=== PATIENT | male | born 1960 | race Caucasian/White ===

== ENCOUNTER 2021-07-14 10:33 | Observation (INO) | payer BC ==
[2021-07-14] MEDS ORDERED: SODIUM CHLORIDE 0.9% 1,000 ML IV STA (11:20)
--- NOTE | 2021-07-14 11:25 | ED ---
General Adult HPI - General Chief complaint: GI Bleed Stated complaint: abd pain Time Seen by Provider: 07/14/21 11:03 Source: patient, RN notes reviewed Mode of arrival: ambulatory Limitations: no limitations - History of Present Illness Initial comments: 60-year-old male presents to the emergency department for evaluation of dark stool. Patient states he has had 3 episodes of stool that is coffee-ground in appearance since yesterday evening. States he is currently on Cipro and Flagyl due to right upper quadrant abdominal pain that is suspected to be cholecystitis. Patient has not had any diagnostic studies, however he is scheduled for an ultrasound on the . States his right upper quadrant pain has mostly resolved, however became concerned about the dark stools so called his PCP who recommended he come to the ER. Patient reports intermittent nausea, though no vomiting. Describes the stools as loose, but not diarrhea. States he has seen a small amount of bright red bleeding on tissue after wiping. Patient reports a low-grade temperature over the past 2 weeks which he has been treating with Tylenol and Motrin. Patient denies sick exposures, headache, dizziness, chest pain, shortness of breath, difficulty breathing, hematuria, or dysuria. No recent travel or dietary changes. - Related Data Home Medications Medication Instructions Recorded Confirmed Ciprofloxacin HCl [Cipro] 500 mg PO Q12H 07/14/21 07/14/21 Desvenlafaxine Succinate [Pristiq 50 mg PO DAILY 07/14/21 07/14/21 ER] lisinopriL 10 mg PO DAILY 07/14/21 07/14/21 metroNIDAZOLE [Flagyl] 500 mg PO Q8H 07/14/21 07/14/21 Allergies Allergy/AdvReac Type Severity Reaction Status Date / Time Penicillins Allergy Rash/Hives Verified 07/14/21 14:54 Review of Systems ROS Statement: Those systems with pertinent positive or pertinent negative responses have been documented in the HPI. ROS Other: All systems not noted in ROS Statement are negative. Past Medical History Additional Past Medical History / Comment(s): Diverticululitis History of Any Multi-Drug Resistant Organisms: None Reported Past Surgical History: Tonsillectomy Past Psychological History: No Psychological Hx Reported Smoking Status: Never smoker Past Alcohol Use History: Rare Past Drug Use History: None Reported General Exam Limitations: no limitations (Well-developed, well-nourished male in no acute distress. Initial temperature 99.7, pulse 122, respirations 20, blood pressure 137/92, pulse ox 96% on room air.) General appearance: alert, in no apparent distress ENT exam: Present: normal exam, normal oropharynx, mucous membranes moist Respiratory exam: Present: normal lung sounds bilaterally. Absent: respiratory distress, wheezes, rales, rhonchi, stridor Cardiovascular Exam: Present: normal rhythm, tachycardia, normal heart sounds GI/Abdominal exam: Present: soft, normal bowel sounds, other (Abdomen is protuberant, but soft and nontender.). Absent: distended, tenderness, guarding, rebound, rigid Rectal exam: Present: normal rectal tone, hemorrhoids (external hemorrhoids present; no bleeding nor edematous) Back exam: Absent: CVA tenderness (R), CVA tenderness (L) Neurological exam: Present: alert, oriented X3, CN II-XII intact Psychiatric exam: Present: normal affect, anxious Skin exam: Present: warm, dry, intact, normal color. Absent: rash Course Vital Signs 07/14/21 07/14/21 07/14/21 10:39 12:10 15:03 Temperature 99.7 F H 99.6 F Pulse Rate 122 H 102 H 110 H Respiratory 20 18 18 Rate Blood Pressure 137/92 133/83 139/90 O2 Sat by Pulse 96 98 95 Oximetry 07/14/21 19:24 Temperature Pulse Rate 116 H Respiratory 18 Rate Blood Pressure 139/97 O2 Sat by Pulse 98 Oximetry - Reevaluation(s) Reevaluation #1: 07/14/21 16:[address] Wells regarding CT findings who recommends bringing this patient into the hospital to expedite process of evaluation. Medical Decision Making - Medical Decision Making 60-year-old male with past medical history of diverticulitis and depression presents to the emergency department for evaluation of dark stools that are coffee-ground in appearance. Had one episode last night and two additional today. Patient is currently taking oral antibiotics, Cipro and Flagyl, as prescribed by his PCP. Also scheduled for an ultrasound of the right upper quadrant later this week to rule out cholecystitis. Upon exam, patient is well-appearing and in no acute distress. He does appear anxious and has a slightly elevated temperature and mild tachycardia. Patient's abdomen is protuberant but soft, eliciting no pain upon palpation. Laboratory studies were obtained and reviewed. Patient does have mild leukocytosis. Hemoglobin stable. FOBT negative. Patient is not taking any iron supplementation in which to attribute dark stool. CT of the abdomen and pelvis was obtained showing a concerning retroperitoneal mass. Findings were discussed with Dr. Wells who recommends hospitalization to expedite evaluation. Spoke with Oma Quezada NP who is agreeable to accept this admission on behalf of [facility]. This patient's care was supervised by my attending, Dr. Burger. - Lab Data Result diagrams: 07/14/21 12:14 07/14/21 12:14 Lab Results 07/14/21 07/14/21 07/14/21 Range/Units 12:05 12:10 12:10 WBC (3.8-10.6) k/uL RBC (4.30-5.90) m/uL Hgb (13.0-17.5) gm/dL Hct (39.0-53.0) % MCV (80.0-100.0) fL MCH (25.0-35.0) pg MCHC (31.0-37.0) g/dL RDW (11.5-15.5) % Plt Count (150-450) k/uL MPV Neutrophils % (Manual) % Lymphocytes % (Manual) % Monocytes % (Manual) % Eosinophils % (Manual) % Basophils % (Manual) % Metamyelocytes % % Neutrophils # (Manual) (1.3-7.7) k/uL Lymphocytes # (Manual) (1.0-4.8) k/uL Monocytes # (Manual) (0-1.0) k/uL Eosinophils # (Manual) (0-0.7) k/uL Basophils # (Manual) (0-0.2) k/uL Metamyelocytes # (Man) (0) k/uL Nucleated RBCs (0-0) /100 WBC Manual Slide Review RBC Morphology PT (9.0-12.0) sec INR (<1.2) APTT (22.0-30.0) sec Sodium (137-145) mmol/L Potassium (3.5-5.1) mmol/L Chloride (98-107) mmol/L Carbon Dioxide (22-30) mmol/L Anion Gap mmol/L BUN (9-20) mg/dL Creatinine (0.66-1.25) mg/dL Est GFR (CKD-EPI)AfAm (>60 ml/min/1.73 sqM) Est GFR (CKD-EPI)NonAf (>60 ml/min/1.73 sqM) Glucose (74-99) mg/dL Plasma Lactic Acid Cheng (0.7-2.0) mmol/L Calcium (8.4-10.2) mg/dL Total Bilirubin (0.2-1.3) mg/dL AST (17-59) U/L ALT (4-49) U/L Alkaline Phosphatase (38-126) U/L Troponin I (0.000-0.034) ng/mL Total Protein (6.3-8.2) g/dL Albumin (3.5-5.0) g/dL Lipase (23-300) U/L Stool Occult Blood Negative (Negative) Blood Type A Positive Blood Type Confirm A Positive Blood Type Recheck No Previous Record Bld Type Recheck Status CABO Indicated Antibody Screen NEGATIVE Spec Expiration Date 07/17/2021 - 231307/14/21 07/14/21 07/14/21 Range/Units 12:14 12:14 12:14 WBC 12.6 H (3.8-10.6) k/uL RBC 4.55 (4.30-5.90) m/uL Hgb 13.2 (13.0-17.5) gm/dL Hct 38.6 L (39.0-53.0) % MCV 85.0 (80.0-100.0) fL MCH 29.1 (25.0-35.0) pg MCHC 34.3 (31.0-37.0) g/dL RDW 13.1 (11.5-15.5) % Plt Count 504 H (150-450) k/uL MPV 7.1 Neutrophils % (Manual) 72 % Lymphocytes % (Manual) 6 % Monocytes % (Manual) 21 % Eosinophils % (Manual) 1 % Basophils % (Manual) 1 % Metamyelocytes % 1 % Neutrophils # (Manual) 9.07 H (1.3-7.7) k/uL Lymphocytes # (Manual) 0.76 L (1.0-4.8) k/uL Monocytes # (Manual) 2.65 H (0-1.0) k/uL Eosinophils # (Manual) 0.13 (0-0.7) k/uL Basophils # (Manual) 0.13 (0-0.2) k/uL Metamyelocytes # (Man) 0.13 H (0) k/uL Nucleated RBCs 0 (0-0) /100 WBC Manual Slide Review Performed RBC Morphology Normal PT 12.2 H (9.0-12.0) sec INR 1.1 (<1.2) APTT 23.7 (22.0-30.0) sec Sodium 132 L (137-145) mmol/L Potassium 4.1 (3.5-5.1) mmol/L Chloride 102 (98-107) mmol/L Carbon Dioxide 27 (22-30) mmol/L Anion Gap 3 mmol/L BUN 14 (9-20) mg/dL Creatinine 0.86 (0.66-1.25) mg/dL Est GFR (CKD-EPI)AfAm >90 (>60 ml/min/1.73 sqM) Est GFR (CKD-EPI)NonAf >90 (>60 ml/min/1.73 sqM) Glucose 105 H (74-99) mg/dL Plasma Lactic Acid Cheng (0.7-2.0) mmol/L Calcium 9.1 (8.4-10.2) mg/dL Total Bilirubin 0.5 (0.2-1.3) mg/dL AST 27 (17-59) U/L ALT 22 (4-49) U/L Alkaline Phosphatase 78 (38-126) U/L Troponin I (0.000-0.034) ng/mL Total Protein 5.8 L (6.3-8.2) g/dL Albumin 3.1 L (3.5-5.0) g/dL Lipase 167 (23-300) U/L Stool Occult Blood (Negative) Blood Type Blood Type Confirm Blood Type Recheck Bld Type Recheck Status Antibody Screen Spec Expiration Date 07/14/21 07/14/21 Range/Units 12:14 12:14 WBC (3.8-10.6) k/uL RBC (4.30-5.90) m/uL Hgb (13.0-17.5) gm/dL Hct (39.0-53.0) % MCV (80.0-100.0) fL MCH (25.0-35.0) pg MCHC (31.0-37.0) g/dL RDW (11.5-15.5) % Plt Count (150-450) k/uL MPV Neutrophils % (Manual) % Lymphocytes % (Manual) % Monocytes % (Manual) % Eosinophils % (Manual) % Basophils % (Manual) % Metamyelocytes % % Neutrophils # (Manual) (1.3-7.7) k/uL Lymphocytes # (Manual) (1.0-4.8) k/uL Monocytes # (Manual) (0-1.0) k/uL Eosinophils # (Manual) (0-0.7) k/uL Basophils # (Manual) (0-0.2) k/uL Metamyelocytes # (Man) (0) k/uL Nucleated RBCs (0-0) /100 WBC Manual Slide Review RBC Morphology PT (9.0-12.0) sec INR (<1.2) APTT (22.0-30.0) sec Sodium (137-145) mmol/L Potassium (3.5-5.1) mmol/L Chloride (98-107) mmol/L Carbon Dioxide (22-30) mmol/L Anion Gap mmol/L BUN (9-20) mg/dL Creatinine (0.66-1.25) mg/dL Est GFR (CKD-EPI)AfAm (>60 ml/min/1.73 sqM) Est GFR (CKD-EPI)NonAf (>60 ml/min/1.73 sqM) Glucose (74-99) mg/dL Plasma Lactic Acid Cheng 1.1 (0.7-2.0) mmol/L Calcium (8.4-10.2) mg/dL Total Bilirubin (0.2-1.3) mg/dL AST (17-59) U/L ALT (4-49) U/L Alkaline Phosphatase (38-126) U/L Troponin I <0.012 (0.000-0.034) ng/mL Total Protein (6.3-8.2) g/dL Albumin (3.5-5.0) g/dL Lipase (23-300) U/L Stool Occult Blood (Negative) Blood Type Blood Type Confirm Blood Type Recheck Bld Type Recheck Status Antibody Screen Spec Expiration Date - Radiology Data Radiology results: report reviewed, image reviewed Disposition Clinical Impression: Retroperitoneal mass, Dark stools Disposition: ADMITTED IP TO THIS [facility] Condition: Serious Decision Date: 07/14/21 Decision Time: 16:47
[2021-07-14 12:39] LABS: ALT 22 U/L (4-49); AST 27 U/L (17-59); African American GFR (CKD) >90 (>60 ml/min/1.73 sqM); Albumin 3.1 g/dL (3.5-5.0); Alkaline Phosphatase 78 U/L (38-126); Anion Gap 3 mmol/L; Blood Urea Nitrogen 14 mg/dL (9-20); Calcium 9.1 mg/dL (8.4-10.2); Carbon Dioxide 27 mmol/L (22-30); Chloride 102 mmol/L (98-107); Glucose 105 mg/dL (74-99); Lipase 167 U/L (23-300); Non-African American GFR(CKD) >90 (>60 ml/min/1.73 sqM); Potassium 4.1 mmol/L (3.5-5.1); Sodium 132 mmol/L (137-145); Total Bilirubin 0.5 mg/dL (0.2-1.3); Total Protein 5.8 g/dL (6.3-8.2)
[2021-07-14 12:42] LABS: HCT 38.6 % (39.0-53.0); HGB 13.2 gm/dL (13.0-17.5); INR 1.1 (<1.2); MCH 29.1 pg (25.0-35.0); MCHC 34.3 g/dL (31.0-37.0); Mean Platelet Volume 7.1; Partial Thromboplastin Time 23.7 sec (22.0-30.0); Platelet Count 504 k/uL (150-450); Prothrombin Time 12.2 sec (9.0-12.0); RBC 4.55 m/uL (4.30-5.90); RDW 13.1 % (11.5-15.5); WBC 12.6 k/uL (3.8-10.6)
--- NOTE | 2021-07-14 13:28 | CT ---
EXAMINATION TYPE: CT abdomen pelvis w con DATE OF EXAM: 07/14/2021 COMPARISON: CT 08/13/2012 HISTORY: Hx Diverticulitis, abd pain CT DLP: 1304.1 mGycm Automated exposure control for dose reduction was used. TECHNIQUE: Helical acquisition of images from the lung bases through the pelvis have been completed. CONTRAST: Performed without Oral Contrast and with IV Contrast, patient injected with 100 ml mL of Isovue 300. FINDINGS: LUNG BASES: No significant abnormality is appreciated. AORTA: No significant abnormality is appreciated. LIVER/GB: No significant abnormality is appreciated. PANCREAS: No significant abnormality is seen. SPLEEN: No significant abnormality is seen. ADRENALS: No significant abnormality is seen. KIDNEYS: There is been interval development of a large soft tissue mass associated with the lower kalyn e of the right kidney measuring approximately 9.8 cm in cephalad to caudal dimension by 10 cm in AP d imension by 9.3 cm in transverse dimension. There is some thickening of the fascia anterior to the ri ght kidney, multiple enlarged nodes are present at this level. REPRODUCTIVE ORGANS: Prostate is enlarged line there is prominence of the seminal vesicles as on prio r exam BOWEL: Some diverticular changes associated with the colon. Mass at the lower pole of the right kidn ey and midpole extends and shows contact with the right colon, cecum region FREE AIR: No Free Air visible. ASCITES: None visible. PELVIC ADENOPATHY: Some mild inflammatory changes are present along the iliac vasculature on the rig ht, findings are indeterminate. RETROPERITONEAL ADENOPATHY: Large retroperitoneal mass is present anterior to the aorta measuring ap proximately 9.3 cm in transverse dimension by 7 cm in AP dimension by 8 cm in cephalad to caudal dime nsion and is likely adherent to the anterior aspect of the aorta, partially encasing the inferior mes enteric artery, there are additional enlarged retroperitoneal nodes at the level of the aorta and inf erior vena cava URINARY BLADDER: No significant abnormality is seen. OSSEOUS STRUCTURES: No significant abnormality is seen. IMPRESSION: CORRELATE FOR POSSIBLE LYMPHOMA with involvement of the kidney and possibly cecum as described
[2021-07-14 13:37] LABS: Basophils # (M) 0.13 k/uL (0-0.2); Eosinophils # (M) 0.13 k/uL (0-0.7); Lymphocytes # (M) 0.76 k/uL (1.0-4.8); Metamyelocytes # (M) 0.13 k/uL (0); Metamyelocytes % 1 %; Monocytes # (M) 2.65 k/uL (0-1.0); Neutrophils # (M) 9.07 k/uL (1.3-7.7); Neutrophils % (M) 72 %; Nucleated Red Blood Cells 0 /100 WBC (0-0); Total Cells Counted 200
[2021-07-14] MEDS ORDERED: ALPRAZolam 0.25 MG TAB PO PRN (16:43)
[2021-07-14] MEDS ORDERED: HYDROmorphone 0.5 MG/0.5 ML SYRINGE IVP PRN (16:43)
[2021-07-14] MEDS ORDERED: ONDANSETRON 4 MG/2 ML VIAL IVP PRN (16:43)
[2021-07-14] MEDS ORDERED: NALOXONE 0.4 MG/ML 1 ML VIAL IV PRN (16:43)
[2021-07-14] MEDS: FAMOTIDINE 20 MG TAB PO SCH (21:59)
[2021-07-15] MEDS: lisinopriL 10 MG TAB PO SCH (09:46)
[2021-07-15] MEDS: FAMOTIDINE 20 MG TAB PO SCH (09:46)
[2021-07-15] MEDS: DESVENLAFAXINE SUCCINATE 50 MG TAB.ER.24H PO SCH (09:46)
[2021-07-15] MEDS ORDERED: RX INFO: IV CONTRAST WAS GIVEN 1 EACH MISC MISCELLANE PRN (10:47)
[2021-07-15 10:50] LABS: HCT 37.3 % (39.6-50.0); HGB 12.1 g/dL (13.0-17.0); MCH 27.6 pg (27.0-32.0); MCHC 32.4 g/dL (32.0-37.0); MCV 85.2 fL (80.0-97.0); Platelet Count 470 X 10*3/uL (140-440); RBC 4.38 X 10*6/uL (4.40-5.60); RDW 12.7 % (11.5-14.5); WBC 12.64 X 10*3/uL (4.50-10.00)
[2021-07-15 11:17] LABS: Anion Gap 11.1 mmol/L (10.00-18.00); BUN/Creat Ratio 15.89 Ratio (12.00-20.00); Blood Urea Nitrogen 14.3 mg/dL (9.0-27.0); Calcium 8.7 mg/dL (8.7-10.3); Carbon Dioxide 22.9 mmol/L (20.0-27.5); Non-African American GFR(CKD) 93.2 (60.0-200.0); Potassium 4.9 mmol/L (3.5-5.5)
--- NOTE | 2021-07-15 12:09 | P.CONS ---
History of Present Illness - Reason for Consult Consult date: 07/15/21 Retroperitoneeal Mass Requesting physician: Janee Rnagel - Chief Complaint Abdominal Pain - History of Present Illness Mr. Santana is a pleasant male who presented with Right Upper quadrant abdominal pain. CT scan in emergency department was performed and revealed conc erning findings that are possibly consistent with malignancy. CT Abdomen and Pelvis revealed Large Retroperitoneal mass present anterior to the aorta, approximately 9.3cm in transverse dimension by 7cm AP, by 8cm in cephalad to caudal dimension and is likely adherent to the anterior aspect of the aorta. Radiologist also notes partial encasement of the inferior mesenteric artery. Additional enlarged lymph nodes at the level of the aorta and inferior to the vena cava. Right kidney was also mentioned as a lower pole mass and midpole mass extends and contacts with the right colon and cecum. Enlarged prostate noted. Because of these finding the emergency department team contacted Dr. Wells and have asked us to further evaluate. Patient seen and examined this morning. There was no palpable adenopathy on exam. Review of Systems All systems: negative Constitutional: Reports as per HPI Past Medical History Past Medical History: Hyperlipidemia, Hypertension, Pneumonia Additional Past Medical History / Comment(s): Diverticululitis History of Any Multi-Drug Resistant Organisms: None Reported Past Surgical History: Tonsillectomy Additional Past Surgical History / Comment(s): mumps, colonoscopy 2016 Past Anesthesia/Blood Transfusion Reactions: No Reported Reaction Past Psychological History: No Psychological Hx Reported Smoking Status: Never smoker Past Alcohol Use History: Rare Past Drug Use History: None Reported - Past Family History Mother Family Medical History: Cancer Additional Family Medical History / Comment(s): at age 45 of breast cancer Father Family Medical History: AFIB, Myocardial Infarction ([place]) Additional Family Medical History / Comment(s): cabbag. Sister(s) Family Medical History: Cancer Additional Family Medical History / Comment(s): breast cancer Medications and Allergies Home Medications Medication Instructions Recorded Confirmed Type Ciprofloxacin HCl [Cipro] 500 mg PO Q12H 07/14/21 07/14/21 History Desvenlafaxine Succinate [Pristiq 50 mg PO DAILY 07/14/21 07/14/21 History ER] lisinopriL 10 mg PO DAILY 07/14/21 07/14/21 History metroNIDAZOLE [Flagyl] 500 mg PO Q8H 07/14/21 07/14/21 History Allergies Allergy/AdvReac Type Severity Reaction Status Date / Time Penicillins Allergy Rash/Hives Verified 07/14/21 14:54 Physical Exam Vitals: Vital Signs Temp Pulse Pulse Resp BP BP Pulse Ox 07/15/21 08:00 99.3 F 117 H 16 135/84 94 L 07/15/21 02:44 99.2 F 112 H 18 124/82 94 L 07/14/21 21:25 98.2 F 128 H 20 151/82 94 L 07/14/21 19:24 116 H 18 139/97 98 07/14/21 15:03 99.6 F 110 H 18 139/90 95 07/14/21 12:10 102 H 18 133/83 98 Intake and Output 07/14/21 07/15/21 07/15/21 22:59 06:59 14:59 Other: # Voids 1 Weight 81.647 kg - Constitutional General appearance: cooperative, no acute distress - EENT Eyes: EOMI, PERRLA ENT: NA/AT, normal oropharynx - Neck Neck: normal ROM - Respiratory Respiratory: bilateral: CTA - Cardiovascular Rhythm: regular - Gastrointestinal General gastrointestinal: normal bowel sounds, tenderness - Integumentary Integumentary: pale - Neurologic Neurologic: CNII-XII intact - Musculoskeletal Musculoskeletal: generalized weakness, strength equal bilaterally - Psychiatric Psychiatric: A&O x's 3, appropriate affect, intact judgment & insight Results CBC & Chem 7: 07/15/21 07:57 07/15/21 07:57 Labs: Abnormal Lab Results - Last 24 Hours (Table) 07/14/21 07/14/21 07/14/21 Range/Units 12:14 12:14 12:14 WBC 12.6 H (3.8-10.6) k/uL RBC (4.40-5.60) X 10*6/uL Hgb (13.0-17.0) g/dL Hct 38.6 L (39.0-53.0) % Plt Count 504 H (150-450) k/uL MPV (9.5-12.2) fL Neutrophils # (Manual) 9.07 H (1.3-7.7) k/uL Lymphocytes # (Manual) 0.76 L (1.0-4.8) k/uL Monocytes # (Manual) 2.65 H (0-1.0) k/uL Metamyelocytes # (Man) 0.13 H (0) k/uL PT 12.2 H (9.0-12.0) sec Sodium 132 L (137-145) mmol/L Glucose 105 H (74-99) mg/dL Total Protein 5.8 L (6.3-8.2) g/dL Albumin 3.1 L (3.5-5.0) g/dL 07/15/21 Range/Units 07:57 WBC 12.64 H (3.8-10.6) k/uL RBC 4.38 L (4.40-5.60) X 10*6/uL Hgb 12.1 L (13.0-17.0) g/dL Hct 37.3 L (39.0-53.0) % Plt Count 470 H (150-450) k/uL MPV 9.0 L (9.5-12.2) fL Neutrophils # (Manual) (1.3-7.7) k/uL Lymphocytes # (Manual) (1.0-4.8) k/uL Monocytes # (Manual) (0-1.0) k/uL Metamyelocytes # (Man) (0) k/uL PT (9.0-12.0) sec Sodium (137-145) mmol/L Glucose (74-99) mg/dL Total Protein (6.3-8.2) g/dL Albumin (3.5-5.0) g/dL CT scan - abdomen: report reviewed CT scan - pelvis: report reviewed Assessment and Plan (1) Renal mass, right Narrative/Plan: - We have asked Interventional radiology to assess for possible tissue biopsy of of this abnoormality. Will wait their evaluation and decision. Current Visit: Yes Status: Acute Code(s): N28.89 - OTHER SPECIFIED DISORDERS OF KIDNEY AND URETER SNOMED Code(s): 982047268 (2) Retroperitoneal mass Current Visit: Yes Status: Acute Code(s): R19.00 - INTRA-ABD AND PELVIC SWELLING, MASS AND LUMP, UNSP SITE SNOMED Code(s): 25247552 Plan: Will move forward with full staging order for CT chest with contrast placed Will discuss further with IR for possible access point and tissue biopsy for definitive diagnosis Will await pathology to result and further plan of action can then be determined Dr. Wells has discussed the to date findings with patient and answered all of his questions at this point, he is agreeable to further diagnostic approach and plan. Physician Attest: I have completed the full history and physical and agree with above dictation, dictated as a ascribe.
[2021-07-15 12:19] LABS: Basophils # (A) 0.06 X 10*3/uL (0.00-0.10); Basophils % (A) 0.5 %; Eosinophils # (A) 0.05 X 10*3/uL (0.04-0.35); Eosinophils % (A) 0.4 %; Lymphocytes # (A) 0.73 X 10*3/uL (0.90-5.00); Lymphocytes % (A) 5.8 %; Monocytes # (A) 1.84 X 10*3/uL (0.20-1.00); Monocytes % (A) 14.6 %; Neutrophils # (A) 9.91 X 10*3/uL (1.80-7.70); Neutrophils % (A) 78.3 %
[2021-07-15 12:20] LABS: Microcytosis (M) 2+
[2021-07-15 12:35] LABS: ALT 22 U/L (4-49); AST 31 U/L (17-59); African American GFR (CKD) >90 (>60 ml/min/1.73 sqM); Albumin 3.3 g/dL (3.5-5.0); Albumin/Globulin Ratio 1.3; Alkaline Phosphatase 73 U/L (38-126); Anion Gap 10 mmol/L; Blood Urea Nitrogen 16 mg/dL (9-20); Calcium 9.1 mg/dL (8.4-10.2); Carbon Dioxide 20 mmol/L (22-30); Chloride 101 mmol/L (98-107); Globulin 2.6 g/dL; Glucose 112 mg/dL (74-99); Non-African American GFR(CKD) >90 (>60 ml/min/1.73 sqM); Potassium 4.7 mmol/L (3.5-5.1); Sodium 131 mmol/L (137-145); Total Bilirubin 0.5 mg/dL (0.2-1.3); Total Protein 5.9 g/dL (6.3-8.2)
--- NOTE | 2021-07-15 12:37 | P.HPIM ---
History of Present Illness Patient is pleasant 60-year-old male came in with complaints of dark stool about 3 episodes yesterday and some coffee-ground emesis patient was also having right upper quadrant abdominal pain this abdominal pain is associated with food. Patient had an abdominal CT which showed her to be terminal lymphadenopathy consistent with lymphoma because of which oncology was consulted and patient was admitted patient hemoglobin yesterday was around 13 and came down to 12 patient is bit hyponatremic does have leukocytosis which probably 60 secondary to lymphoma. Patient denied any fever chills patient doesn't have any evidence of sepsis at this time. Patient had a fecal occult blood testing which was negative. Patient was also having nausea with the abdominal pain which is predominantly in the right upper quadrant sharp in nature nonradiating. Whenever he has this pain is moderate in severity. REVIEW OF SYSTEMS: CONSTITUTIONAL: No fever, no malaise, no fatigue. HEENT: No recent visual problems or hearing problems. Denied any sore throat. CARDIOVASCULAR: No chest pain, orthopnea, PND, no palpitations, no syncope. PULMONARY: No shortness of breath, no cough, no hemoptysis. GASTROINTESTINAL: No diarrhea. NEUROLOGICAL: No headaches, no weakness, no numbness. HEMATOLOGICAL: Denies any bleeding or petechiae. GENITOURINARY: Denies any burning micturition, frequency, or urgency. MUSCULOSKELETAL/RHEUMATOLOGICAL: Denies any joint pain, swelling, or any muscle pain. ENDOCRINE: Denies any polyuria or polydipsia. The rest of the 14-point review of systems is negative. PHYSICAL EXAMINATION: GENERAL: The patient is alert and oriented x3, not in any acute distress. Well developed, well nourished. HEENT: Pupils are round and equally reacting to light. EOMI. No scleral icterus. No conjunctival pallor. Normocephalic, atraumatic. No pharyngeal erythema. No thyromegaly. CARDIOVASCULAR: S1 and S2 present. No murmurs, rubs, or gallops. PULMONARY: Chest is clear to auscultation, no wheezing or crackles. ABDOMEN: Soft, nontender, nondistended, normoactive bowel sounds. No palpable organomegaly. MUSCULOSKELETAL: No joint swelling or deformity. EXTREMITIES: No cyanosis, clubbing, or pedal edema. NEUROLOGICAL: Gross neurological examination did not reveal any focal deficits. SKIN: No rashes. Assessment and plan -Dark stools which resolved at this time I cannot rule out the upper GI bleed consisting his symptoms of hematemesis again although patient's symptoms resolved at this time we'll consult general surgery for possible upper GI endoscopy -Possibility of acute blood loss anemia from possible upper GI bleed -Right upper quadrant abdominal pain Will rule out cholelithiasis/clinically doesn't appear to have any cholecystitis will obtain ultrasound of the abdomen. Most probably has peptic ulcer disease patient will be started on Protonix Pepcid will be discontinued -Leukocytosis secondary to lymphoma -Incidental finding of a troponin lymphadenopathy biopsy was ordered for this lymphadenopathy -Tachycardia: We will obtain EKG and a TSH can be hypovolemia patient was started on IV fluids and-possible hypovolemic hyponatremia will be started on IV fluids at 100 mL per hour -Hyperlipidemia -Hypertension DVT prophylaxis: SCDs for now. Past Medical History Past Medical History: Hyperlipidemia, Hypertension, Pneumonia Additional Past Medical History / Comment(s): Diverticululitis History of Any Multi-Drug Resistant Organisms: None Reported Past Surgical History: Tonsillectomy Additional Past Surgical History / Comment(s): mumps, colonoscopy 2016 Past Anesthesia/Blood Transfusion Reactions: No Reported Reaction Past Psychological History: No Psychological Hx Reported Smoking Status: Never smoker Past Alcohol Use History: Rare Past Drug Use History: None Reported - Past Family History Mother Family Medical History: Cancer Additional Family Medical History / Comment(s): at age 45 of breast cancer Father Family Medical History: AFIB, Myocardial Infarction ([place]) Additional Family Medical History / Comment(s): cabbag. Sister(s) Family Medical History: Cancer Additional Family Medical History / Comment(s): breast cancer Medications and Allergies Home Medications Medication Instructions Recorded Confirmed Type Ciprofloxacin HCl [Cipro] 500 mg PO Q12H 07/14/21 07/14/21 History Desvenlafaxine Succinate [Pristiq 50 mg PO DAILY 07/14/21 07/14/21 History ER] lisinopriL 10 mg PO DAILY 07/14/21 07/14/21 History metroNIDAZOLE [Flagyl] 500 mg PO Q8H 07/14/21 07/14/21 History Allergies Allergy/AdvReac Type Severity Reaction Status Date / Time Penicillins Allergy Rash/Hives Verified 07/14/21 14:54 Physical Exam Vitals: Vital Signs Temp Pulse Pulse Resp BP BP Pulse Ox 07/15/21 08:00 99.3 F 117 H 16 135/84 94 L 07/15/21 02:44 99.2 F 112 H 18 124/82 94 L 07/14/21 21:25 98.2 F 128 H 20 151/82 94 L 07/14/21 19:24 116 H 18 139/97 98 07/14/21 15:03 99.6 F 110 H 18 139/90 95 Intake and Output 07/14/21 07/15/21 07/15/21 22:59 06:59 14:59 Other: # Voids 1 Weight 81.647 kg Results CBC & Chem 7: 07/15/21 07:57 07/15/21 11:56 Labs: Abnormal Lab Results - Last 24 Hours (Table) 07/14/21 07/14/21 07/14/21 Range/Units 12:14 12:14 12:14 WBC 12.6 H (3.8-10.6) k/uL RBC (4.40-5.60) X 10*6/uL Hgb (13.0-17.0) g/dL Hct 38.6 L (39.0-53.0) % Plt Count 504 H (150-450) k/uL MPV (9.5-12.2) fL Immature Gran # (0.00-0.04) X 10*3/uL Neutrophils # (1.80-7.70) X 10*3/uL Neutrophils # (Manual) 9.07 H (1.3-7.7) k/uL Lymphocytes # (0.90-5.00) X 10*3/uL Lymphocytes # (Manual) 0.76 L (1.0-4.8) k/uL Monocytes # (0.20-1.00) X 10*3/uL Monocytes # (Manual) 2.65 H (0-1.0) k/uL Metamyelocytes # (Man) 0.13 H (0) k/uL PT 12.2 H (9.0-12.0) sec Sodium 132 L (137-145) mmol/L Carbon Dioxide (22-30) mmol/L Glucose 105 H (74-99) mg/dL Total Protein 5.8 L (6.3-8.2) g/dL Albumin 3.1 L (3.5-5.0) g/dL 07/15/21 07/15/21 07/15/21 Range/Units 07:57 07:57 11:56 WBC 12.64 H (3.8-10.6) k/uL RBC 4.38 L (4.40-5.60) X 10*6/uL Hgb 12.1 L (13.0-17.0) g/dL Hct 37.3 L (39.0-53.0) % Plt Count 470 H (150-450) k/uL MPV 9.0 L (9.5-12.2) fL Immature Gran # 0.05 H (0.00-0.04) X 10*3/uL Neutrophils # 9.91 H (1.80-7.70) X 10*3/uL Neutrophils # (Manual) (1.3-7.7) k/uL Lymphocytes # 0.73 L (0.90-5.00) X 10*3/uL Lymphocytes # (Manual) (1.0-4.8) k/uL Monocytes # 1.84 H (0.20-1.00) X 10*3/uL Monocytes # (Manual) (0-1.0) k/uL Metamyelocytes # (Man) (0) k/uL PT (9.0-12.0) sec Sodium 134 L 131 L (137-145) mmol/L Carbon Dioxide 20 L (22-30) mmol/L Glucose 112 H (74-99) mg/dL Total Protein 5.9 L (6.3-8.2) g/dL Albumin 3.3 L (3.5-5.0) g/dL Thrombosis Risk Factor Assmnt - Choose All That Apply Any of the Below Risk Factors Present?: Yes Each Factor Represents 1 point: Age 41-60 years, Obesity (BMI >25) Other Risk Factors: Yes Each Risk Factor Represents 2 Points: Malignancy Other congenital or acquired thrombophilia - If yes, enter type in comment: No Thrombosis Risk Factor Assessment Total Risk Factor Score: 4 Thrombosis Risk Factor Assessment Level: Moderate Risk
--- NOTE | 2021-07-15 14:05 | CT ---
EXAMINATION TYPE: CT chest w con DATE OF EXAM: 07/15/2021 COMPARISON: CT abdomen and pelvis 07/14/2021 HISTORY: 60-year-old male enlarged lymph nodes, staging exam TECHNIQUE: Contiguous axial scanning of the chest after the administration of 100 mL of Isovue 300. Coronal/sagittal reconstructions performed. CT DLP: 744mGycm. Automatic exposure control utilized for a dose reduction. FINDINGS: Heart normal size with trace anterior pericardial fluid. Aorta normal caliber with conventional arch vessel branching anatomy. No axillary, internal mammary chain, mediastinal, retrocrural, or hilar lymphadenopathy by CT size cr iteria. Strandy areas of atelectasis or scarring in the lower lungs. No consolidation or pleural effusion oth erwise seen. No suspicious pulmonary nodule or mass. Visualized upper abdomen shows no retroperitoneal lymphadenopathy and partially visualized mass invol ving the lateral aspect of the right kidney. Bones: No osseous destructive process. IMPRESSION: 1. No thoracic lymphadenopathy by CT size criteria. No suspicious pulmonary nodules. 2. Strandy areas of atelectasis or scarring in the lower lungs. 3. Known retroperitoneal lymphadenopathy in the upper abdomen and partially visualized right renal ma ss.
--- NOTE | 2021-07-15 14:26 | CT ---
EXAMINATION TYPE: CT biopsy renal RT DATE OF EXAM: 07/15/2021 COMPARISON: NONE HISTORY: Right renal mass CT DLP: 1304.1 mGycm The procedure was explained to the patient. The risks, complications, benefits, and alternatives wer e discussed and any questions were answered. Informed consent was obtained. Patient was placed pron e on the CT table and prepped and draped in the usual sterile fashion. Utilizing CT guidance, an 18 gauge core biopsy needle access into the r x-rays x-rays right renal mas s was achieved and two 18 gauge core samples were obtained. The patient was stable throughout the pr ocedure and remained stable upon discharge. IMPRESSION: Successful core biopsy of the right renal mass under CT guidance.
[2021-07-15] MEDS: SODIUM CHLORIDE 0.9% 1,000 ML IV SCH ×2 (14:33→20:35)
[2021-07-15 15:00] VITALS: BMI 30.9
--- NOTE | 2021-07-15 16:09 | US ---
EXAMINATION TYPE: US gallbladder DATE OF EXAM: 07/15/2021 COMPARISON: CT 07/14/2021 CLINICAL HISTORY: r/o gallstones . Kidney mass, Gallbladder scan post CT scan EXAM MEASUREMENTS: Liver Length: 17.5 cm Gallbladder Wall: 0.2 cm CBD: 0.5 cm Right Kidney: 14.1 x7.9 x 9.4 cm Pancreas: Tail obscured by overlying bowel gas Liver: Obscured by overlying bowel gas Gallbladder: No stones seen Evidence for sonographic Leblanc's sign: No CBD: wnl Right Kidney: Prominent renal pelvis , large Hypoechoic mass with internal vascularity measuring 7.7 x 6.7 x 8.6cm Large Kidney mass seen with internal vascularity, limited exam due to patient body habitus and bowel gas. IMPRESSION: 1. Large right renal mass measuring 8.6 cm. 2. No diagnostic evidence of gallstones.
--- NOTE | 2021-07-15 16:34 | P.GSCN ---
History of Present Illness Consult date: 07/15/21 History of present illness: CHIEF COMPLAINT: GI bleed HISTORY OF PRESENT ILLNESS: This is a 60-year-old male who presented to the emergency room with dark stools. He reports that he was having black stools that started yesterday evening. He is currently been on antibiotics for right upper quadrant abdominal pain with suspected cholecystitis. He is scheduled for an ultrasound on July 17. His rapid quadrant abdominal pain has resolved. He denies any nausea or vomiting. Hemoglobin 13.2 on admission down to 12.1. Patient had a computed tomography scan of the abdomen that reported to correlate for possible lymphoma and concerns of a large retroperitoneal mass. He is scheduled for biopsy by interventional radiology. And oncology is following. Surgical service has been consult for EGD for further evaluation of his stools. Fecal occult blood was negative. PAST MEDICAL HISTORY: Diverticulitis PAST SURGICAL HISTORY: See list. MEDICATIONS: See list. ALLERGIES: See list. SOCIAL HISTORY: No illicit drug use. REVIEW OF SYSTEMS: CONSTITUTIONAL: Denies fever or chills. HEENT: Denies blurred vision, vision changes, or eye pain. Denies hemoptysis CARDIOVASCULAR: Denies chest pain or pressure. RESPIRATORY: No shortness of breath. GASTROINTESTINAL: See HPI for pertinent findings HEMATOLOGIC: Denies bleeding disorders. GENITOURINARY: Denies any blood in urine or increased urinary frequency. SKIN: Denies pruitis. Denies rash. PHYSICAL EXAM: VITAL SIGNS: Reviewed GENERAL: Well-developed in no acute distress. HEENT: No sclera icterus. Extraocular movements grossly intact. Moist buccal mucosa. Head is atraumatic, normocephalic. No nasal drainage. ABDOMEN: Soft. Nondistended. Nontender NEUROLOGIC: Alert and oriented. Cranial nerves II through XII grossly intact. LABORATORY DATA: WBC is 12.64 hemoglobin 12.1 platelets 470 Sodium 131 potassium 4.7 creatinine 0.74 TSH is 0.722 Stool for occult blood negative C. diff negative COVID-19 not detected IMAGING: Computed tomography scan of pelvis correlate for possible lymphoma with involvement of the kidney and possible cecum as described. There is a large retroperitoneal mass measuring 9.3 cm. Large soft tissue mass associated with the lower pole of the kidney Chest CT no suspicious pulmonary nodules no thoracic lymphadenopathy. Known retroperitoneal lymphadenopathy in the upper abdomen and partially visualized right renal mass Gallbladder ultrasound shows large right renal mass measuring 8.6 cm. No diagnostic evidence of gallstones. Leblanc sign negative CBD within normal limits. ASSESSMENT: 1. Black stools and concerns of GI bleed 2. Large right renal mass status post core biopsy 3. Retroperitoneal mass PLAN: -Patient scheduled for EGD with Dr. ferrera tomorrow 07/16/2021 -Keep patient nothing by mouth after midnight -Continue PPI -Continue monitor for any signs or symptoms of bleeding -Continue to monitor hemoglobin -Continue oncology workup -Continue supportive care Thank you for this consultation Physician Cafe Operator note has been reviewed by physician. Signing provider agrees with the documented findings, assessment, and plan of care. Past Medical History Past Medical History: Hyperlipidemia, Hypertension, Pneumonia Additional Past Medical History / Comment(s): Diverticululitis History of Any Multi-Drug Resistant Organisms: None Reported Past Surgical History: Tonsillectomy Additional Past Surgical History / Comment(s): mumps, colonoscopy 2016 Past Anesthesia/Blood Transfusion Reactions: No Reported Reaction Past Psychological History: No Psychological Hx Reported Smoking Status: Never smoker Past Alcohol Use History: Rare Past Drug Use History: None Reported - Past Family History Mother Family Medical History: Cancer Additional Family Medical History / Comment(s): at age 45 of breast cancer Father Family Medical History: AFIB, Myocardial Infarction ([place]) Additional Family Medical History / Comment(s): cabbag. Sister(s) Family Medical History: Cancer Additional Family Medical History / Comment(s): breast cancer Medications and Allergies Home Medications Medication Instructions Recorded Confirmed Type Ciprofloxacin HCl [Cipro] 500 mg PO Q12H 07/14/21 07/14/21 History Desvenlafaxine Succinate [Pristiq 50 mg PO DAILY 07/14/21 07/14/21 History ER] lisinopriL 10 mg PO DAILY 07/14/21 07/14/21 History metroNIDAZOLE [Flagyl] 500 mg PO Q8H 07/14/21 07/14/21 History Allergies Allergy/AdvReac Type Severity Reaction Status Date / Time Penicillins Allergy Rash/Hives Verified 07/14/21 14:54 Surgical - Exam Vital Signs Temp Pulse Resp BP Pulse Ox 99.7 F H 122 H 20 137/92 96 07/14/21 10:39 07/14/21 10:39 07/14/21 10:39 07/14/21 10:39 07/14/21 10:39 Results - Labs 07/15/21 07:57 07/15/21 11:56 Abnormal Lab Results - Last 24 Hours (Table) 07/15/21 07/15/21 07/15/21 Range/Units 07:57 07:57 11:56 WBC 12.64 H (4.50-10.00) X 10*3/uL RBC 4.38 L (4.40-5.60) X 10*6/uL Hgb 12.1 L (13.0-17.0) g/dL Hct 37.3 L (39.6-50.0) % Plt Count 470 H (140-440) X 10*3/uL MPV 9.0 L (9.5-12.2) fL Immature Gran # 0.05 H (0.00-0.04) X 10*3/uL Neutrophils # 9.91 H (1.80-7.70) X 10*3/uL Lymphocytes # 0.73 L (0.90-5.00) X 10*3/uL Monocytes # 1.84 H (0.20-1.00) X 10*3/uL Sodium 134 L 131 L (135-145) mmol/L Carbon Dioxide 20 L (22-30) mmol/L Glucose 112 H (74-99) mg/dL Total Protein 5.9 L (6.3-8.2) g/dL Albumin 3.3 L (3.5-5.0) g/dL Diabetes panel 07/15/21 07/15/21 Range/Units 07:57 11:56 Sodium 134 L 131 L (135-145) mmol/L Potassium 4.9 4.7 (3.5-5.5) mmol/L Chloride 100 101 (96-109) mmol/L Carbon Dioxide 22.9 20 L (20.0-27.5) mmol/L BUN 14.3 16 (9.0-27.0) mg/dL Creatinine 0.9 0.74 (0.6-1.5) mg/dL Glucose 101 112 H (70-110) mg/dL Calcium 8.7 9.1 (8.7-10.3) mg/dL AST 31 (17-59) U/L ALT 22 (4-49) U/L Alkaline Phosphatase 73 (38-126) U/L Total Protein 5.9 L (6.3-8.2) g/dL Albumin 3.3 L (3.5-5.0) g/dL Thyroid panel 07/15/21 Range/Units 11:56 TSH 0.722 (0.465-4.680) mIU/L Calcium panel 07/15/21 07/15/21 Range/Units 07:57 11:56 Calcium 8.7 9.1 (8.7-10.3) mg/dL Albumin 3.3 L (3.5-5.0) g/dL Pituitary panel 07/15/21 07/15/21 07/15/21 Range/Units 07:57 11:56 11:56 Sodium 134 L 131 L (135-145) mmol/L Potassium 4.9 4.7 (3.5-5.5) mmol/L Chloride 100 101 (96-109) mmol/L Carbon Dioxide 22.9 20 L (20.0-27.5) mmol/L BUN 14.3 16 (9.0-27.0) mg/dL Creatinine 0.9 0.74 (0.6-1.5) mg/dL Glucose 101 112 H (70-110) mg/dL Calcium 8.7 9.1 (8.7-10.3) mg/dL TSH 0.722 (0.465-4.680) mIU/L Adrenal panel 07/15/21 07/15/21 Range/Units 07:57 11:56 Sodium 134 L 131 L (135-145) mmol/L Potassium 4.9 4.7 (3.5-5.5) mmol/L Chloride 100 101 (96-109) mmol/L Carbon Dioxide 22.9 20 L (20.0-27.5) mmol/L BUN 14.3 16 (9.0-27.0) mg/dL Creatinine 0.9 0.74 (0.6-1.5) mg/dL Glucose 101 112 H (70-110) mg/dL Calcium 8.7 9.1 (8.7-10.3) mg/dL Total Bilirubin 0.5 (0.2-1.3) mg/dL AST 31 (17-59) U/L ALT 22 (4-49) U/L Alkaline Phosphatase 73 (38-126) U/L Total Protein 5.9 L (6.3-8.2) g/dL Albumin 3.3 L (3.5-5.0) g/dL
[2021-07-15] MEDS: ACETAMINOPHEN TAB 325 MG TAB PO PRN (20:34)
[2021-07-15] MEDS: PANTOPRAZOLE 40 MG/10 ML VIAL IVP SCH (20:34)
[2021-07-16] MEDS: ACETAMINOPHEN TAB 325 MG TAB PO PRN (02:49)
[2021-07-16] MEDS ORDERED: METOPROLOL TARTRATE 25 MG TAB PO STA (03:30)
[2021-07-16 08:06] LABS: HCT 39.5 % (39.0-53.0); HGB 12.9 gm/dL (13.0-17.5); MCH 28.4 pg (25.0-35.0); MCHC 32.5 g/dL (31.0-37.0); MCV 87.4 fL (80.0-100.0); Mean Platelet Volume 6.4; Platelet Count 493 k/uL (150-450); RBC 4.52 m/uL (4.30-5.90); RDW 13.2 % (11.5-15.5); WBC 12.6 k/uL (3.8-10.6)
[2021-07-16 08:16] LABS: African American GFR (CKD) >90 (>60 ml/min/1.73 sqM); Anion Gap 5 mmol/L; Blood Urea Nitrogen 12 mg/dL (9-20); Calcium 8.5 mg/dL (8.4-10.2); Carbon Dioxide 24 mmol/L (22-30); Chloride 102 mmol/L (98-107); Glucose 94 mg/dL (74-99); Non-African American GFR(CKD) >90 (>60 ml/min/1.73 sqM); Potassium 4.5 mmol/L (3.5-5.1); Sodium 131 mmol/L (137-145)
[2021-07-16] MEDS: lisinopriL 10 MG TAB PO SCH (08:41)
[2021-07-16] MEDS: PANTOPRAZOLE 40 MG/10 ML VIAL IVP SCH (08:41)
[2021-07-16] MEDS: DESVENLAFAXINE SUCCINATE 50 MG TAB.ER.24H PO SCH (08:41)
[2021-07-16 08:49] VITALS: RESP 16; TEMP 98.8
--- NOTE | 2021-07-16 11:17 | P.DS ---
Providers Date of admission: 07/14/21 16:54 Attending physician: Brit Monroe Consults: 07/14/21 16:44 Consult Physician Routine Consulting Provider: Woodrow Wells Consult Reason/Comments: retroperitoneal mass Do you want consulting provider notified?: Yes, Notify in am 07/15/21 10:49 Consult Physician Routine Consulting Provider: Clifford Jo Consult Reason/Comments: upper Gi scope Do you want consulting provider notified?: Yes Primary care physician: Fe Aguirre [facility] [place] Course: Patient is pleasant 60-year-old male came in with complaints of dark stool about 3 episodes yesterday and some coffee-ground emesis patient was also having right upper quadrant abdominal pain this abdominal pain is associated with food. Patient had an abdominal CT which showed her to be terminal lymphadenopathy consistent with lymphoma because of which oncology was consulted and patient was admitted patient hemoglobin yesterday was around 13 and came down to 12 patient is bit hyponatremic does have leukocytosis which probably 60 secondary to lymphoma. Patient denied any fever chills patient doesn't have any evidence of sepsis at this time. Patient had a fecal occult blood testing which was negative. Patient was also having nausea with the abdominal pain which is predominantly in the right upper quadrant sharp in nature nonradiating. Whenever he has this pain is moderate in severity. 07/16/2021 Patient will undergo upper GI endoscopy today patient's immobility remains stable on admission was 13.2 and presently 12.9. Because of dark stools and concerns of GI bleed patient is undergoing upper GI endoscopy today. Patient had a biopsy of renal mass and retroperitoneal mass possibility of lymphoma patient's serum sodium remains low at 131. PHYSICAL EXAMINATION: GENERAL: The patient is alert and oriented x3, not in any acute distress. Well developed, well nourished. HEENT: Pupils are round and equally reacting to light. EOMI. No scleral icterus. No conjunctival pallor. Normocephalic, atraumatic. No pharyngeal erythema. No thyromegaly. CARDIOVASCULAR: S1 and S2 present. No murmurs, rubs, or gallops. PULMONARY: Chest is clear to auscultation, no wheezing or crackles. ABDOMEN: Soft, nontender, nondistended, normoactive bowel sounds. No palpable organomegaly. MUSCULOSKELETAL: No joint swelling or deformity. EXTREMITIES: No cyanosis, clubbing, or pedal edema. NEUROLOGICAL: Gross neurological examination did not reveal any focal deficits. SKIN: No rashes. Assessment and plan -Dark stools which resolved at this time I cannot rule out the upper GI bleed will undergo upper GI endoscopy if no significant abnormality patient will be discharged today -Possibility of acute blood loss anemia from possible upper GI bleed -Right upper quadrant abdominal pain rule out cholelithiasis ABDOMEN WAS NEGATIVE -Leukocytosis secondary to lymphoma -Incidental finding of a properitoneal lymphadenopathy biopsy was done and patient will follow-up with oncology as an outpatient -Tachycardia: TSH within normal limits, patient will be discharged on low-dose of metoprolol -Hyperlipidemia -Hypertension Patient Condition at Discharge: Serious Plan - Discharge Summary New Discharge Prescriptions: New Metoprolol Succinate [[place] Sprinkle] 25 mg PO DAILY #30 cap Pantoprazole Sodium [Protonix] 40 mg PO DAILY #15 tab Continue Desvenlafaxine Succinate [Pristiq ER] 50 mg PO DAILY lisinopriL 10 mg PO DAILY Discontinued metroNIDAZOLE [Flagyl] 500 mg PO Q8H Ciprofloxacin HCl [Cipro] 500 mg PO Q12H Discharge Medication List Desvenlafaxine Succinate [Pristiq ER] 50 mg PO DAILY 07/14/21 [History] lisinopriL 10 mg PO DAILY 07/14/21 [History] Metoprolol Succinate [[place] Sprinkle] 25 mg PO DAILY #30 cap 07/16/21 [Rx] Pantoprazole Sodium [Protonix] 40 mg PO DAILY #15 tab 07/16/21 [Rx] Follow up Appointment(s)/Referral(s): Woodrow Wells MD [STAFF PHYSICIAN] - 2 Weeks Fe Concepcion III, MD [Primary Care Provider] - 3 Days
[2021-07-16] MEDS ORDERED: PROPOFOL 10 MG/ML 20 ML VIAL IV ONE (12:12)
[2021-07-16] MEDS ORDERED: IV FLUID CONTINUATION 1,000 ML IV ONE (12:13)
--- NOTE | 2021-07-16 12:34 | P.OP ---
Date of Procedure: 07/16/21 Preoperative Diagnosis: Gastritis Postoperative Diagnosis: Antral gastritis Esophagitis Procedure(s) Performed: EGD Anesthesia: MAC Surgeon: Clifford Jo Pathology: other (, antrum, esophagus) Condition: stable Disposition: PACU Description of Procedure: The patient's placed on the endoscopy table in the lateral position. He received IV sedation. The gastroscope placed oropharynx passed in the esophagus into the stomach. Scope was then placed through the pylorus. The first and second portion of the duodenum appeared normal. Scope was then brought back the antrum was mildly inflamed. Biopsies performed. Scope was then retroflexed and the remainder of the stomach appeared normal. The GE junction was at 38 cm. The distal esophagus appeared inflamed and a biopsies performed. Proximal esophagus. Normal. Scope withdrawn for patient.
--- NOTE | 2021-07-16 13:06 | P.PN ---
Subjective Progress Note Date: 07/16/21 Principal diagnosis: Renal mass Dr. kelly saw pt, no acute c/o, he is having EGD today, pt is s/p renal biopsy with no c/o. Objective - Vital Signs Vital signs: Vital Signs Temp 98.8 F 07/16/21 08:00 Pulse 106 H 07/16/21 08:00 Resp 16 07/16/21 08:00 BP 145/85 07/16/21 08:00 Pulse Ox 96 07/16/21 08:00 Intake & Output 07/15/21 07/16/21 07/16/21 18:59 06:59 18:59 Weight 81.647 kg Other: # Voids 2 - Constitutional General appearance: Present: average body habitus, cooperative, no acute distress - EENT Eyes: Present: anicteric sclerae, EOMI ENT: Present: hearing grossly normal - Respiratory Respiratory: bilateral: CTA - Cardiovascular Heart sounds: normal: S1, S2 - Gastrointestinal General gastrointestinal: Present: normal bowel sounds, soft - Neurologic Neurologic: Present: CNII-XII intact - Musculoskeletal Musculoskeletal: Present: strength equal bilaterally - Psychiatric Psychiatric: Present: A&O x's 3, appropriate affect, intact judgment & insight - Labs CBC & Chem 7: 07/16/21 07:40 07/16/21 07:40 Labs: Abnormal Lab Results - Last 24 Hours (Table) 07/15/21 07/15/21 07/15/21 Range/Units 07:57 07:57 11:56 WBC 12.64 H (4.50-10.00) X 10*3/uL RBC 4.38 L (4.40-5.60) X 10*6/uL Hgb 12.1 L (13.0-17.0) g/dL Hct 37.3 L (39.6-50.0) % Plt Count 470 H (140-440) X 10*3/uL MPV 9.0 L (9.5-12.2) fL Immature Gran # 0.05 H (0.00-0.04) X 10*3/uL Neutrophils # 9.91 H (1.80-7.70) X 10*3/uL Lymphocytes # 0.73 L (0.90-5.00) X 10*3/uL Monocytes # 1.84 H (0.20-1.00) X 10*3/uL Sodium 134 L 131 L (135-145) mmol/L Carbon Dioxide 20 L (22-30) mmol/L Glucose 112 H (74-99) mg/dL Total Protein 5.9 L (6.3-8.2) g/dL Albumin 3.3 L (3.5-5.0) g/dL 07/16/21 07/16/21 Range/Units 07:40 07:40 WBC 12.6 H (4.50-10.00) X 10*3/uL RBC (4.40-5.60) X 10*6/uL Hgb 12.9 L (13.0-17.0) g/dL Hct (39.6-50.0) % Plt Count 493 H (140-440) X 10*3/uL MPV (9.5-12.2) fL Immature Gran # (0.00-0.04) X 10*3/uL Neutrophils # (1.80-7.70) X 10*3/uL Lymphocytes # (0.90-5.00) X 10*3/uL Monocytes # (0.20-1.00) X 10*3/uL Sodium 131 L (135-145) mmol/L Carbon Dioxide (22-30) mmol/L Glucose (74-99) mg/dL Total Protein (6.3-8.2) g/dL Albumin (3.5-5.0) g/dL Microbiology - Last 24 Hours (Table) 07/15/21 12:20 Stool Culture - Preliminary Stool - Imaging and Cardiology CT scan - chest: report reviewed Assessment and Plan (1) Renal mass, right Narrative/Plan: S/P biopsy, path pending CT chest neg for mets F/U Dr. Priscilla chase for results and plan Current Visit: Yes Status: Acute Priority: High Code(s): N28.89 - OTHER SPECIFIED DISORDERS OF KIDNEY AND URETER SNOMED Code(s): 954727393 Plan: Doctor attests: I performed a history and physical examination of this patient, developed impression and plan of care, discussed with dictator. I agree with dictators note, documented as a scribe.
[2021-07-16 14:42] VITALS: BP 124/78; PULSE 109
== END 2021-07-16 15:10 | disposition home or self-care (01) ==
LOC: EC 10:33 → 5NMEDONC 16:54 → 6NMEDSUR 19:59
PROVIDERS: ADMIT Hospitalist; ATTEND Hospitalist
DX: K29.50 Unspecified chronic gastritis without bleeding (principal); C85.99 Non-Hodgkin lymphoma, unspecified, extranodal and solid organ sites; K20.90 Esophagitis, unspecified without bleeding; R19.5 Other fecal abnormalities; R00.0 Tachycardia, unspecified; R50.9 Fever, unspecified; D72.829 Elevated white blood cell count, unspecified; N28.89 Other specified disorders of kidney and ureter; N40.0 Benign prostatic hyperplasia without lower urinary tract symptoms; E87.1 Hypo-osmolality and hyponatremia; E78.5 Hyperlipidemia, unspecified; I10 Essential (primary) hypertension; K57.92 Diverticulitis of intestine, part unspecified, without perforation or abscess without bleeding; F32.A Depression, unspecified; E66.9 Obesity, unspecified; Z68.30 Body mass index [BMI] 30.0-30.9, adult; Z20.822 Contact with and (suspected) exposure to COVID-19; Z87.01 Personal history of pneumonia (recurrent); Z79.899 Other long term (current) drug therapy; Z88.0 Allergy status to penicillin; Z71.9 Counseling, unspecified; Z80.3 Family history of malignant neoplasm of breast; Z82.49 Family history of ischemic heart disease and other diseases of the circulatory system
CPT/HCPCS: 96361 ×3; 96360; 99285; 36415; 86900; 86901; 87338; 88305 ×2; 80053 ×2; 80048 ×2; 84443; 83605; 83690; 84484; 85025 ×2; 85027; 85610; 85730; 86850; 82272; 88342; 87324; 88341; 87045; 87046; 87635; 76705; 50200; 77012; 71260; 74177; 43239; G0378 ×4; J2704; C9113 ×2; J1170; Q9967 ×2

== ENCOUNTER 2021-07-30 08:23 | Day surgery (SDC) | payer BC ==
[2021-07-25 17:03] VITALS: BMI 30.9
[~2021-07-30 08:23] MED LIST: ACETAMINOPHEN TAB 500 MG TAB PO PRN; HEPARIN SODIUM,PORCINE/PF 5,000 UNIT/0.5 ML SYRINGE SQ PRN; LACTATED RINGERS 1,000 ML IV SCH; LIDOCAINE 1% (10MG/ML) FOR IV START INTRADERMA PRN; ONDANSETRON 4 MG/2 ML VIAL IVP PRN; Pre Op ABX Message 1 EACH MISC MISCELLANE ONE; fentaNYL (PF) 50 MCG/ML 2 ML AMP IV PRN
[2021-07-30] MEDS ORDERED: MIDAZOLAM 2 MG/2 ML VIAL IVP ONE (09:05)
[2021-07-30] MEDS ORDERED: DEXAMETHASONE SOD PHOSPHATE 4 MG/ML 1 ML VIAL IVP ONE (09:10)
[2021-07-30] MEDS ORDERED: METOPROLOL TARTRATE 5 MG/5 ML VIAL IVP ONE (09:25)
[2021-07-30 09:29] VITALS: RESP 16
--- NOTE | 2021-07-30 10:08 | P.GSHP ---
History of Present Illness H&P Date: 07/30/21 Chief Complaint: Lymphoma This is a 60-year-old male who recently diagnosed lymphoma. Patient presents today for Port-A-Cath placement Past Medical History Past Medical History: Cancer, Hyperlipidemia, Hypertension, Pneumonia Additional Past Medical History / Comment(s): Diverticululitis, recent admit to [facility] for tachycardia and blood in stool, recent mass x [address] kidney and abdominal aorta-dx non hodgkins lymphoma 06/2021), recent gastritis, History of Any Multi-Drug Resistant Organisms: None Reported Past Surgical History: Tonsillectomy Additional Past Surgical History / Comment(s): EGD, colonoscopy x 3, Past Anesthesia/Blood Transfusion Reactions: No Reported Reaction Smoking Status: Never smoker - Past Family History Mother Family Medical History: Cancer Additional Family Medical History / Comment(s): breast cancer Father Family Medical History: AFIB, Myocardial Infarction ([place]) Additional Family Medical History / Comment(s): CABG Sister(s) Family Medical History: Cancer Additional Family Medical History / Comment(s): breast cancer Medications and Allergies Home Medications Medication Instructions Recorded Confirmed Type Desvenlafaxine Succinate [Pristiq 50 mg PO DAILY 07/14/21 07/30/21 History ER] lisinopriL 10 mg PO DAILY 07/14/21 07/30/21 History Pantoprazole Sodium [Protonix] 40 mg PO DAILY #15 tab 07/16/21 07/30/21 Rx Acetaminophen [Tylenol Extra 500 mg PO DIRECTED PRN 07/25/21 07/30/21 History Strength] Cholecalciferol [Vitamin D3 (25 50 mcg PO DAILY 07/25/21 07/30/21 History Mcg = 1000 Iu)] Metoprolol Succinate [Toprol XL] 25 mg PO W/SUPPER 07/25/21 07/30/21 History Allergies Allergy/AdvReac Type Severity Reaction Status Date / Time Penicillins Allergy Rash/Hives Verified 07/30/21 08:38 Surgical - Exam Vital Signs Temp Pulse Resp BP Pulse Ox 98.2 F 135 H 18 137/82 94 L 07/30/21 08:42 07/30/21 08:42 07/30/21 08:42 07/30/21 08:42 07/30/21 08:42 - General well developed, well nourished, no distress - Eyes PERRL - ENT normal pinna - Neck no masses - Respiratory normal expansion - Cardiovascular Rhythm: regular - Abdomen Abdomen: soft, non tender Hernia: incisional Assessment and Plan Assessment: Recent diagnosis of lymphoma. We'll perform Port-A-Cath placement
[2021-07-30] MEDS ORDERED: PROPOFOL 10 MG/ML 20 ML VIAL IV ONE (10:29)
[2021-07-30] MEDS ORDERED: ESMOLOL 100 MG/10 ML VIAL ONE (10:29)
[2021-07-30] MEDS ORDERED: PHENYLEPHRINE-0.9% NACL SYG 1,000 MCG/10 ML SYRINGE ONE (10:29)
[2021-07-30] MEDS ORDERED: LIDOCAINE 1% INJ 10MG/ML (20 ML MDV) ONE (10:29)
[2021-07-30] MEDS ORDERED: fentaNYL (PF) 50 MCG/ML 2 ML AMP ONE (10:29)
[2021-07-30] MEDS ORDERED: HEPARIN SODIUM,PORCINE 100 UNIT/ML 5 ML VIAL IV ONE (10:42)
[2021-07-30] MEDS ORDERED: IOPAMIDOL-370 50ML BTL MISCELLANE ONE (10:42)
[2021-07-30] MEDS ORDERED: LIDOCAINE 1% INJ 10MG/ML (20 ML MDV) SQ ONE (10:50)
[2021-07-30] MEDS ORDERED: SODIUM CHLORIDE 0.9% 50 ML with ceFAZolin 2,000 MG IV ONE ×2 (10:54)
--- NOTE | 2021-07-30 11:27 | P.OP ---
Date of Procedure: 07/30/21 Preoperative Diagnosis: Lymphoma Postoperative Diagnosis: Lymphoma Procedure(s) Performed: Insertion of right subclavian Port-A-Cath Anesthesia: MAGDA Surgeon: Clifford Jo Estimated Blood Loss (ml): 5 Pathology: none sent Condition: stable Disposition: PACU Description of Procedure: MPROCEDURE: The patient was placed on the operating table in the supine position. She received MAC anesthetic. The [right] chest was prepped and draped in the usual sterile fashion. The skin underneath the right clavicle was anesthetized with 1% Xylocaine and using Seldinger technique, the right subclavian vein was cannulized. The wire was placed through the needle and positioned under fluoroscopy. Next, the needle was removed and the port site was anesthetized with 1% Xylocaine. Skin was incised with #15 blade and port pocket was made using blunt and sharp dissection. Following this the catheter was attached to the sport and the port was flushed. The port was positioned into the pocket site and was secured with 3-0 Vicryl suture. The catheter was then brought out through the wire site and then the dilator sheath was placed over the wire and the dilator and the wire were removed. The catheter was placed through the sheath and the sheath was removed. The port was flushed with hep-lock solution. Skin was closed with interrupted 3-0 Vicryl sutures. Steri-Strips were applied. The patient tolerated the procedure well. The patient was sent to recovery room for chest x-ray after the procedure.
[2021-07-30 11:44] VITALS: TEMP 97.7
--- NOTE | 2021-07-30 11:59 | XR ---
EXAMINATION TYPE: XR chest 1V DATE OF EXAM: 07/30/2021 COMPARISON: NONE HISTORY: Mediport placement TECHNIQUE: Single frontal view of the chest is obtained. FINDINGS: Right-sided Mediport seen with the tip overlying the SVC and no sizable pneumothorax. Hear t size normal. There is right perihilar, right upper lobe, left upper lobe, left lower lobe areas of subsegmental consolidation. Limited inspiration. No overt failure or pneumothorax. No sizable pleural effusion. IMPRESSION: 1. Mediport appears in good position with no evidence of pneumothorax. 2. Bilateral areas of subsegmental atelectasis or early infiltrate.
--- NOTE | 2021-07-30 12:03 | FL ---
EXAMINATION TYPE: FL guided central line placemt HISTORY: Fluoroscopy time Impression: 1. Fluoroscopy support provided to the referring physician.
[2021-07-30 12:44] VITALS: BP 110/76; PULSE 115
== END 2021-07-30 12:51 | disposition home or self-care (01) ==
LOC: OR 08:23
PROVIDERS: ATTEND Surgery
DX: C85.90 Non-Hodgkin lymphoma, unspecified, unspecified site (principal); I10 Essential (primary) hypertension; E78.5 Hyperlipidemia, unspecified; Z82.49 Family history of ischemic heart disease and other diseases of the circulatory system
CPT/HCPCS: 36556; 77001; 71045; C1788; J2250; J1642; J1100; J2405; J0690; J2001; J3010; J2370; J2704; J1644

== ENCOUNTER → 2021-08-01 | Outpatient (CLI) | payer BC ==
--- NOTE | 2021-08-02 11:01 | ECHOF ---
Referral Reason:Z01.818 MEASUREMENTS -------- HEIGHT: 162.6 cm WEIGHT: 81.6 kg BP: RVIDd: 2.7 cm (< 3.3) IVSd: 1.0 cm (0.6 - 1.1) LVIDd: 4.2 cm (3.9 - 5.3) LVPWd: 1.1 cm (0.6 - 1.1) IVSs: 1.5 cm LVIDs: 3.2 cm LVPWs: 1.1 cm Ao Diam: 3.0 cm (2.0 - 3.7) AV Cusp: 2.3 cm (1.5 - 2.6) RAP: 5.00 mmHg RVSP: 17.13 mmHg FINDINGS -------- Resting tachycardia (HR>100bpm). This was a technically good study. LV size, wall thickness and systolic function are normal, with an EF greater than 55%. The left darin tricular size is normal. The right ventricle is normal in size. The left atrial size is normal. The right atrial size is normal. The aortic valve is trileaflet, and appears structurally normal. No aortic stenosis or regurgitation. Mild mitral regurgitation is present. Mild tricuspid regurgitation present. Right ventricular systolic pressure is normal at < 35 mmHg. The pulmonic valve was not well visualized. Echo free space indicative of a pericardial fat pad. CONCLUSIONS -------- 1. LV size, wall thickness and systolic function are normal, with an EF greater than 55%. 2. The left ventricular size is normal. 3. The right ventricle is normal in size. 4. The left atrial size is normal. 5. The right atrial size is normal. 6. The aortic valve is trileaflet, and appears structurally normal. No aortic stenosis or regurgitati on. 7. Mild mitral regurgitation is present. 8. Mild tricuspid regurgitation present. 9. The pulmonic valve was not well visualized. 10. Echo free space indicative of a pericardial fat pad. PROGRAMMABLE LOGIC CONTROLLER ASSEMBLER: Tyra Lopez RDCS
== END | disposition home or self-care (01) ==
LOC: RADECHMAIN 13:36
PROVIDERS: ATTEND Internal Medicine Hematology & Oncology
DX: Z01.818 Encounter for other preprocedural examination (principal); I08.1 Rheumatic disorders of both mitral and tricuspid valves
CPT/HCPCS: 93306

== ENCOUNTER 2021-08-02 09:42 | Inpatient (IN) | payer BC ==
[2021-08-02] MEDS ORDERED: ACETAMINOPHEN TAB 325 MG TAB PO STA (11:15)
--- NOTE | 2021-08-02 11:51 | ED ---
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 Wells due to tachycardia and fever. Patient reports he is feeling well other than mild fatigue and chills yesterday, as well as some shortness of breath at his oncologist which has since resolved. He denies chest pain, palpitations, abdominal pain, urinary symptoms, and bilateral leg pain. Patient is covid-19 vaccinated and boosted. No known covid exposure or sick contacts. Patient has not started therapy for lymphoma yet but visited his oncologist today to learn about various chemotherapy treatment. - Related Data Home Medications Medication Instructions Recorded Confirmed Desvenlafaxine Succinate [Pristiq 50 mg PO DAILY 07/14/21 08/02/21 ER] lisinopriL 10 mg PO DAILY 07/14/21 08/02/21 Acetaminophen [Tylenol Extra 500 mg PO Q6H PRN 07/25/21 08/02/21 Strength] Cholecalciferol [Vitamin D3 (25 50 mcg PO DAILY 07/25/21 08/02/21 Mcg = 1000 Iu)] Metoprolol Succinate [Toprol XL] 25 mg PO PC-SUPPER 07/25/21 08/02/21 Previous Rx's Medication Instructions Recorded Pantoprazole Sodium [Protonix] 40 mg PO DAILY #15 tab 07/16/21 Allergies Allergy/AdvReac Type Severity Reaction Status Date / Time Penicillins Allergy Rash/Hives Verified 08/02/21 12:38 Review of Systems ROS Statement: Those systems with pertinent positive or pertinent negative responses have been documented in the HPI. ROS Other: All systems not noted in ROS Statement are negative. Past Medical History Past Medical History: Cancer, Hyperlipidemia, Hypertension, Pneumonia Additional Past Medical History / Comment(s): Diverticululitis, recent admit to [facility] for tachycardia and blood in stool, recent mass x [address] rt kidney and abdominal aorta-dx non hodgkins lymphoma 06/2021), recent gastritis, History of Any Multi-Drug Resistant Organisms: None Reported Past Surgical History: Tonsillectomy Additional Past Surgical History / Comment(s): EGD, colonoscopy x 3, Past Anesthesia/Blood Transfusion Reactions: No Reported Reaction Past Psychological History: Anxiety, Depression Smoking Status: Never smoker Past Alcohol Use History: Occasional Past Drug Use History: None Reported - Past Family History Mother Family Medical History: Cancer Additional Family Medical History / Comment(s): breast cancer Father Family Medical History: AFIB, Myocardial Infarction ([place]) Additional Family Medical History / Comment(s): CABG Sister(s) Family Medical History: Cancer Additional Family Medical History / Comment(s): breast cancer General Exam Limitations: no limitations General appearance: alert, in no apparent distress Head exam: Present: atraumatic, normocephalic, normal inspection Eye exam: Present: normal appearance Neck exam: Present: normal inspection Respiratory exam: Present: normal lung sounds bilaterally. Absent: respiratory distress, wheezes, rales, rhonchi, stridor Cardiovascular Exam: Present: normal rhythm, tachycardia, normal heart sounds. Absent: regular rate GI/Abdominal exam: Present: soft. Absent: distended, tenderness, guarding, rebound, rigid Extremities exam: Absent: pedal edema, calf tenderness Neurological exam: Present: alert, oriented X3, CN II-XII intact Psychiatric exam: Present: normal affect, normal mood Skin exam: Present: warm, dry, intact, normal color. Absent: rash Course Vital Signs 08/02/21 08/02/21 09:49 12:11 Temperature 100.3 F H 99.2 F Pulse Rate 138 H 95 Respiratory 24 16 Rate Blood Pressure 139/78 140/91 O2 Sat by Pulse 95 Oximetry EKG Findings - EKG Comments: EKG Findings:: EKG taken at 9:56. Sinus tachycardia, indeterminate axis. Ventricular rate 131. CA interval 135. QRS duration 77. QT/QTC 283/360 Medical Decision Making - Medical Decision Making This is a 60-year-old male sent in by oncologist Dr. Wells for tachycardia and fever. Thorough history and physical exam is performed. EKG reveals sinus tachycardia. CBC is unremarkable with no leukocytosis. Sodium is low at 130. Urinalysis is clear. Chest x-ray reveals left basilar infiltrate or atelectasis, similar to prior scan. Patient is covid-19 negative. Upon reevaluation patient is resting comfortably in bed. Patient given saline bolus for low sodium. D-dimer is borderline at 0.60. On reevaluation, patient looks well with no SOB. Pulse is 96, sPO2 is 95% RA, and patient is afebrile. D-dimer likely borderline due to age and lymphoma. Case discussed with physician assistant infant toddler teacher Adrianna Flood oncology office. PE is unlikely from a clinical standpoint. She did recommend admission for fever monitoring. Discussed case with Dr. Monroe. Patient will be admitted for further observation, evaluation, and treatment. I did prescribe Levofloxacin for pote ntial pneumonia coverage. Blood culture and urine culture are pending. Patient agreeable to admission. - Lab Data Result diagrams: 08/02/21 11:54 08/02/21 11:54 Lab Results 08/02/21 08/02/21 08/02/21 Range/Units 11:54 11:54 11:54 WBC 9.3 (3.8-10.6) k/uL RBC 4.33 (4.30-5.90) m/uL Hgb 12.3 L (13.0-17.5) gm/dL Hct 36.0 L (39.0-53.0) % MCV 83.2 (80.0-100.0) fL MCH 28.3 (25.0-35.0) pg MCHC 34.1 (31.0-37.0) g/dL RDW 13.0 (11.5-15.5) % Plt Count 480 H (150-450) k/uL MPV 6.8 Neutrophils % 75 % Lymphocytes % 8 % Monocytes % 12 % Eosinophils % 0 % Basophils % 1 % Neutrophils # 7.0 (1.3-7.7) k/uL Lymphocytes # 0.8 L (1.0-4.8) k/uL Monocytes # 1.1 H (0-1.0) k/uL Eosinophils # 0.0 (0-0.7) k/uL Basophils # 0.1 (0-0.2) k/uL PT 11.1 (9.0-12.0) sec INR 1.0 (<1.2) APTT 22.8 (22.0-30.0) sec D-Dimer 0.60 H (<0.60) mg/L FEU Sodium 130 L (137-145) mmol/L Potassium 4.4 (3.5-5.1) mmol/L Chloride 99 (98-107) mmol/L Carbon Dioxide 24 (22-30) mmol/L Anion Gap 7 mmol/L BUN 21 H (9-20) mg/dL Creatinine 0.85 (0.66-1.25) mg/dL Est GFR (CKD-EPI)AfAm >90 (>60 ml/min/1.73 sqM) Est GFR (CKD-EPI)NonAf >90 (>60 ml/min/1.73 sqM) Glucose 93 (74-99) mg/dL Plasma Lactic Acid Cheng (0.7-2.0) mmol/L Calcium 9.0 (8.4-10.2) mg/dL Magnesium 1.8 (1.6-2.3) mg/dL Total Bilirubin 0.8 (0.2-1.3) mg/dL AST 45 (17-59) U/L ALT 52 H (4-49) U/L Alkaline Phosphatase 191 H (38-126) U/L Total Protein 6.2 L (6.3-8.2) g/dL Albumin 3.2 L (3.5-5.0) g/dL Urine Color Urine Appearance (Clear) Urine pH (5.0-8.0) Ur Specific [place] (1.001-1.035) Urine Protein (Negative) Urine Glucose (UA) (Negative) Urine Ketones (Negative) Urine Blood (Negative) Urine Nitrite (Negative) Urine Bilirubin (Negative) Urine Urobilinogen (<2.0) mg/dL Ur Leukocyte Esterase (Negative) Coronavirus (PCR) (Not Detectd) 08/02/21 08/02/21 08/02/21 Range/Units 11:54 11:54 12:25 WBC (3.8-10.6) k/uL RBC (4.30-5.90) m/uL Hgb (13.0-17.5) gm/dL Hct (39.0-53.0) % MCV (80.0-100.0) fL MCH (25.0-35.0) pg MCHC (31.0-37.0) g/dL RDW (11.5-15.5) % Plt Count (150-450) k/uL MPV Neutrophils % % Lymphocytes % % Monocytes % % Eosinophils % % Basophils % % Neutrophils # (1.3-7.7) k/uL Lymphocytes # (1.0-4.8) k/uL Monocytes # (0-1.0) k/uL Eosinophils # (0-0.7) k/uL Basophils # (0-0.2) k/uL PT (9.0-12.0) sec INR (<1.2) APTT (22.0-30.0) sec D-Dimer (<0.60) mg/L FEU Sodium (137-145) mmol/L Potassium (3.5-5.1) mmol/L Chloride (98-107) mmol/L Carbon Dioxide (22-30) mmol/L Anion Gap mmol/L BUN (9-20) mg/dL Creatinine (0.66-1.25) mg/dL Est GFR (CKD-EPI)AfAm (>60 ml/min/1.73 sqM) Est GFR (CKD-EPI)NonAf (>60 ml/min/1.73 sqM) Glucose (74-99) mg/dL Plasma Lactic Acid Cheng 1.1 (0.7-2.0) mmol/L Calcium (8.4-10.2) mg/dL Magnesium (1.6-2.3) mg/dL Total Bilirubin (0.2-1.3) mg/dL AST (17-59) U/L ALT (4-49) U/L Alkaline Phosphatase (38-126) U/L Total Protein (6.3-8.2) g/dL Albumin (3.5-5.0) g/dL Urine Color Yellow Urine Appearance Clear (Clear) Urine pH 6.5 (5.0-8.0) Ur Specific [place] 1.019 (1.001-1.035) Urine Protein Trace H (Negative) Urine Glucose (UA) Negative (Negative) Urine Ketones 2+ H (Negative) Urine Blood Negative (Negative) Urine Nitrite Negative (Negative) Urine Bilirubin Negative (Negative) Urine Urobilinogen <2.0 (<2.0) mg/dL Ur Leukocyte Esterase Negative (Negative) Coronavirus (PCR) Not Detected (Not Detectd) Disposition Clinical Impression: Fever, Tachycardia Disposition: ADMITTED IP TO THIS [facility] Condition: Good Referrals: Fe Concepcion III, MD [Primary Care Provider] - 1-2 days Time of Disposition: 14:18
[2021-08-02 12:22] LABS: ALT 52 U/L (4-49); AST 45 U/L (17-59); African American GFR (CKD) >90 (>60 ml/min/1.73 sqM); Albumin 3.2 g/dL (3.5-5.0); Alkaline Phosphatase 191 U/L (38-126); Anion Gap 7 mmol/L; Blood Urea Nitrogen 21 mg/dL (9-20); Carbon Dioxide 24 mmol/L (22-30); Chloride 99 mmol/L (98-107); Glucose 93 mg/dL (74-99); Magnesium 1.8 mg/dL (1.6-2.3); Non-African American GFR(CKD) >90 (>60 ml/min/1.73 sqM); Potassium 4.4 mmol/L (3.5-5.1); Sodium 130 mmol/L (137-145); Total Bilirubin 0.8 mg/dL (0.2-1.3); Total Protein 6.2 g/dL (6.3-8.2)
[2021-08-02 12:27] LABS: Basophils # (A) 0.1 k/uL (0-0.2); Basophils % (A) 1 %; Eosinophils % (A) 0 %; HGB 12.3 gm/dL (13.0-17.5); Lymphocytes # (A) 0.8 k/uL (1.0-4.8); Lymphocytes % (A) 8 %; MCH 28.3 pg (25.0-35.0); MCHC 34.1 g/dL (31.0-37.0); MCV 83.2 fL (80.0-100.0); Mean Platelet Volume 6.8; Monocytes # (A) 1.1 k/uL (0-1.0); Monocytes % (A) 12 %; Neutrophils % (A) 75 %; Platelet Count 480 k/uL (150-450); RBC 4.33 m/uL (4.30-5.90); WBC 9.3 k/uL (3.8-10.6)
--- NOTE | 2021-08-02 12:32 | XR ---
EXAMINATION TYPE: XR chest 2V DATE OF EXAM: 08/02/2021 COMPARISON: 07/30/2021 TECHNIQUE: PA and lateral views submitted. HISTORY: Dysrhythmia FINDINGS: Limited inspiration. Heart size normal. Subsegmental changes left lower lobe. No overt failure pneumo thorax. Mediport catheter seen. IMPRESSION: 1. Left basilar infiltrate or atelectasis. Findings similar prior exam.
[2021-08-02] MEDS ORDERED: SODIUM CHLORIDE 0.9% 1,000 ML IV STA (12:33)
[2021-08-02 12:39] LABS: Partial Thromboplastin Time 22.8 sec (22.0-30.0); Prothrombin Time 11.1 sec (9.0-12.0)
[2021-08-02 12:41] LABS: Appearance,Urine Clear (Clear); Bilirubin,Urine Negative (Negative); Blood,Urine Negative (Negative); Color,Urine Yellow; Glucose,Urine (UA) Negative (Negative); Ketones,Urine 2+ (Negative); Leukocyte Esterase,Urine Negative (Negative); Nitrite,Urine Negative (Negative); PH, Urine 6.5 (5.0-8.0); Protein,Urine Trace (Negative); Specific Gravity,Urine 1.019 (1.001-1.035); Urobilinogen,Urine <2.0 mg/dL (<2.0)
[2021-08-02] MEDS ORDERED: LEVOFLOXACIN 750MG-D5W PMX 750 MG in DEXTROSE/WATER 1 150ML.BAG IVPB STA (14:10)
[2021-08-02] MEDS ORDERED: PNEUMONIA PROTOCOL UTILIZED 1 EACH MISC PO PRN (14:10)
[2021-08-02 16:36] LABS: Uric Acid 4.8 mg/dL (3.5-8.5)
--- NOTE | 2021-08-02 17:25 | HP ---
HISTORY AND PHYSICAL CHIEF COMPLAINTS: Fever and tachycardia. HISTORY OF PRESENT ILLNESS: This 60-year-old gentleman with a past medical history of hypertension, hyperlipidemia, history of pneumonia, history of diverticulitis, being followed by Dr. Concepcion in the outpatient setting, is also being evaluated for non-Hodgkin's lymphoma abdominal mass and renal masses. Today the patient had a fever up to 101 degrees and tachycardia with a heart rate of 130. Patient was sent to [facility] and is being monitored closely at this time. There is no history of headache, loss of consciousness. No chest pain, palpitations at this time. PAST MEDICAL HISTORY: History of recently diagnosed lymphoma, hypertension, hyperlipidemia, history of pneumonia, history of diverticulitis. HOME MEDICATIONS: Home medications include Tylenol, lisinopril, Protonix, Toprol-XL, Pristiq and vitamin D3. ALLERGIES: PENICILLIN. FAMILY HISTORY: History of breast cancer in the family. SOCIAL HISTORY: No history of smoking. No history of alcohol. REVIEW OF SYSTEMS: ENT: No diminished hearing. No diminished vision. Otherwise, the 14-point review of systems is negative except as mentioned above. PHYSICAL EXAM: Alert, oriented x3. The pulse is 138, blood pressure 139/70, respiration 24, temperature 100.3, pulse ox 98% on room air. HEENT: Conjunctivae normal. NECK: No jugular venous distention. CARDIOVASCULAR: S1, S2 muffled. RESPIRATION: Breath sounds diminished at the bases. ABDOMEN: Soft, nontender. No mass palpable. LEGS: No edema. No swelling. NERVOUS SYSTEM: Higher functions as mentioned earlier. Moves all 4 limbs. No focal motor or sensory deficit. LYMPHATICS: No lymph node palpable in neck, axillae or groin. SKIN: No ulcer, rash, bleeding. JOINTS: No active deforming arthropathy. LABS: WBC 9.2, hemoglobin 12.3 and monocytes 1.1, D-dimer 0.6 and sodium is 130. ASSESSMENT: 1. Fever, tachycardia for evaluation. Rule out viral illness. 2. Non-Hodgkin's lymphoma. 3. Hyponatremia. 4. Hypertension. 5. Hyperlipidemia. 6. History of pneumonia. 7. Anxiety, depression. RECOMMENDATIONS AND DISCUSSION: In this 60-year-old gentleman who presented with multiple medical issues, at this time we will recommend to continue the current medications, continue symptomatic treatment. Otherwise, I would recommend obtaining cultures. COVID test is negative. Recommend flu testing, RSV as well as cultures. Prognosis guarded. Further recommendations to follow. Repeat labs will be ordered. A copy of this dictation is being forwarded to Dr. Concepcion, who is the primary physician, as well as Dr. Wells, who is following the patient in the outpatient setting. NOY / SINDYN: [id number] / MTDD
--- NOTE | 2021-08-02 17:37 | CT ---
EXAMINATION TYPE: CT angio chest CT DLP: 383.8 mGycm, Automated exposure control for dose reduction was used. DATE OF EXAM: 08/02/2021 5:10 PM COMPARISON: Chest radiograph from same day. Multiple CTs of the chest with most recent on 06/25/2021. CLINICAL INDICATION:Male, 60 years old with history of pe/pneumonia; Fever. History of nonhogkins lym phoma. TECHNIQUE/CONTRAST: CTA scan of the thorax is performed with IV Contrast, patient injected with 100ml mL of Isovue 370, p ulmonary embolism protocol. MIP images are created and reviewed. FINDINGS: Pulmonary Artery: There is no evidence for a filling defect within the pulmonary vasculature to sugge st acute pulmonary embolism. The pulmonary artery is of normal size. Lungs/Pleura: No evidence of focal consolidation, pleural effusion or pneumothorax. Atelectasis looney es are seen within the left lung base. Airway: Large airways are patent. Heart: Within normal limits for size. Vasculature: No evidence of aortic aneurysm. Mediastinum: No gross evidence of adenopathy. Musculoskeletal: No acute osseous abnormalities Soft Tissues: Right chest Ubmalb-b-Fior with distal tip projecting within the superior vena cava and near the confluence with the left brachiocephalic vein. Lower neck: No significant findings. Upper Abdomen: Upper abdomen lymph nodes measuring up to 10 mm in the gastrohepatic region and retrop eritoneal lymph node measuring up to 15 mm in short axis. Difficult to fully evaluate and compare to prior CT chest [id number] IMPRESSION: 1. No evidence of pulmonary embolism. No evidence for acute infectious process to explain the patient 's symptomology. 2. Right chest [id number] with distal tip in appropriate position within the superior vena cava. 3. Abdominal partially evaluated/visualized enlarged lymph nodes consistent with provided history.
[2021-08-02] MEDS ORDERED: METOPROLOL SUCCINATE (ER) 25 MG TAB.ER.24H PO SCH (18:30)
[2021-08-02] MEDS ORDERED: DILTIAZEM DRIP BOLUS FROM BAG 1 MG SOLN IV ONE (19:16)
[2021-08-02] MEDS: DILTIAZEM 125 MG in SODIUM CHLORIDE 0.9% 100 ML IV SCH (19:47)
--- NOTE | 2021-08-02 20:46 | P.CONS ---
History of Present Illness - Reason for Consult Consult date: 08/02/21 Lymphoma Requesting physician: Lsia Escobar - Chief Complaint Fever - History of Present Illness Mr Santana is a pleasant white male, initially seen in consult at [facility] on 07/15/21. The patient had developed pain in the right upper abdomen that had started a few days prior to admission. He had sought attention with his PCP, and was started on antibiotic for possible cholecystitis. He actually had improvement in the right upper quadrant symptoms but then developed black stools. He therefore came into the emergency room. He had a CT of the abdomen and pelvis that revealed a large retroperitoneal mass anterior to the aorta about 9.3 x 7 x 8 cm which appeared to be adherent to the anterior aorta. This was also encasing the origin of the inferior mesenteric artery. Additional enlarged lymph nodes were noted at the level of the aorta and inferior to the vena cava. There was also a large mass that seemed to be arising from the lower pole of the right kidney and extending inferiorly to the cecum. On examination the patient had no palpable adenopathy. He had a CT of the chest on that was negative. He had an EGD, that showed no significant findings other than mild antral inflammation and mild chronic gastritis and chronic eso phagitis on pathology. He also had biopsy of the right pararenal mass with IR. The patient was subsequently discharged. Preliminary pathology on the pararenal mass was diffuse large B-cell lymphoma. He presented to the office today for a chemotherapy teach and plan for lymphoma however he had 101.9 fever on arrival. Therefore he was sent to emergency for further work-up. I spoke to ER Lisa LEON who has drawn Blood cultures (another order placed in hopes to draw from port too since freshly placed) Chest xray negative, and Urinalysis. They have started levaquin. With high fever likely not secondary to lymphoma, (low grade maybe) however patient will need full roland cultures and await 24 hours afebrile of untreated prior to discharge. I have placed additional work-up for Influenza and RSV and Blood culture POrt. Review of Systems All systems: negative Constitutional: Reports as per HPI Past Medical History Past Medical History: Cancer, Hyperlipidemia, Hypertension, Pneumonia Additional Past Medical History / Comment(s): Diverticululitis, recent admit to [facility] for tachycardia and blood in stool, recent mass x [address] kidney and abdominal aorta-dx non hodgkins lymphoma 06/2021), recent gastritis, History of Any Multi-Drug Resistant Organisms: None Reported Past Surgical History: Tonsillectomy Additional Past Surgical History / Comment(s): EGD, colonoscopy x 3, Past Anesthesia/Blood Transfusion Reactions: No Reported Reaction Past Psychological History: Anxiety, Depression Smoking Status: Never smoker Past Alcohol Use History: Occasional Past Drug Use History: None Reported - Past Family History Mother Family Medical History: Cancer Additional Family Medical History / Comment(s): breast cancer Father Family Medical History: AFIB, Myocardial Infarction ([place]) Additional Family Medical History / Comment(s): CABG Sister(s) Family Medical History: Cancer Additional Family Medical History / Comment(s): breast cancer Medications and Allergies Home Medications Medication Instructions Recorded Confirmed Type Desvenlafaxine Succinate [Pristiq 50 mg PO DAILY 07/14/21 08/02/21 History ER] lisinopriL 10 mg PO DAILY 07/14/21 08/02/21 History Pantoprazole Sodium [Protonix] 40 mg PO DAILY #15 tab 07/16/21 08/02/21 Rx Acetaminophen [Tylenol Extra 500 mg PO Q6H PRN 07/25/21 08/02/21 History Strength] Cholecalciferol [Vitamin D3 (25 50 mcg PO DAILY 07/25/21 08/02/21 History Mcg = 1000 Iu)] Metoprolol Succinate [Toprol XL] 25 mg PO PC-SUPPER 07/25/21 08/02/21 History Allergies Allergy/AdvReac Type Severity Reaction Status Date / Time Penicillins Allergy Rash/Hives Verified 08/02/21 12:38 Physical Exam Vitals: Vital Signs Temp Pulse Resp BP Pulse Ox 08/02/21 12:11 99.2 F 95 16 140/91 95 08/02/21 09:49 100.3 F H 138 H 24 139/78 Intake and Output 08/01/21 08/02/21 08/02/21 22:59 06:59 14:59 Other: Weight 79.379 kg - Constitutional General appearance: cooperative, no acute distress - EENT Eyes: EOMI ENT: NA/AT - Neck Neck: normal ROM - Respiratory Respiratory: bilateral: CTA - Cardiovascular Rhythm: regularly irregular - Gastrointestinal General gastrointestinal: soft - Integumentary Integumentary: pale - Neurologic Neurologic: CNII-XII intact - Musculoskeletal Musculoskeletal: generalized weakness, strength equal bilaterally - Psychiatric Psychiatric: A&O x's 3, appropriate affect, intact judgment & insight Results CBC & Chem 7: 08/02/21 11:54 08/02/21 11:54 Labs: Abnormal Lab Results - Last 24 Hours (Table) 08/02/21 08/02/21 08/02/21 Range/Units 11:54 11:54 11:54 Hgb 12.3 L (13.0-17.5) gm/dL Hct 36.0 L (39.0-53.0) % Plt Count 480 H (150-450) k/uL Lymphocytes # 0.8 L (1.0-4.8) k/uL Monocytes # 1.1 H (0-1.0) k/uL D-Dimer 0.60 H (<0.60) mg/L FEU Sodium 130 L (137-145) mmol/L BUN 21 H (9-20) mg/dL ALT 52 H (4-49) U/L Alkaline Phosphatase 191 H (38-126) U/L Total Protein 6.2 L (6.3-8.2) g/dL Albumin 3.2 L (3.5-5.0) g/dL Urine Protein (Negative) Urine Ketones (Negative) 08/02/21 Range/Units 12:25 Hgb (13.0-17.5) gm/dL Hct (39.0-53.0) % Plt Count (150-450) k/uL Lymphocytes # (1.0-4.8) k/uL Monocytes # (0-1.0) k/uL D-Dimer (<0.60) mg/L FEU Sodium (137-145) mmol/L BUN (9-20) mg/dL ALT (4-49) U/L Alkaline Phosphatase (38-126) U/L Total Protein (6.3-8.2) g/dL Albumin (3.5-5.0) g/dL Urine Protein Trace H (Negative) Urine Ketones 2+ H (Negative) Chest x-ray: report reviewed Assessment and Plan (1) Non-Hodgkin lymphoma Narrative/Plan: Plan to begin treatment with RCHOP next week baseline Uric acid, LDH, Phos, Mag Current Visit: Yes Status: Acute Code(s): C85.90 - NON-HODGKIN LYMPHOMA, UNSPECIFIED, UNSPECIFIED SITE SNOMED Code(s): 739556489 (2) Fever Narrative/Plan: Roland Cultures, from mediport as well as peripheral Influenza, Covid and viral panel to be drawn Full infectious work-up Check IgG level for opportunity of IVIG Current Visit: Yes Status: Acute Code(s): R50.9 - FEVER, UNSPECIFIED SNOMED Code(s): 607634443 (3) Tachycardia Current Visit: Yes Status: Acute Code(s): R00.0 - TACHYCARDIA, UNSPECIFIED SNOMED Code(s): 2016390 Plan: CTA negative for PE Await for cultures Discussed with primary team Physician Attest: I have completed the full history and physical and agree with above dictation, dictated as ascribe
--- NOTE | 2021-08-02 20:57 | P.EN ---
A- team: Indication: Afib with RVR Arrived on Scene to find: Patient tachycardic and somewhat anxious. Reviewed the chart and discussed the case with the RN. The patient was admitted for fever and tachycardia with a recent diagnosis of lymphoma. The patient was noted to have tachycardia on the monitor. He reported feeling fatigued but was otherwise denied any additional complaints. Denied chest pain, SOB, palpitations, nausea, vomiting. EKG revealed afib with RVR @ 189 bpm. The patient denied any prior history of Afib and denies being on anticoagulation. Vital signs reviewed: BP 112/58, P 189, SpO2 94% on RA Patient seen and examined at bedside. General: [non toxic], [no distress], [appears at stated age] Derm: [warm], [dry] Head: [atraumatic], [normocephalic], [symmetric] Eyes: [EOMI], [no lid lag], [anicteric sclera] Mouth: [no lip lesion], [mucus membranes moist] Cardiovascular: Irregularly irregular, [no murmur], [positive posterior tibial pulse bilateral], Lungs: [CTA bilateral], [no rhonchi, no rales] , [no accessory muscle use] Abdominal: [soft], [ nontender to palpation], [no guarding], [no appreciable organomegaly] Ext: [no gross muscle atrophy], [no edema], [no contractures] Neuro: [ CN II-XI grossly intact], [no focal neuro deficits] Psych: [Alert], [oriented], [appropriate affect] Assessment: Afib with RVR Plan: Cardizem 5 mg IVP with Cardizem infusion 5 mg/hr ordered C/w Cardiac monitoring Lovenox 80 mg SQ once ordered. Defer remaining anticoagulation to primary service Disposition: Transfer to Notified: Primary notified by RN A Total of 35 minutes of critical care time was spent on the complex care of this patient.
[2021-08-02] MEDS ORDERED: ENOXAPARIN 80 MG/0.8 ML SYRINGE SQ STA (21:29)
[2021-08-03] MEDS: DILTIAZEM 125 MG in SODIUM CHLORIDE 0.9% 100 ML IV SCH (03:48)
[2021-08-03] MEDS: PANTOPRAZOLE 40 MG TABLET PO SCH (06:46)
[2021-08-03] MEDS ORDERED: lisinopriL 10 MG TAB PO SCH (09:00)
[2021-08-03 09:12] LABS: Basophils # (A) 0.1 k/uL (0-0.2); Basophils % (A) 1 %; Eosinophils % (A) 0 %; HCT 36.3 % (39.0-53.0); Lymphocytes # (A) 1.1 k/uL (1.0-4.8); Lymphocytes % (A) 9 %; MCH 27.9 pg (25.0-35.0); MCV 84.8 fL (80.0-100.0); Mean Platelet Volume 6.9; Monocytes # (A) 1.3 k/uL (0-1.0); Monocytes % (A) 11 %; Neutrophils % (A) 75 %; Platelet Count 505 k/uL (150-450); RBC 4.29 m/uL (4.30-5.90); RDW 13.2 % (11.5-15.5)
[2021-08-03 09:16] LABS: ALT 35 U/L (4-49); AST 30 U/L (17-59); African American GFR (CKD) >90 (>60 ml/min/1.73 sqM); Albumin 2.9 g/dL (3.5-5.0); Alkaline Phosphatase 160 U/L (38-126); Anion Gap 7 mmol/L; Blood Urea Nitrogen 16 mg/dL (9-20); Calcium 8.8 mg/dL (8.4-10.2); Carbon Dioxide 21 mmol/L (22-30); Chloride 103 mmol/L (98-107); Glucose 97 mg/dL (74-99); Non-African American GFR(CKD) >90 (>60 ml/min/1.73 sqM); Potassium 4.2 mmol/L (3.5-5.1); Sodium 131 mmol/L (137-145); Total Bilirubin 0.6 mg/dL (0.2-1.3); Total Protein 5.8 g/dL (6.3-8.2)
[2021-08-03] MEDS: DESVENLAFAXINE SUCCINATE 50 MG TAB.ER.24H PO SCH (09:49)
[2021-08-03] MEDS: CHOLECALCIFEROL 25 MCG (1000 IU) TABLET PO SCH (09:49)
[2021-08-03] MEDS: ACETAMINOPHEN TAB 325 MG TAB PO PRN ×2 (10:18→21:13)
[2021-08-03] MEDS ORDERED: APIXABAN 5 MG TAB PO SCH (13:45)
--- NOTE | 2021-08-03 14:34 | PN ---
PROGRESS NOTE DATE OF SERVICE: 08/03/2021 CHIEF COMPLAINT: Fever. Leo is seen today in followup. He continues to have a low-grade fever. Also he developed tachycardia and he was found to have atrial fibrillation with rapid ventricular response. He denies any sore throat, cough, shortness of breath. No nausea or vomiting. No urinary symptoms and no diarrhea. CURRENT MEDICATIONS: Reviewed in his electronic medical record. PHYSICAL EXAMINATION: He is alert, oriented x3. He does not appear to be in acute distress. VITAL SIGNS: Temperature 100.0, pulse 112, blood pressure 120/70, respirations 16, pulse ox 99% on room air. HEENT: Normocephalic, atraumatic. No icterus. NECK: Supple. CHEST: Equal expansion bilaterally. Lungs are clear to auscultation. Heart is regular rate and rhythm. ABDOMEN: Soft. No tenderness. Extremities revealed no edema. LABORATORY DATA: WBC 12.0, hemoglobin 12.0, hematocrit is 36.3, platelets are 505. Sodium 131, potassium 4.2, chloride is 21. BUN is 16, creatinine 0.84. AST 30, ALT 35, alkaline phosphatase is 160. IMPRESSION: 1. Fever. There is no obvious clinical sign of infection. However, this could be related to recent diagnosis of diffuse large B-cell lymphoma; however, awaiting blood culture results. He recently had a port placement and the cultures were obtained from the port and from peripheral blood as well. Again it is very possible that his fever could be related to his underlying lymphoma. 2. 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 He has a large retroperitoneal mass and kidney involvement. 3. Atrial fibrillation with rapid ventricular response. RECOMMENDATIONS: 1. Continue current treatment for atrial fibrillation. Anticoagulation could be used with either DOAC, as appropriate. 2. Awaiting final blood culture results. 3. If cultures are negative and his atrial fibrillation is controlled, then treatment should be started as soon as possible; and given his renal involvement, consideration for HEAD OF HOUSEKEEPING prophylaxis with intrathecal methotrexate should be given. The above was discussed in detail with the patient. I have answered all of his questions. MMODL / IJN: [id number] /
--- NOTE | 2021-08-03 17:32 | P.CRDCN ---
History of Present Illness History of present illness: HISTORY OF PRESENTING ILLNESS This is a pleasant 60-year-old with past medical history significant for lymphoma, hypertension, GERD. Patient was diagnosed with lymphoma approximately one month ago and has been undergoing workup. He states he has been feeling not well for the last 2 months with decreased energy level and fatigue and eventually diagnosed with lymphoma under the care of Dr. Wells. He states he was going to a class on chemotherapy and then started feeling fatigued and feverish was found have a fever and therefore recommended to come to emergency department. Patient was found to be in A. fib with RVR and heart rates went up to 140-150s and therefore placed on Cardizem drip. He denied any chest pain or pressure or shortness breath. He converted to sinus rhythm earlier today and admits she has not really feel any different. He denies any chest pain or pressure. No shortness breath. CT PE protocol was performed which showed no PE. He denies any diabetes mellitus type 2, heart failure, TIA or stroke or vascular disease. He had a prior out patient echo which showed preserved EF without significant valvular disease. Since converted into sinus rhythm he has had sinus tachycardia at a heart rate of 110-120. REVIEW OF SYSTEMS At the time of my exam: CONSTITUTIONAL: +Fever, nochills. CARDIOVASCULAR: Denies chest pain, shortness of breath, orthopnea, PND or palpitations. RESPIRATORY: Denies cough. GASTROINTESTINAL: Denies abdominal pain, diarrhea, constipation, nausea or vomiting. MUSCULOSKELETAL: Denies myalgias. NEUROLOGIC: Denies numbness, tingling or weakness. ENDOCRINE: Denies fatigue, weight change, polydipsia or polyurina. GENITOURINARY: Denies burning, hematuria or urgency with micturation. HEMATOLOGIC: Denies history of anemia or bleeding. PHYSICAL EXAMINATION Vital signs reviewed. CONSTITUTIONAL: No apparent distress. HEENT: Head is normocephalic. Pupils are equal, round. Sclerae anicteric. Mucous membranes of the mouth are moist. No JVD. No carotid bruit. CHEST EXAMINATION: Lungs are clear to auscultation. No chest wall tenderness is noted on palpation or with deep breathing. HEART EXAMINATION: Regular rate and rhythm. S1, S2 heard. No murmurs, gallops or rub. ABDOMEN: Soft, nontender. Positive bowel sounds. EXTREMITIES: 2+ peripheral pulses, no lower extremity edema and no calf tenderness. NEUROLOGIC EXAMINATION: Patient is awake, alert and oriented x3. ASSESSMENT 1. Paroxysmal atrial fibrillation, currently sinus rhythm 2. Sinus tachycardia likely reactive 3. Lymphoma 4. Hypertension 5. Fever PLAN Patient is back in sinus rhythm and was predominantly asymptomatic from the A. fib with RVR. We will increase his Toprol from 25-50 mg however for better rate control if he does go back and do it and additionally stop his lisinopril for further rate control allowance. His CHADSVASC is only 1 for hypertension and therefore no anticoagulation especially given possible chemotherapy and bleeding risk, anemia. Prior echo reveals preserved EF and no significant heart failure symptoms. CT PE protocol showed no PE. Patient stable for discharge home from a cardiology standpoint. Please call with any questions. Past Medical History Past Medical History: Cancer, Hyperlipidemia, Hypertension, Pneumonia Additional Past Medical History / Comment(s): Diverticululitis, recent admit to [facility] for tachycardia and blood in stool, recent mass x [address] rt kidney and abdominal aorta-dx non hodgkins lymphoma 06/2021), recent gastritis, History of Any Multi-Drug Resistant Organisms: None Reported Past Surgical History: Tonsillectomy Additional Past Surgical History / Comment(s): EGD, colonoscopy x 3, finger reattatchment Past Anesthesia/Blood Transfusion Reactions: No Reported Reaction Past Psychological History: Anxiety, Depression Smoking Status: Never smoker Past Alcohol Use History: Occasional Past Drug Use History: None Reported - Past Family History Mother Family Medical History: Cancer Additional Family Medical History / Comment(s): breast cancer Father Family Medical History: AFIB, Myocardial Infarction ([place]) Additional Family Medical History / Comment(s): CABG Sister(s) Family Medical History: Cancer Additional Family Medical History / Comment(s): breast cancer Medications and Allergies Home Medications Medication Instructions Recorded Confirmed Type Desvenlafaxine Succinate [Pristiq 50 mg PO DAILY 07/14/21 08/02/21 History ER] lisinopriL 10 mg PO DAILY 07/14/21 08/02/21 History Pantoprazole Sodium [Protonix] 40 mg PO DAILY #15 tab 07/16/21 08/02/21 Rx Acetaminophen [Tylenol Extra 500 mg PO Q6H PRN 07/25/21 08/02/21 History Strength] Cholecalciferol [Vitamin D3 (25 50 mcg PO DAILY 07/25/21 08/02/21 History Mcg = 1000 Iu)] Metoprolol Succinate [Toprol XL] 25 mg PO PC-SUPPER 07/25/21 08/02/21 History Allergies Allergy/AdvReac Type Severity Reaction Status Date / Time Penicillins Allergy Rash/Hives Verified 08/02/21 12:38 Physical Exam Vitals: Vital Signs Temp Pulse Pulse Resp BP BP Pulse Ox 08/03/21 12:06 112 H 16 120/70 99 08/03/21 08:00 100.0 F H 112 H 16 129/73 94 L 08/03/21 02:00 120 H 16 116/66 95 08/02/21 21:00 98.8 F 131 H 16 112/62 93 L 08/02/21 20:00 143 H 115/63 08/02/21 19:47 163 H 92/62 08/02/21 19:05 98.9 F 189 H 20 112/58 94 L 08/02/21 18:51 91 Intake and Output 08/03/21 08/03/21 08/03/21 06:59 14:59 22:59 Intake Total 76 0 Output Total 900 Balance -824 0 Intake: Intake, IV Titration 76 Amount Diltiazem 125 mg In 76 Sodium Chloride 0.9% 100 ml @ 5 MG/HR 5 mls/hr IV .Q24H [facility] Rx#:[id number] Oral 0 Output: Urine 900 Other: # Voids 2 Weight 79.379 kg Results 08/03/21 08:37 08/03/21 08:37 Cardiac Enzymes 08/03/21 Range/Units 08:37 AST 30 (17-59) U/L CBC 08/03/21 Range/Units 08:37 WBC 12.0 H (3.8-10.6) k/uL RBC 4.29 L (4.30-5.90) m/uL Hgb 12.0 L (13.0-17.5) gm/dL Hct 36.3 L (39.0-53.0) % Plt Count 505 H (150-450) k/uL Comprehensive Metabolic Panel 08/03/21 Range/Units 08:37 Sodium 131 L (137-145) mmol/L Potassium 4.2 (3.5-5.1) mmol/L Chloride 103 (98-107) mmol/L Carbon Dioxide 21 L (22-30) mmol/L BUN 16 (9-20) mg/dL Creatinine 0.84 (0.66-1.25) mg/dL Glucose 97 (74-99) mg/dL Calcium 8.8 (8.4-10.2) mg/dL AST 30 (17-59) U/L ALT 35 (4-49) U/L Alkaline Phosphatase 160 H (38-126) U/L Total Protein 5.8 L (6.3-8.2) g/dL Albumin 2.9 L (3.5-5.0) g/dL Current Medications Generic Name Dose Route Start Last Admin Trade Name Freq PRN Reason Stop Dose Admin Acetaminophen 650 mg 08/02/21 14:03 08/03/21 10:18 Acetaminophen Tab 325 Mg Tab PO 650 mg Q6HR PRN Administration Mild Pain or Fever > 100.5 Allopurinol 300 mg 08/04/21 09:00 Allopurinol 300 Mg Tab PO DAILY BAILEY Aspirin 325 mg 08/04/21 09:00 Aspirin 325 Mg Tab PO DAILY BAILEY Cholecalciferol 50 mcg 08/03/21 09:00 08/03/21 09:49 Cholecalciferol 25 Mcg (1000 Iu) Tablet PO 50 mcg DAILY BAILEY Administration Desvenlafaxine Succinate 50 mg 08/03/21 09:00 08/03/21 09:49 Desvenlafaxine Succinate 50 Mg Tab.Er.24h PO 50 mg DAILY BAILEY Administration Diltiazem HCl 125 mg/ Sodium 125 mls @ 5 mls/hr 08/02/21 19:30 08/03/21 03:48 Chloride IV 10 mg/hr .Q24H BAILEY 10 mls/hr Administration 5 MG/HR Metoprolol Succinate 50 mg 08/03/21 18:30 Metoprolol Succinate (Er) 25 Mg Tab.Er.24h PO PC-SUPPER BAILEY Miscellaneous Information 1 each 08/02/21 14:10 Pneumonia Protocol Utilized 1 Each Misc PO ONCE PRN Per Protocol Pantoprazole Sodium 40 mg 08/03/21 07:30 08/03/21 06:46 Pantoprazole 40 Mg Tablet PO 40 mg DAILY@0730 BAILEY Administration Intake and Output 08/03/21 08/03/21 08/03/21 06:59 14:59 22:59 Intake Total 76 0 Output Total 900 Balance -824 0 Intake: Intake, IV Titration 76 Amount Diltiazem 125 mg In 76 Sodium Chloride 0.9% 100 ml @ 5 MG/HR 5 mls/hr IV .Q24H [facility] Rx#:[id number] Oral 0 Output: Urine 900 Other: # Voids 2 Weight 79.379 kg Patient Weight 08/04/21 06:59 Weight 79.379 kg 08/03/21 08:37 08/03/21 08:37
[2021-08-03] MEDS: METOPROLOL SUCCINATE (ER) 50 MG TAB.ER.24H PO SCH (18:16)
--- NOTE | 2021-08-03 18:19 | PN ---
PROGRESS NOTE DATE OF SERVICE: 08/03/2021 This 60-year-old gentleman admitted with tachycardia had developed atrial fibrillation with a fast ventricular rate. The patient is on Cardizem drip. No chest pain. Palpitations present. PHYSICAL EXAMINATION: Pulse is 112, irregular. Blood pressure 120/72, respirations 16, temperature 100 degrees, pulse ox 99% on 2 L. HEENT: Conjunctivae normal. CARDIOVASCULAR: S1, S2 irregular. RESPIRATION: Clear to auscultation. ABDOMEN: Soft, nontender. NERVOUS SYSTEM: No focal deficit. LABS: WBC 12, hemoglobin 12. Sodium 131. ASSESSMENT: 1. Fever, tachycardia; rule out sepsis or viral illness. 2. Atrial fibrillation with fast ventricular rate. 3. Non-Hodgkin lymphoma. RECOMMENDATIONS AND DISCUSSION: I recommend to continue current medications, continue with the monitoring, symptomatic treatment. Continue with Cardizem. Cultures. Infectious disease evaluation. Repeat labs. Further recommendations to follow. Prognosis guarded. MMODL / IJN: [id number] /
[2021-08-03 19:16] LABS: T4, Free (Free Thyroxine) 1.82 ng/dL (0.78-2.19)
[2021-08-04] MEDS: PANTOPRAZOLE 40 MG TABLET PO SCH (06:14)
[2021-08-04] MEDS: CHOLECALCIFEROL 25 MCG (1000 IU) TABLET PO SCH (08:19)
[2021-08-04] MEDS: ASPIRIN 325 MG TAB PO SCH (08:19)
[2021-08-04] MEDS: DESVENLAFAXINE SUCCINATE 50 MG TAB.ER.24H PO SCH (08:19)
[2021-08-04] MEDS: allopurinoL 300 MG TAB PO SCH (08:20)
[2021-08-04] MEDS: METOPROLOL SUCCINATE (ER) 50 MG TAB.ER.24H PO SCH (16:43)
--- NOTE | 2021-08-04 16:52 | PN ---
PROGRESS NOTE DATE OF SERVICE: 08/04/2021 CHIEF COMPLAINT: Tired. Leo is seen today in followup. He feels a little tired, but overall he feels well. He had a spike of fever last night, but today he has been afebrile. He denies any sore throat, cough, shortness of breath. No nausea or vomiting. No diarrhea. No burning sensation with urination. No melena, hematochezia, hematuria or hemoptysis. CURRENT MEDICATION: Reviewed in his electronic medical record. PHYSICAL EXAMINATION: He is alert and x oriented x3. He does not appear to be in distress. VITAL SIGNS: Temperature 98.2. He had a temperature max last night of 102.2. Pulse is 137, respiration 18, blood pressure 147/84, pulse ox 95 % on room air. HEENT: Normocephalic, atraumatic. No icterus. NECK: Supple. CHEST: Equal expansion bilaterally. Lungs are clear. Heart is tachycardic but regular. ABDOMEN: Soft. No tenderness. Extremities revealed no edema. SKIN: No significant bruises, ecchymosis or petechiae. LABORATORY DATA: WBC of 12.0, hemoglobin 12.0, hematocrit 36.3, platelets 505. Sodium 131, potassium 4.1, chloride 103. BUN is 16, creatinine 0.84. IMPRESSION: 1. Recent diagnosis of diffuse large B-cell lymphoma, activated type, but not double- hit. He has a very large retroperitoneal mass and kidney involvement. 2. Paroxysmal atrial fibrillation with rapid ventricular response. He is currently in sinus tachycardia. He was evaluated by sales agent protective service, who felt there is no need for anticoagulation. 3. Fever without any obvious clinical sign of infection, and his cultures have remained negative so far. This is very likely related to his underlying lymphoma. RECOMMENDATIONS: 1. Continue current medical care to control his heart rate. 2. The patient was started on allopurinol as a preventative for tumor lysis syndrome upon initiation of his treatment for diffuse large B-cell lymphoma. 3. Also, given his bulk of disease and renal involvement, SPECIAL EDUCATION CLASSROOM AIDE prophylaxis with intrathecal methotrexate should be considered. 4. If cultures remain negative, the treatment with R-CHOP will be initiated as soon as possible. The above was discussed with the patient, and I answered all of his questions to his satisfaction. MMODL / IJN: [id number] /
--- NOTE | 2021-08-04 17:43 | PN ---
PROGRESS NOTE DATE OF SERVICE: 08/04/2021 This 60-year-old gentleman with a recent medical history of non-Hodgkin lymphoma is admitted with a fever. The patient also had paroxysmal atrial fibrillation. No chest pain or palpitations noted. PHYSICAL EXAMINATION: Pulse 132, regular. Blood pressure 141/88, respiration 18, temperature 99 degrees. HEENT: Conjunctivae normal. CARDIOVASCULAR: S1, S2 irregular. RESPIRATION: Breath sounds diminished at the bases. A few scattered rhonchi. ABDOMEN: Soft, nontender. NERVOUS SYSTEM: No focal deficit. LABS: WBC 12, hemoglobin is 12. Cultures are negative so far. ASSESSMENT: 1. Atrial fibrillation with fast ventricular rate. 2. Non-Hodgkin's lymphoma. 3. Fever, tachycardia; rule out sepsis. RECOMMENDATIONS AND DISCUSSION: I recommend to continue current medications, continue with the monitoring, symptomatic treatment. Follow the cultures. Closely follow with Cardiology. Continue beta blockers. MMODL / IJN: [id number] /
[2021-08-04] MEDS ORDERED: METOPROLOL TARTRATE 50 MG TAB PO SCH ×2 (19:00)
[2021-08-05] MEDS: METOPROLOL TARTRATE 50 MG TAB PO SCH ×3 (00:35→14:31)
[2021-08-05 04:57] VITALS: RESP 18
[2021-08-05] MEDS: PANTOPRAZOLE 40 MG TABLET PO SCH (06:34)
[2021-08-05] MEDS: ASPIRIN 325 MG TAB PO SCH (07:55)
[2021-08-05] MEDS: allopurinoL 300 MG TAB PO SCH (07:55)
[2021-08-05] MEDS: CHOLECALCIFEROL 25 MCG (1000 IU) TABLET PO SCH (07:55)
[2021-08-05] MEDS: DESVENLAFAXINE SUCCINATE 50 MG TAB.ER.24H PO SCH (07:56)
[2021-08-05 11:02] VITALS: BP 127/81; PULSE 99; TEMP 98.4
--- NOTE | 2021-08-05 11:33 | P.PN ---
Subjective Progress Note Date: 08/05/21 Principal diagnosis: fever, DLBCL In f/u today pt has no c/o, denies palpitations, chest pain, SOB. He is anxious to go home Objective - Vital Signs Vital signs: Vital Signs Temp 98.4 F 08/05/21 11:01 Pulse 99 08/05/21 11:01 Resp 18 08/05/21 11:01 BP 127/81 08/05/21 11:01 Pulse Ox 96 08/05/21 11:01 Intake & Output 08/04/21 08/05/21 08/05/21 18:59 06:59 18:59 Intake Total 1336 480 240 Balance 1336 480 240 Intake: Oral 1336 480 240 Other: Voiding Method Urinal # Voids 2 3 - Constitutional General appearance: Present: average body habitus, cooperative - EENT Eyes: Present: anicteric sclerae, EOMI ENT: Present: hearing grossly normal - Respiratory Respiratory: bilateral: CTA - Cardiovascular Heart sounds: normal: S1, S2 - Peripheral edema leg Peripheral Edema: bilateral: None - Gastrointestinal General gastrointestinal: Present: normal bowel sounds, soft - Neurologic Neurologic: Present: CNII-XII intact - Musculoskeletal Musculoskeletal: Present: strength equal bilaterally - Psychiatric Psychiatric: Present: A&O x's 3, appropriate affect, intact judgment & insight - Labs CBC & Chem 7: 08/03/21 08:37 08/03/21 08:37 Labs: Microbiology - Last 24 Hours (Table) 08/02/21 16:00 Blood Culture - Preliminary Blood No Growth after 48 hours 08/02/21 11:54 Blood Culture - Preliminary Blood No Growth after 48 hours 08/02/21 11:50 Blood Culture - Preliminary Blood No Growth after 48 hours - Imaging and Cardiology CT scan - chest: report reviewed Assessment and Plan (1) Fever Narrative/Plan: Pancultures negative. Suspect r/t lymphoma. Recommendation is to start treatment soon. Current Visit: Yes Status: Acute Priority: High Code(s): R50.9 - FEVER, UNSPECIFIED SNOMED Code(s): 136443730 (2) Atrial fibrillation with RVR Narrative/Plan: Cardiology notes reviewed. No recs for anticoagulation at this time. Medications adjusted. F/U planned. CTA neg for PE Current Visit: Yes Status: Acute Priority: High Code(s): I48.91 - UNSPECIFIED ATRIAL FIBRILLATION SNOMED Code(s): 237582799578286 (3) Non-Hodgkin lymphoma Narrative/Plan: Plan to start treatment soon. Pt has port. Current Visit: Yes Status: Acute Priority: High Code(s): C85.90 - NON- HODGKIN LYMPHOMA, UNSPECIFIED, UNSPECIFIED SITE SNOMED Code(s): 622456690 Plan: Will discuss with Attending WELDER EXPERIMENTAL about possible discharge today-PET scheduled for tomorrow, need to start treatment. Pending IM recs and plan. Ig level >600, no IVIG Doctor attests: I performed a history and physical examination of this patient, developed impression and plan of care, discussed with dictator. I agree with dictators note, documented as a scribe.
--- NOTE | 2021-08-05 23:52 | P.CONS ---
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 and this patient has received Mediport to the right chest wall about a week ago however has not been started on chemotherapy patient was admitted to the hospital about 4 days ago for evaluation of mild fatigue and chills and concerning for a fever patient on presentation to the hospital did have fever 100.3 degree form height and the patient did spike a fever of 102 on 08/03/2021 and the fever of 100.8 last night, patient did have a normal white count initially was slightly with white count on the patient did have normal kidney function liver enzymes are mildly elevated patient did have a negative COVID as well as influenza PCR urine was negative he did have blood cultures obtained from the port as well as peripherally those been negative and the patient seem to have done well without any antibiotic therapy infectious disease was consulted last night for further evaluation of the fever. On today's evaluation that is 08/05/2021 the patient overall feeling better to be denies having any headache or URI symptoms, denies having any chest pain or shortness of breath or cough no nausea no vomiting no abdominal pain did have some diarrhea with no blood or mucus in the stool and denies having any pain to his Mediport site Review of system: CONSTITUTIONAL: Positive for weakness along with the fever. EYES: No complaint. ENT: No complaint. RESPIRATORY: No complaint. CARDIOVASCULAR: No complaint. GENITOURINARY: No complaint. GASTROINTESTINAL: No complaint. MUSCULOSKELETAL: No complaint. INTEGUMENTARY: No complaint. PSYCHOLOGIC: No complaint. ENDOCRINE: No complaint. NEUROLOGIC: No complaint. Past medical history : Reviewed, documented below Past surgical history : Reviewed, documented below Social history: Reviewed, documented below Medications: Reviewed, as documented below EXAMINATION: Vital sigans= Reviewed and documented below GENERAL DESCRIPTION: Middle-aged male lying in bed, no distress. No tachypnea or accessory muscle of respiration use. HEENT: Shows Pallor , no scleral icterus. Oral mucous membrane is dry. NECK: Trachea central, no thyromegaly. LUNGS: Unlabored breathing. Clear to auscultation anteriorly. No wheeze or crackle. HEART: S1, S2, regular rate and rhythm. ABDOMEN: Soft, no tenderness , guarding or rigidity EXTREMITIES: No edema of feet. SKIN: No rash, no masses palpable. NEUROLOGICAL: The patient is awake, alert, oriented x3, mood and affect normal. LABS AND RADIOLOGY: Reviewed results see below Assessment : Patient with a fever in this patient with a recent diagnosis of large B-cell lymphoma currently more likely related to underlying lymphoma as the patient currently do not have any obvious focus of infection patient did have blood cultures from the port and peripherally this has been negative urine was negative CT angiogram of the chest did not show any PE or pneumonia and the patient seemed to have done well over the last 3 days without antibiotic therapy Plan: 1-no need for any systemic antibiotic therapy 2-if the patient did have any changes in his symptomatology appropriate cultures will be obtained before starting him on antibiotic This was discussed with the medical team nurse practitioner who is working on discharge Thank you for this consultation we will follow the patient along with you Past Medical History Past Medical History: Cancer, Hyperlipidemia, Hypertension, Pneumonia Additional Past Medical History / Comment(s): Diverticululitis, recent admit to [facility] for tachycardia and blood in stool, recent mass x [address] kidney and abdominal aorta-dx non hodgkins lymphoma 06/2021), recent gastritis, History of Any Multi-Drug Resistant Organisms: None Reported Past Surgical History: Tonsillectomy Additional Past Surgical History / Comment(s): EGD, colonoscopy x 3, finger reattatchment Past Anesthesia/Blood Transfusion Reactions: No Reported Reaction Past Psychological History: Anxiety, Depression Smoking Status: Never smoker Past Alcohol Use History: Occasional Past Drug Use History: None Reported - Past Family History Mother Family Medical History: Cancer Additional Family Medical History / Comment(s): breast cancer Father Family Medical History: AFIB, Myocardial Infarction ([place]) Additional Family Medical History / Comment(s): CABG Sister(s) Family Medical History: Cancer Additional Family Medical History / Comment(s): breast cancer Medications and Allergies Home Medications Medication Instructions Recorded Confirmed Type Desvenlafaxine Succinate [Pristiq 50 mg PO DAILY 07/14/21 08/02/21 History ER] Pantoprazole Sodium [Protonix] 40 mg PO DAILY #15 tab 07/16/21 08/02/21 Rx Acetaminophen [Tylenol Extra 500 mg PO Q6H PRN 07/25/21 08/02/21 History Strength] Cholecalciferol [Vitamin D3 (25 50 mcg PO DAILY 07/25/21 08/02/21 History Mcg = 1000 Iu)] Aspirin 325 mg PO DAILY 30 Days #30 tab 08/05/21 Rx Metoprolol Tartrate [Lopressor] 50 mg PO TID 30 Days #90 tab 08/05/21 Rx allopurinoL [Zyloprim] 300 mg PO DAILY 30 Days #30 tab 08/05/21 Rx Allergies Allergy/AdvReac Type Severity Reaction Status Date / Time Penicillins Allergy Rash/Hives Verified 08/02/21 12:38 Physical Exam Vitals: Vital Signs Temp Pulse Resp BP Pulse Ox 08/05/21 11:01 98.4 F 99 18 127/81 96 08/05/21 07:59 120 H 18 08/05/21 07:58 99.9 F H 120 H 18 139/85 95 08/05/21 04:00 99.2 F 96 18 125/79 95 08/05/21 00:00 99.4 F 95 20 129/75 94 L 08/04/21 23:59 100.8 F H 94 20 143/95 95 08/04/21 16:42 99.4 F 132 H 18 141/88 96 08/04/21 12:00 98.2 F 124 H 18 137/75 95 Intake and Output 08/04/21 08/05/21 08/05/21 22:59 06:59 14:59 Intake Total 978 480 240 Balance 978 480 240 Intake: Oral 978 480 240 Other: Voiding Method Urinal # Voids 2 3 Results CBC & Chem 7: 08/03/21 08:37 08/03/21 08:37 Labs: Microbiology - Last 24 Hours (Table) 08/02/21 16:00 Blood Culture - Preliminary Blood No Growth after 48 hours 08/02/21 11:54 Blood Culture - Preliminary Blood No Growth after 48 hours 08/02/21 11:50 Blood Culture - Preliminary Blood No Growth after 48 hours
--- NOTE | 2021-08-06 14:28 | P.DS ---
Providers Date of admission: 08/03/21 11:56 Expected date of discharge: 08/05/21 Attending physician: Brit Monroe Consults: 08/02/21 14:51 Consult Physician Urgent Consulting Provider: Woodrow Wells Consult Reason/Comments: fever/tachycardia Do you want consulting provider notified?: Already Contacted 08/05/21 10:44 Consult Physician Routine Consulting Provider: Vladislav Reyna Consult Reason/Comments: fever Do you want consulting provider notified?: Yes Primary care physician: Fe Concepcion Hospital Course: Final diagnosis Atrial fibrillation with fast ventricular rate Non-Hodgkin's lymphoma Fever, tachycardia, ruled out sepsis Full code Discharge disposition Patient is being discharged in a stable condition with guarded prognosis to home. Patient will follow-up with in the outpatient setting upon discharge. Patient is to follow-up with PET scan tomorrow as scheduled. Patient will also need to follow-up with oncology in the outpatient setting. T otal time taken is greater than 35 minutes. Hospital course This is a 60-year-old male who was recently admitted with history of non- Hodgkin's lymphoma and is admitted with fevers also found to have paroxysmal atrial fibrillation with no chest pain or palpitations and feels asymptomatic. Patient was being closely monitored and evaluated by oncology along with infectious disease and patient was maintained off antibiotics and not currently having fevers. Patient does have a scheduled PET scan and scheduled to start treatment on Thursday with oncology. Patient is asking to be discharged home. Currently no reports of chest pain, shortness of breath, or palpitations. Patient is afebrile. No reports of nausea or vomiting and patient is tolerating diet. Patient will be discharged home today. On exam vital signs are stable. Cardio S1, S2 are muffled. Respiratory system shows diminished breath sounds at the bases with no wheezing or rhonchi noted. Abdomen is soft and obese, and nontender. Nervous system shows diffuse weakness. Please refer to medication reconciliation sheet for a list of medications. Patient Condition at Discharge: Good Plan - Discharge Summary Discharge Rx Participant: Yes New Discharge Prescriptions: New Metoprolol Tartrate [Lopressor] 50 mg PO TID 30 Days #90 tab Aspirin 325 mg PO DAILY 30 Days #30 tab allopurinoL [Zyloprim] 300 mg PO DAILY 30 Days #30 tab Continue Desvenlafaxine Succinate [Pristiq ER] 50 mg PO DAILY Cholecalciferol [Vitamin D3 (25 Mcg = 1000 Iu)] 50 mcg PO DAILY Acetaminophen [Tylenol Extra Strength] 500 mg PO Q6H PRN PRN Reason: Pain Pantoprazole Sodium [Protonix] 40 mg PO DAILY #15 tab Discontinued Metoprolol Succinate [Toprol XL] 25 mg PO PC-SUPPER lisinopriL 10 mg PO DAILY Discharge Medication List Desvenlafaxine Succinate [Pristiq ER] 50 mg PO DAILY 07/14/21 [History] Pantoprazole Sodium [Protonix] 40 mg PO DAILY #15 tab 07/16/21 [Rx] Acetaminophen [Tylenol Extra Strength] 500 mg PO Q6H PRN 07/25/21 [History] Cholecalciferol [Vitamin D3 (25 Mcg = 1000 Iu)] 50 mcg PO DAILY 07/25/21 [History] Aspirin 325 mg PO DAILY 30 Days #30 tab 08/05/21 [Rx] Metoprolol Tartrate [Lopressor] 50 mg PO TID 30 Days #90 tab 08/05/21 [Rx] allopurinoL [Zyloprim] 300 mg PO DAILY 30 Days #30 tab 08/05/21 [Rx] Follow up Appointment(s)/Referral(s): Woodrow Wells MD [STAFF PHYSICIAN] - 08/07/21 11:45 am ([address] Wells at [facility] 17 with Adrianna 845 am at [place] ) Fe Concepcion III, MD [Primary Care Provider] - 08/07/21 4:00 pm Patient Instructions/Handouts: Non-Hodgkin Lymphoma (DC) Activity/Diet/Wound Care/Special Instructions: PET SCAN AT [facility] 730 AM, ThursdayJul (TOMORROW MORNING). Activity Limited until follow-up Follow-up with primary care provider on discharge Follow-up with scheduled PET scan tomorrow Follow-up with oncology after PET scan Follow-up with cardiology outpatient Continue current diet Follow-up with scheduled labs as discussed with oncology Discharge Disposition: HOME SELF-CARE
== END 2021-08-05 14:34 | disposition home or self-care (01) | DRG 309 ==
LOC: EC 09:42 → 5NMEDONC 15:21 → 3SCARD 19:34 → OBSVTOIN 08-03 11:56
PROVIDERS: ADMIT Hospitalist; ATTEND Hospitalist
DX: I48.0 Paroxysmal atrial fibrillation (principal); C83.30 Diffuse large B-cell lymphoma, unspecified site; E87.1 Hypo-osmolality and hyponatremia; K29.50 Unspecified chronic gastritis without bleeding; Z20.822 Contact with and (suspected) exposure to COVID-19; K21.00 Gastro-esophageal reflux disease with esophagitis, without bleeding; I10 Essential (primary) hypertension; F41.9 Anxiety disorder, unspecified; E66.9 Obesity, unspecified; Z68.30 Body mass index [BMI] 30.0-30.9, adult; E78.5 Hyperlipidemia, unspecified; F32.A Depression, unspecified; R50.9 Fever, unspecified; Z79.82 Long term (current) use of aspirin; Z79.899 Other long term (current) drug therapy; Z80.3 Family history of malignant neoplasm of breast; Z82.49 Family history of ischemic heart disease and other diseases of the circulatory system; Z85.831 Personal history of malignant neoplasm of soft tissue; Z87.01 Personal history of pneumonia (recurrent); Z90.89 Acquired absence of other organs; Z87.19 Personal history of other diseases of the digestive system; Z88.0 Allergy status to penicillin; Z98.890 Other specified postprocedural states
CPT/HCPCS: 36415; 71046; 71275; 80053; 81003; 82784; 83605; 83615; 83735; 84145; 84439; 84443; 84550; 85025; 85379; 85610; 85730; 86140; 87040; 87502; 87635; 93005; 96360; 99285

== ENCOUNTER 2021-08-28 07:48 | Day surgery (SDC) | payer BC ==
[2021-08-28 08:32] VITALS: RESP 16; TEMP 98.9
[2021-08-28] MEDS ORDERED: diazePAM 5 MG TAB PO STA (08:39)
[2021-08-28] MEDS ORDERED: METHOTREXATE SODIUM (PF) 25 MG/ML 2 ML VIAL INTRATHECA ONE (09:00)
--- NOTE | 2021-08-28 09:47 | P.PCN ---
Date of Procedure: 08/28/21 Preoperative Diagnosis: NHL Postoperative Diagnosis: NHL Procedure(s) Performed: LP with adm of prophylactic IT methotrexate Estimated Blood Loss (ml): 0 IV fluids (ml): 0 Urine output (ml): 0 Pathology: other (cytology and flow cytometry) Condition: stable Disposition: same day Indications for Procedure: NHL with involvement of the kidney Description of Procedure: Radiologist performed LP and removed 4cc of clear CSF, specimen collected for cytology and flow cytometry. 12.5cc sterile, preservative free methotrexate diluted with to a volume of 2.4cc with sterile, preservative free NS. This was instilled over 3 min, flush catheter with 1.6cc of sterile, preservative free NS in latex free syringe. Pt tolerated procedure well, no c/o, VS remained stable, pain reported as a 1.
[2021-08-28 12:57] VITALS: BP 124/76
[2021-08-28 13:00] VITALS: PULSE 74
--- NOTE | 2021-08-28 22:45 | FL ---
EXAMINATION TYPE: FL guided lumbar puncture LP DATE OF EXAM: 08/28/2021 COMPARISON: CT abdomen dated 07/14/2021 INDICATION: Intrathecal injection of chemotherapy. Diffuse large cell lymphoma. TECHNIQUE: Fluoroscopic time of 27 seconds. 2 images in PACS. Informed consent was obtained from the patient after describing the details of the procedure and the possible risks. While the patient is in the prone position and under complete sterile conditions, 1% Lidocaine was gi darin to the skin and underlying tissue opposite L4-5 level slightly to the left of the midline. A 20- gauge spinal needle was used to target the thecal sac at that level utilizing a left sublaminar appro ach. A total of 4 cc of clear CSF were collected and placed in the collecting tube. This is followed by injection of the chemotherapeutic agent (methotrexate) by the oncology nurse foll owed by saline flush. The needle was then removed. The patient tolerated the procedure well with no immediate complication. The patient will be kept in the radiology observation room for 2 hours, then the patient will be discharged home if no complicat ion. The CSF samples were sent for analysis immediately after the procedure was performed. CONCLUSION: Uneventful fluoroscopic guided diagnostic lumbar puncture followed by intrathecal injection of chemot herapy as described above.
== END 2021-08-28 13:09 | disposition home or self-care (01) ==
LOC: RADPROMAIN 07:48
PROVIDERS: ATTEND Internal Medicine Hematology & Oncology
DX: C83.33 Diffuse large B-cell lymphoma, intra-abdominal lymph nodes (principal)
CPT/HCPCS: 96450; 62328; 88108; J9260

== ENCOUNTER 2021-09-18 07:57 | Day surgery (SDC) | payer BC ==
[2021-09-18 08:16] VITALS: TEMP 98.7
[2021-09-18] MEDS ORDERED: diazePAM 5 MG TAB PO STA (08:17)
[2021-09-18] MEDS ORDERED: METHOTREXATE SODIUM (PF) 25 MG/ML 2 ML VIAL INTRATHECA ONE (09:00)
[2021-09-18 10:32] VITALS: RESP 16
[2021-09-18 14:22] VITALS: BP 128/75; PULSE 103
--- NOTE | 2021-09-19 11:13 | FL ---
EXAMINATION TYPE: FL guided lumbar puncture LP DATE OF EXAM: September 18, 2021 COMPARISON: CT abdomen and pelvis July 14, 2021 INDICATION: Intrathecal injection of chemotherapy. Diffuse large cell lymphoma. TECHNIQUE: Fluoroscopic time of 25 seconds. 0 images in PACS. Informed consent was obtained from the patient after describing the details of the procedure and the possible risks. While the patient is in the prone position and under complete sterile conditions, overlying skin is c leansed with Betadine, 1% Lidocaine was given to the skin and underlying tissue opposite L3-L4 level from direct posterior approach under fluoroscopic guidance. A 20-gauge spinal needle was used to tar get the thecal sac . Successful access is obtained. There is slow flow of clear CSF. Oncology nurse practitioner demanded at least 3.5 cc of CSF. Suction was attempted as ordered by oncology nurse pra ctitioner with minimal return. Some repositioning and extensive coughing by the patient eventually wa s able to get a total of 3.5 cc of clear CSF collected and placed in the collecting tube. This is followed by injection of the chemotherapeutic agent by the oncology nurse practitioner. The needle was then removed. The patient tolerated the procedure well with no immediate complication. The patient will be kept in the hospital for 2-3 hours, then discharged home in stable condition. Vital signs monitored before d uring and after procedure. CONCLUSION: Successful fluoroscopic guided diagnostic lumbar puncture followed by intrathecal injection of chemot herapy as described above.
--- NOTE | 2021-09-24 12:11 | P.PCN ---
Date of Procedure: 09/18/21 Preoperative Diagnosis: DLBCL Postoperative Diagnosis: DLBCL Procedure(s) Performed: Lumbar puncture with intrathecal methotrexate, prophylactic treatment Estimated Blood Loss (ml): 0 IV fluids (ml): 0 Pathology: other (cytology and flow cytometry) Condition: stable Disposition: same day Indications for Procedure: DLBCL, extranodal sites Description of Procedure: Radiologist performed LP, 4 cc CSF removed. 12.5mg of sterile, preservative free methotrexate, diluted in sterile normal saline to a volume of 2.4cc was instilled over 2min, catheter was cleared with 1.5 cc of sterile normal saline in a latex free syringe. LP needle removed by Radiologist. Pt tolerated proced ure well.
== END 2021-09-18 13:25 | disposition home or self-care (01) ==
LOC: RADPROMAIN 07:57
PROVIDERS: ATTEND Internal Medicine Hematology & Oncology
DX: C83.33 Diffuse large B-cell lymphoma, intra-abdominal lymph nodes (principal); I10 Essential (primary) hypertension; F41.9 Anxiety disorder, unspecified; Z98.890 Other specified postprocedural states; Z80.9 Family history of malignant neoplasm, unspecified; Z80.3 Family history of malignant neoplasm of breast; Z80.8 Family history of malignant neoplasm of other organs or systems; Z79.82 Long term (current) use of aspirin; Z79.899 Other long term (current) drug therapy; Z88.0 Allergy status to penicillin
CPT/HCPCS: 88108; 96374; 62328; J9260

== ENCOUNTER 2021-10-09 07:49 | Day surgery (SDC) | payer BC ==
[2021-10-09 08:27] VITALS: TEMP 98.1
[2021-10-09] MEDS ORDERED: diazePAM 5 MG TAB PO STA (08:57)
[2021-10-09] MEDS ORDERED: METHOTREXATE SODIUM (PF) 25 MG/ML 2 ML VIAL INTRATHECA ONE (09:00)
[2021-10-09 09:33] VITALS: RESP 16
--- NOTE | 2021-10-09 10:59 | FL ---
EXAMINATION TYPE: FL guided lumbar puncture LP DATE OF EXAM: 10/09/2021 COMPARISON: CT abdomen dated 07/14/2021 INDICATION: Intrathecal injection of chemotherapy. Diffuse large cell lymphoma. TECHNIQUE: Fluoroscopic time of 41 seconds. One image in PACS. Informed consent was obtained from the patient after describing the details of the procedure and the possible risks. While the patient is in the prone position and under complete sterile conditions, 1% Lidocaine was gi darin to the skin and underlying tissue opposite L4-5 level slightly to the left of the midline. A 20- gauge spinal needle was used to target the thecal sac at that level utilizing a left sublaminar appro ach. A total of 2.5 cc of clear CSF were collected and placed in the collecting tube. This is followed by injection of the chemotherapeutic agent by the oncology nurse followed by a salin e flush. The needle was then removed. The patient tolerated the procedure well with no immediate complication. The patient will be kept un cyndee observation for 4 hours, then the patient will be discharged home if no complication. The CSF michelle ples were sent for analysis immediately after the procedure was performed. CONCLUSION: Uneventful fluoroscopic guided diagnostic lumbar puncture followed by intrathecal injection of chemot herapy as described above.
[2021-10-09 13:26] VITALS: BP 143/87; PULSE 104
--- NOTE | 2021-10-10 09:17 | P.PCN ---
Date of Procedure: 10/10/21 Preoperative Diagnosis: DLBCL Postoperative Diagnosis: DLBCL Procedure(s) Performed: LP with IT methotrexate Estimated Blood Loss (ml): 0 IV fluids (ml): 0 Urine output (ml): 0 Disposition: same day Indications for Procedure: DLBCL multiple LN sites Description of Procedure: Radiologist performed LP and removed about 3cc of CSF, specimen sent for cytology and flow cytometry. 12mg of sterile, preservative free methotrexate diluted with sterile NS to a volume of 2.4cc was instilled over 2 minutes, tu elizabeth flushed with 6cc sterile NS in latex free syringe. Pt tolerate procedure well.
== END 2021-10-09 14:20 | disposition home or self-care (01) ==
LOC: RADPROMAIN 07:49
PROVIDERS: ATTEND Internal Medicine Hematology & Oncology
DX: C83.33 Diffuse large B-cell lymphoma, intra-abdominal lymph nodes (principal)
CPT/HCPCS: 88108; 96450; J9260; 62328

== ENCOUNTER 2021-10-16 10:19 | Inpatient (IN) | payer BC ==
[2021-10-16] MEDS ORDERED: ONDANSETRON 4 MG/2 ML VIAL IVP PRN (13:00)
[2021-10-16 14:46] LABS: ALT 56 U/L (4-49); AST 60 U/L (17-59); African American GFR (CKD) >90 (>60 ml/min/1.73 sqM); Albumin 3.5 g/dL (3.5-5.0); Albumin/Globulin Ratio 1.3; Alkaline Phosphatase 141 U/L (38-126); Anion Gap 7 mmol/L; Blood Urea Nitrogen 14 mg/dL (9-20); Calcium 8.9 mg/dL (8.4-10.2); Carbon Dioxide 24 mmol/L (22-30); Chloride 101 mmol/L (98-107); Globulin 2.7 g/dL; Glucose 141 mg/dL (74-99); Non-African American GFR(CKD) >90 (>60 ml/min/1.73 sqM); Phosphorus 3.6 mg/dL (2.5-4.5); Sodium 132 mmol/L (137-145); Total Bilirubin 0.5 mg/dL (0.2-1.3); Total Protein 6.2 g/dL (6.3-8.2); Uric Acid 2.7 mg/dL (3.5-8.5)
[2021-10-16 15:03] LABS: Anisocytosis Slight; Basophils # (A) 0.1 k/uL (0-0.2); Basophils % (A) 1 %; Eosinophils % (A) 0 %; HCT 35.3 % (39.0-53.0); HGB 11.3 gm/dL (13.0-17.5); Hypochromasia Slight; Lymphocytes # (A) 0.2 k/uL (1.0-4.8); Lymphocytes % (A) 2 %; MCH 26.2 pg (25.0-35.0); MCV 81.9 fL (80.0-100.0); Mean Platelet Volume 6.7; Microcytosis Slight; Monocytes # (A) 0.2 k/uL (0-1.0); Monocytes % (A) 3 %; Neutrophils # (A) 7.2 k/uL (1.3-7.7); Neutrophils % (A) 92 %; Platelet Count 484 k/uL (150-450); Poikilocytosis Slight; RBC 4.31 m/uL (4.30-5.90); RDW 19.3 % (11.5-15.5); WBC 7.9 k/uL (3.8-10.6)
[2021-10-16] MEDS: SODIUM CHLORIDE 0.9% 1,000 ML IV SCH ×2 (15:23→23:01)
[2021-10-16] MEDS: ETOPOSIDE 180 MG in SODIUM CHLORIDE 0.9% 500 ML 500 ML IV SCH (16:20)
[2021-10-16] MEDS ORDERED: SENNOSIDES-DOCUSATE SODIUM 1 EACH TAB PO PRN (18:41)
[2021-10-16] MEDS ORDERED: LORazepam 0.5 MG TAB PO PRN (18:41)
[2021-10-16] MEDS ORDERED: ACETAMINOPHEN TAB 500 MG TAB PO PRN (18:41)
[2021-10-17] MEDS: METOPROLOL SUCCINATE (ER) 50 MG TAB.ER.24H PO SCH (08:14)
[2021-10-17] MEDS: allopurinoL 300 MG TAB PO SCH (08:14)
[2021-10-17] MEDS: CHOLECALCIFEROL 25 MCG (1000 IU) TABLET PO SCH (08:14)
[2021-10-17] MEDS: SODIUM CHLORIDE 0.9% 1,000 ML IV SCH ×2 (08:15→15:23)
[2021-10-17 10:52] LABS: Basophils # (A) 0.04 X 10*3/uL (0.00-0.10); Basophils % (A) 0.3 %; Eosinophils # (A) 0.02 X 10*3/uL (0.04-0.35); Eosinophils % (A) 0.1 %; HGB 9.7 g/dL (13.0-17.0); Immature Grans, Automated 1.7 %; Lymphocytes # (A) 0.14 X 10*3/uL (0.90-5.00); MCH 26.2 pg (27.0-32.0); MCHC 32.3 g/dL (32.0-37.0); MCV 81.1 fL (80.0-97.0); Monocytes # (A) 2.45 X 10*3/uL (0.20-1.00); Monocytes % (A) 17.8 %; NRBC Per 100 WBC 0 /100 WBCS (0.0-0.0); Neutrophils # (A) 10.89 X 10*3/uL (1.80-7.70); Neutrophils % (A) 79.1 %; Platelet Count 401 X 10*3/uL (140-440); RDW 19.2 % (11.5-14.5); WBC 13.78 X 10*3/uL (4.50-10.00)
[2021-10-17 11:09] LABS: African American GFR (CKD) 127.6 (60.0-200.0); Albumin 3.4 g/dL (3.8-4.9); Albumin/Globulin Ratio 1.7 (1.60-3.17); Anion Gap 10.3 mmol/L (10.00-18.00); BUN/Creat Ratio 18.67 Ratio (12.00-20.00); Blood Urea Nitrogen 11.2 mg/dL (9.0-27.0); Calcium 8.8 mg/dL (8.7-10.3); Carbon Dioxide 20.7 mmol/L (20.0-27.5); Non-African American GFR(CKD) 110.1 (60.0-200.0); Phosphorus 3.3 mg/dL (2.4-5.1); Potassium 4.7 mmol/L (3.5-5.5); Total Bilirubin 0.2 mg/dL (0.30-1.20); Total Protein 5.4 g/dL (6.2-8.2); Uric Acid 3.6 mg/dL (3.7-8.7)
[2021-10-17] MEDS: DEXAMETHASONE SOD PHOSPHATE 10 MG/ML 1 ML VIAL IVP SCH (15:23)
[2021-10-17] MEDS: ONDANSETRON 16 MG in SODIUM CHLORIDE 0.9% 50 ML IVPB SCH (15:23)
[2021-10-17] MEDS: FAMOTIDINE 20 MG/2 ML VIAL IV SCH (15:23)
--- NOTE | 2021-10-17 15:24 | P.HPIM ---
History of Present Illness H&P Date: 10/17/21 Mr Santana is a pleasant white male, initially seen in consult at [facility] on 07/15/21. The patient had developed pain in the right upper abdomen that had started a few days prior to admission. He had sought attention with his PCP, and was started on antibiotic for possible cholecystitis. He actually had improvement in the right upper quadrant symptoms but then developed black stools. He therefore came into the emergency room. He had a CT of the abdomen and pelvis that revealed a large retroperitoneal mass anterior to the aorta about 9.3 x 7 x 8 cm which appeared to be adherent to the anterior aorta. This was also encasing the origin of the inferior mesenteric artery. Additional enlarged lymph nodes were noted at the level of the aorta and inferior to the vena cava. There was also a large mass that seemed to be arising from the lower pole of the right kidney and extending inferiorly to the cecum. On examination the patient had no palpable adenopathy. He had a CT of the chest on that was negative. He had an EGD, that showed no significant findings other than mild antral inflammation and mild chronic gastritis and chronic esophagitis on pathology. He also had biopsy of the right pararenal mass with IR. The patient was subsequently discharged. Preliminary pathology on the pararenal mass was diffuse large B-cell lymphoma. He has received IT chemo last on 10/10. He is admitted now for treatment with systemic RICE Review of Systems All systems: negative Constitutional: Reports as per HPI Past Medical History Past Medical History: Cancer, GERD/Reflux, Hyperlipidemia, Hypertension, Pneumonia Additional Past Medical History / Comment(s): R upper abdominal pain/black stool and had cat scans that showed large retroperitoneal mass anterior to abdominal aorta and R kidney mass lower pole, pt has been diagnosed with large B cell lymphoma. Other hx: 08/03/21 Paroxysmal afib with RVR/fever, diverticulitis. History of Any Multi-Drug Resistant Organisms: None Reported Past Surgical History: Orthopedic Surgery, Tonsillectomy Additional Past Surgical History / Comment(s): R pararenal mass biopsy, port a cath, R middle finger reattached, EGD, colonoscopy x 3, finger reattatchment Past Anesthesia/Blood Transfusion Reactions: No Reported Reaction Smoking Status: Never smoker - Past Family History Mother Family Medical History: Cancer Additional Family Medical History / Comment(s): Mother from breast cancer at the age of 45yrs. Father Family Medical History: AFIB, Coronary Artery Disease (CAD), Myocardial Infarction ([place]) Additional Family Medical History / Comment(s): CABG Sister(s) Family Medical History: Cancer Additional Family Medical History / Comment(s): breast cancer Medications and Allergies Home Medications Medication Instructions Recorded Confirmed Type Acetaminophen [Tylenol Extra 500 mg PO Q6H PRN 07/25/21 10/16/21 History Strength] Cholecalciferol [Vitamin D3 (25 50 mcg PO DAILY 07/25/21 10/16/21 History Mcg = 1000 Iu)] allopurinoL [Zyloprim] 300 mg PO DAILY 30 Days #30 tab 08/05/21 10/16/21 Rx Pantoprazole Sodium [Protonix] 40 mg PO DAILY 08/16/21 10/16/21 History Sennosides-Docusate Sodium 1 tab PO DAILY PRN 08/16/21 10/16/21 History [Senokot-S] Desvenlafaxine [Pristiq ER] 100 mg PO DAILY 10/16/21 10/16/21 History LORazepam [Ativan] 0.5 mg PO Q6H PRN 10/16/21 10/16/21 History Metoprolol Succinate (ER) [Toprol 50 mg PO DAILY 10/16/21 10/16/21 History Xl] Ondansetron Odt [Zofran Odt] 4 mg PO Q6H PRN 10/16/21 10/16/21 History Allergies Allergy/AdvReac Type Severity Reaction Status Date / Time bee venom protein (honey bee) Allergy Swelling Verified 10/16/21 15:10 at sting site Penicillins Allergy Rash/Hives Verified 10/16/21 15:10 all over body Physical Exam Vitals: Vital Signs Temp Pulse Resp BP Pulse Ox 10/17/21 12:00 98.5 F 94 19 156/92 98 10/17/21 08:20 107 H 16 10/17/21 08:00 95 130/70 10/17/21 04:00 97.9 F 107 H 16 124/67 95 10/16/21 20:51 98.3 F 116 H 16 148/84 94 L Intake and Output 10/17/21 10/17/21 10/17/21 06:59 14:59 22:59 Intake Total 2450 Balance 2450 Intake: Intake, IV Titration 1500 Amount Sodium Chloride 0.9% 1, 1500 000 ml @ 125 mls/hr IV . Q8H [facility] Rx#:[id number] Oral 950 Other: # Voids 2 - Constitutional General appearance: cooperative, no acute distress - EENT Eyes: EOMI, PERRLA ENT: hard of hearing, NA/AT - Respiratory Respiratory: bilateral: CTA - Cardiovascular Rhythm: regularly irregular - Gastrointestinal General gastrointestinal: normal bowel sounds - Integumentary Integumentary: pale - Neurologic Neurologic: CNII-XII intact - Musculoskeletal Musculoskeletal: generalized weakness - Psychiatric Psychiatric: A&O x's 3, appropriate affect Results CBC & Chem 7: 10/17/21 07:15 10/17/21 07:15 Labs: Abnormal Lab Results - Last 24 Hours (Table) 10/16/21 10/17/21 10/17/21 Range/Units 14:15 07:15 07:15 WBC 13.78 H (4.50-10.00) X 10*3/uL RBC 3.70 L (4.40-5.60) X 10*6/uL Hgb 11.3 L 9.7 L (13.0-17.5) gm/dL Hct 35.3 L 30.0 L (39.0-53.0) % MCH 26.2 L (27.0-32.0) pg RDW 19.3 H 19.2 H (11.5-15.5) % Plt Count 484 H (150-450) k/uL MPV 9.0 L (9.5-12.2) fL Immature Gran # 0.24 H (0.00-0.04) X 10*3/uL Neutrophils # 10.89 H (1.80-7.70) X 10*3/uL Lymphocytes # 0.2 L 0.14 L (1.0-4.8) k/uL Monocytes # 2.45 H (0.20-1.00) X 10*3/uL Eosinophils # 0.02 L (0.04-0.35) X 10*3/uL Uric Acid 3.6 L (3.7-8.7) mg/dL Total Bilirubin 0.20 L (0.30-1.20) mg/dL Alkaline Phosphatase 128 H (41-126) U/L Total Protein 5.4 L (6.2-8.2) g/dL Albumin 3.4 L (3.8-4.9) g/dL Thrombosis Risk Factor Assmnt - DVT/VTE Prophylaxis DVT/VTE Prophylaxis: Pharmacologic Prophylaxis ordered - Choose All That Apply Any of the Below Risk Factors Present?: Yes Each Factor Represents 1 point: Age 41-60 years, Obesity (BMI >25) Other Risk Factors: Yes Each Risk Factor Represents 2 Points: Malignancy Other congenital or acquired thrombophilia - If yes, enter type in comment: No Thrombosis Risk Factor Assessment Total Risk Factor Score: 4 Thrombosis Risk Factor Assessment Level: Moderate Risk Assessment and Plan (1) Atrial fibrillation with RVR Current Visit: No Status: Acute Priority: High Code(s): I48.91 - UNSPECIFIED ATRIAL FIBRILLATION SNOMED Code(s): 450494087805098 (2) Large B-cell lymphoma Narrative/Plan: Status POst IT on 10/11/21 Day 2 of RICE Daily LABS UA prior to Ifos Monitor s/s bleeding, infection, MS changes Lovenox VTE prophylaxis as long as platelets >50K Current Visit: Yes Status: Acute Code(s): C85.10 - UNSPECIFIED B-CELL LYMPHOMA, UNSPECIFIED SITE SNOMED Code(s): 253073021 Plan: Dr. Castillo: I have completed the full history and physical and developed impression and plan, agree with dictation, dictated as a scribe
[2021-10-17 16:22] LABS: Anisocytosis Slight; Basophils # (A) 0.1 k/uL (0-0.2); Basophils % (A) 1 %; Eosinophils # (A) 0.1 k/uL (0-0.7); Eosinophils % (A) 0 %; HCT 32.8 % (39.0-53.0); HGB 10.7 gm/dL (13.0-17.5); Hypochromasia Slight; Lymphocytes # (A) 0.2 k/uL (1.0-4.8); Lymphocytes % (A) 1 %; MCH 27.2 pg (25.0-35.0); MCHC 32.6 g/dL (31.0-37.0); MCV 83.3 fL (80.0-100.0); Mean Platelet Volume 6.8; Monocytes # (A) 1.3 k/uL (0-1.0); Monocytes % (A) 12 %; Neutrophils # (A) 9.9 k/uL (1.3-7.7); Neutrophils % (A) 85 %; Platelet Count 484 k/uL (150-450); Poikilocytosis Slight; RBC 3.94 m/uL (4.30-5.90); WBC 11.7 k/uL (3.8-10.6)
[2021-10-17] MEDS: ETOPOSIDE 180 MG in SODIUM CHLORIDE 0.9% 500 ML 500 ML IV SCH (17:32)
[2021-10-17] MEDS ORDERED: SODIUM CHLORIDE 0.9% IV ONE ×2 (18:00)
[2021-10-17] MEDS ORDERED: MESNA IV ONE (18:00)
[2021-10-17] MEDS ORDERED: CARBOplatin 600 MG in SODIUM CHLORIDE 0.9% 250 ML IV ONE (18:00)
[2021-10-17] MEDS ORDERED: IFOSFAMIDE IV ONE (18:00)
[2021-10-17 19:22] LABS: Appearance,Urine Clear (Clear); Bilirubin,Urine Negative (Negative); Blood,Urine Negative (Negative); Color,Urine Colorless; Glucose,Urine (UA) Negative (Negative); Ketones,Urine Negative (Negative); Leukocyte Esterase,Urine Negative (Negative); Nitrite,Urine Negative (Negative); PH, Urine 5.5 (5.0-8.0); Protein,Urine Negative (Negative); Specific Gravity,Urine 1.004 (1.001-1.035); Urobilinogen,Urine <2.0 mg/dL (<2.0)
[2021-10-17 23:13] LABS: % Iron Saturation 69.26 (15.00-50.00)
[2021-10-18] MEDS: SODIUM CHLORIDE 0.9% 1,000 ML IV SCH ×3 (03:56→13:10)
[2021-10-18] MEDS: CHOLECALCIFEROL 25 MCG (1000 IU) TABLET PO SCH (07:39)
[2021-10-18] MEDS: METOPROLOL SUCCINATE (ER) 50 MG TAB.ER.24H PO SCH (07:39)
[2021-10-18] MEDS: allopurinoL 300 MG TAB PO SCH (07:39)
[2021-10-18 08:06] LABS: Appearance,Urine Clear (Clear); Bilirubin,Urine Negative (Negative); Blood,Urine Negative (Negative); Color,Urine Light Yellow; Glucose,Urine (UA) Trace (Negative); Ketones,Urine 4+ (Negative); Leukocyte Esterase,Urine Negative (Negative); Nitrite,Urine Negative (Negative); Protein,Urine Negative (Negative); Specific Gravity,Urine 1.012 (1.001-1.035); Urobilinogen,Urine <2.0 mg/dL (<2.0)
[2021-10-18] MEDS ORDERED: ENOXAPARIN 40 MG/0.4 ML SYRINGE SQ SCH (09:00)
[2021-10-18 09:28] LABS: Basophils # (A) 0.01 X 10*3/uL (0.00-0.10); Basophils % (A) 0.1 %; Eosinophils # (A) 0 X 10*3/uL (0.04-0.35); Eosinophils % (A) 0 %; HGB 10.3 g/dL (13.0-17.0); Immature Grans, Automated 1.5 %; Lymphocytes # (A) 0.11 X 10*3/uL (0.90-5.00); Lymphocytes % (A) 1.3 %; MCH 26.1 pg (27.0-32.0); MCHC 32.2 g/dL (32.0-37.0); MCV 81.2 fL (80.0-97.0); Monocytes # (A) 1.07 X 10*3/uL (0.20-1.00); Monocytes % (A) 12.5 %; NRBC Per 100 WBC 0 /100 WBCS (0.0-0.0); Neutrophils # (A) 7.26 X 10*3/uL (1.80-7.70); Neutrophils % (A) 84.6 %; Platelet Count 474 X 10*3/uL (140-440); RBC 3.94 X 10*6/uL (4.40-5.60); RDW 19.5 % (11.5-14.5); WBC 8.58 X 10*3/uL (4.50-10.00)
[2021-10-18 09:47] LABS: INR 1.06 (0.90-1.11); Prothrombin Time 11.6 sec (9.9-11.9)
[2021-10-18 09:57] LABS: African American GFR (CKD) 119.7 (60.0-200.0); Albumin 3.6 g/dL (3.8-4.9); Albumin/Globulin Ratio 1.64 (1.60-3.17); Anion Gap 13.6 mmol/L (10.00-18.00); BUN/Creat Ratio 17.86 Ratio (12.00-20.00); Blood Urea Nitrogen 12.5 mg/dL (9.0-27.0); Calcium 8.9 mg/dL (8.7-10.3); Carbon Dioxide 19.4 mmol/L (20.0-27.5); Globulin 2.2 g/dL (1.6-3.3); Non-African American GFR(CKD) 103.3 (60.0-200.0); Potassium 4.6 mmol/L (3.5-5.5); Total Bilirubin 0.3 mg/dL (0.30-1.20); Total Protein 5.8 g/dL (6.2-8.2); Uric Acid 3.3 mg/dL (3.7-8.7)
[2021-10-18] MEDS ORDERED: DESVENLAFAXINE SUCCINATE 50 MG TAB.ER.24H PO SCH (10:30)
[2021-10-18] MEDS: DEXAMETHASONE SOD PHOSPHATE 10 MG/ML 1 ML VIAL IVP SCH (16:57)
[2021-10-18] MEDS: FAMOTIDINE 20 MG/2 ML VIAL IV SCH (16:57)
[2021-10-18] MEDS: ONDANSETRON 16 MG in SODIUM CHLORIDE 0.9% 50 ML IVPB SCH (16:57)
[2021-10-18] MEDS: ETOPOSIDE 180 MG in SODIUM CHLORIDE 0.9% 500 ML 500 ML IV SCH (18:05)
--- NOTE | 2021-10-18 19:01 | P.DS ---
Providers Date of admission: 10/16/21 12:57 Expected date of discharge: 10/18/21 Attending physician: Woodrow Wells Consults: 10/17/21 15:24 Consult Physician Routine Consulting Provider: Brit Monroe Consult Reason/Comments: medical management Do you want consulting provider notified?: Yes Primary care physician: Fe Aguirre Carlene - Discharge Diagnosis(es) (1) Atrial fibrillation with RVR Current Visit: No Status: Acute Priority: High (2) Large B-cell lymphoma Current Visit: Yes Status: Acute Hospital Course: Chemotherapy with RICE cycle one Prophylaxis given and aware of injection Neulasta on Thursday Patient Condition at Discharge: Fair Plan - Discharge Summary Discharge Rx Participant: No New Discharge Prescriptions: New Nystatin 100,000 Unit/ml Susp [Mycostatin Oral Susp] 4 ml PO QID #340 ml Acyclovir 400 mg PO BID #60 tablet Levofloxacin [Levaquin] 500 mg PO DAILY 20 Days #20 tab Continue Cholecalciferol [Vitamin D3 (25 Mcg = 1000 Iu)] 50 mcg PO DAILY Acetaminophen [Tylenol Extra Strength] 500 mg PO Q6H PRN PRN Reason: Pain Pantoprazole Sodium [Protonix] 40 mg PO DAILY Ondansetron Odt [Zofran ODT] 4 mg PO Q6H PRN PRN Reason: Nausea LORazepam [Ativan] 0.5 mg PO Q6H PRN PRN Reason: Anxiety/Insomnia Metoprolol Succinate (ER) [Toprol XL] 50 mg PO DAILY Desvenlafaxine [Pristiq ER] 100 mg PO DAILY allopurinoL [Zyloprim] 300 mg PO DAILY 30 Days #30 tab Sennosides-Docusate Sodium [Senokot-S] 1 tab PO DAILY PRN PRN Reason: Constipation Discharge Medication List Acetaminophen [Tylenol Extra Strength] 500 mg PO Q6H PRN 07/25/21 [History] Cholecalciferol [Vitamin D3 (25 Mcg = 1000 Iu)] 50 mcg PO DAILY 07/25/21 [History] allopurinoL [Zyloprim] 300 mg PO DAILY 30 Days #30 tab 08/05/21 [Rx] Pantoprazole Sodium [Protonix] 40 mg PO DAILY 08/16/21 [History] Sennosides-Docusate Sodium [Senokot-S] 1 tab PO DAILY PRN 08/16/21 [History] Desvenlafaxine [Pristiq ER] 100 mg PO DAILY 10/16/21 [History] LORazepam [Ativan] 0.5 mg PO Q6H PRN 10/16/21 [History] Metoprolol Succinate (ER) [Toprol XL] 50 mg PO DAILY 10/16/21 [History] Ondansetron Odt [Zofran ODT] 4 mg PO Q6H PRN 10/16/21 [History] Acyclovir 400 mg PO BID #60 tablet 10/18/21 [Rx] Levofloxacin [Levaquin] 500 mg PO DAILY 20 Days #20 tab 10/18/21 [Rx] Nystatin 100,000 Unit/ml Susp [Mycostatin Oral Susp] 4 ml PO QID #340 ml 10/18/21 [Rx] Follow up Appointment(s)/Referral(s): Chris Escobar MD [STAFF PHYSICIAN] - 3 Days (Neulasta injection on Thursday ) Activity/Diet/Wound Care/Special Instructions: diet as tolerated Activity limited until seen by Dr. Maciel Disposition: HOME SELF-CARE
[2021-10-18 19:45] VITALS: BP 139/85; PULSE 103; RESP 20; TEMP 97.6
--- NOTE | 2021-10-19 00:16 | P.CONS ---
History of Present Illness - Reason for Consult Consult date: 10/18/21 Medical management - Chief Complaint Admitted for chemotherapy - History of Present Illness Patient is a 60-year-old male with known history of hypertension, hyperlipidemia, GERD, large B-cell lymphoma recently diagnosed and history of paroxysmal atrial fibrillation was admitted to the hospital for chemotherapy. Patient received last chemo on 10/10/2021. Patient denied any complaints of chest pain or shortness of breath. No complaints of nausea or vomiting or or diarrhea. Abdominal pain is controlled. Patient does complain of headache and want to start back on Pristiq which he takes at home. Patient has been afebrile. No cough or sputum production. He had a CT of the abdomen and pelvis that revealed a large retroperitoneal mass anterior to the aorta about 9.3 x 7 x 8 cm which appeared to be adherent to the anterior aorta. This was also encasing the origin of the inferior mesenteric artery. Additional enlarged lymph nodes were noted at the level of the aorta and inferior to the vena cava. There was also a large mass that seemed to be arising from the lower pole of the right kidney and extending inferiorly to the cecum. Laboratory data showed WBC 11.7 hemoglobin 10.7 and platelets 484. B12 395 AST 32 ALT 48 and alk phos 128 albumin 3.4 Urinalysis is negative for infection. Review of Systems Constitutional: Patient denies any fever or chills . No generalized weakness or weight loss. Abdomen: Patient denied nausea vomiting and diarrhea and abdominal pain. Cardiovascular: Patient denies any chest pain or short of breath no palpitatio ns. Respiratory: patient denied any cough or sputum production. No shortness of breath Neurologic: Patient denied any numbness or tingling headache. Musculoskeletal: Patient denies any complaints of joint swelling or deformity. Skin: Negative Psychiatric: Negative Endocrine: No heat or cold intolerance. No recent weight gain. Genitourinary: No dysuria or hematuria. All other 14 point ROS negative except the above Past Medical History Past Medical History: Cancer, GERD/Reflux, Hyperlipidemia, Hypertension, Pneumonia Additional Past Medical History / Comment(s): R upper abdominal pain/black stool and had cat scans that showed large retroperitoneal mass anterior to abdominal aorta and R kidney mass lower pole, pt has been diagnosed with large B cell lymphoma. Other hx: 08/03/21 Paroxysmal afib with RVR/fever, diverticulitis. History of Any Multi-Drug Resistant Organisms: None Reported Past Surgical History: Orthopedic Surgery, Tonsillectomy Additional Past Surgical History / Comment(s): R pararenal mass biopsy, port a cath, R middle finger reattached, EGD, colonoscopy x 3, finger reattatchment Past Anesthesia/Blood Transfusion Reactions: No Reported Reaction Smoking Status: Never smoker - Past Family History Mother Family Medical History: Cancer Additional Family Medical History / Comment(s): Mother from breast cancer at the age of 45yrs. Father Family Medical History: AFIB, Coronary Artery Disease (CAD), Myocardial Infarction ([place]) Additional Family Medical History / Comment(s): CABG Sister(s) Family Medical History: Cancer Additional Family Medical History / Comment(s): breast cancer Medications and Allergies Home Medications Medication Instructions Recorded Confirmed Type Acetaminophen [Tylenol Extra 500 mg PO Q6H PRN 07/25/21 10/16/21 History Strength] Cholecalciferol [Vitamin D3 (25 50 mcg PO DAILY 07/25/21 10/16/21 History Mcg = 1000 Iu)] allopurinoL [Zyloprim] 300 mg PO DAILY 30 Days #30 tab 08/05/21 10/16/21 Rx Pantoprazole Sodium [Protonix] 40 mg PO DAILY 08/16/21 10/16/21 History Sennosides-Docusate Sodium 1 tab PO DAILY PRN 08/16/21 10/16/21 History [Senokot-S] Desvenlafaxine [Pristiq ER] 100 mg PO DAILY 10/16/21 10/16/21 History LORazepam [Ativan] 0.5 mg PO Q6H PRN 10/16/21 10/16/21 History Metoprolol Succinate (ER) [Toprol 50 mg PO DAILY 10/16/21 10/16/21 History XL] Ondansetron Odt [Zofran ODT] 4 mg PO Q6H PRN 10/16/21 10/16/21 History Acyclovir 400 mg PO BID #60 tablet 10/18/21 Rx Levofloxacin [Levaquin] 500 mg PO DAILY 20 Days #20 tab 10/18/21 Rx Nystatin 100,000 Unit/ml Susp 4 ml PO QID #340 ml 10/18/21 Rx [Mycostatin Oral Susp] Allergies Allergy/AdvReac Type Severity Reaction Status Date / Time bee venom protein (honey bee) Allergy Swelling Verified 10/16/21 15:10 at sting site Penicillins Allergy Rash/Hives Verified 10/16/21 15:10 all over body Physical Exam Vitals: Vital Signs Temp Pulse Resp BP Pulse Ox 10/18/21 08:30 97.6 F 107 H 20 155/79 96 10/18/21 04:00 97.8 F 114 H 20 123/80 99 10/18/21 00:00 103 H 16 136/78 10/17/21 19:10 94 10/17/21 18:50 98.2 F 141 H 20 153/101 92 L 10/17/21 16:00 97.9 F 97 21 142/90 97 10/17/21 12:00 98.5 F 94 19 156/92 98 Intake and Output 10/17/21 10/18/21 10/18/21 22:59 06:59 14:59 Intake Total 1760 1860 Balance 1760 1860 Intake: Intake, IV Titration 1400 1500 Amount Sodium Chloride 0.9% 1, 1400 1500 000 ml @ 125 mls/hr IV . Q8H [facility] Rx#:[id number] Oral 360 360 Other: # Voids 3 1 # Bowel Movements 1 PHYSICAL EXAMINATION: Patient is lying in the bed comfortably, no acute distress, awake alert and oriented.. HEENT: Normocephalic. Neck is supple. Pupils reactive. Nostrils clear. Oral cavity is moist. Neck reveals no JVD, carotid bruits, or thyromegaly. CHEST EXAMINATION: Trachea is central. Symmetrical expansion. Lung enciso clear to auscultation and percussion. CARDIAC: Normal S1, S2 with no gallops. No murmurs ABDOMEN: Soft. Bowel sounds normal. No organomegaly. No abdominal bruits. Extremities: reveal no edema. No clubbing or cyanosis Neurologically awake, alert, oriented x3 with well-coordinated movements. No focal deficits noted Skin: No rash or skin lesions. Psychiatric: Cooperative. Nonsuicidal Musculoskeletal: No joint swelling or deformity. Normal range of motion. Results CBC & Chem 7: 10/18/21 05:40 10/18/21 05:40 Labs: Abnormal Lab Results - Last 24 Hours (Table) 10/17/21 10/17/21 10/17/21 Range/Units 07:15 07:15 15:32 WBC 13.78 H 11.7 H (4.50-10.00) X 10*3/uL RBC 3.70 L 3.94 L (4.40-5.60) X 10*6/uL Hgb 9.7 L 10.7 L (13.0-17.0) g/dL Hct 30.0 L 32.8 L (39.6-50.0) % MCH 26.2 L (27.0-32.0) pg RDW 19.2 H 19.0 H (11.5-14.5) % Plt Count 484 H (150-450) k/uL MPV 9.0 L (9.5-12.2) fL Immature Gran # 0.24 H (0.00-0.04) X 10*3/uL Neutrophils # 10.89 H 9.9 H (1.80-7.70) X 10*3/uL Lymphocytes # 0.14 L 0.2 L (0.90-5.00) X 10*3/uL Monocytes # 2.45 H 1.3 H (0.20-1.00) X 10*3/uL Eosinophils # 0.02 L (0.04-0.35) X 10*3/uL Uric Acid 3.6 L (3.7-8.7) mg/dL % Saturation (15.00-50.00) Transferrin (204.0-354.0) mg/dL Ferritin (22.0-322.0) ng/mL Total Bilirubin 0.20 L (0.30-1.20) mg/dL Alkaline Phosphatase 128 H (41-126) U/L Total Protein 5.4 L (6.2-8.2) g/dL Albumin 3.4 L (3.8-4.9) g/dL Urine Glucose (UA) (Negative) Urine Ketones (Negative) 10/17/21 10/18/21 10/18/21 Range/Units 15:32 05:40 07:00 WBC (4.50-10.00) X 10*3/uL RBC 3.94 L (4.40-5.60) X 10*6/uL Hgb 10.3 L (13.0-17.0) g/dL Hct 32.0 L (39.6-50.0) % MCH 26.1 L (27.0-32.0) pg RDW 19.5 H (11.5-14.5) % Plt Count 474 H (150-450) k/uL MPV 9.0 L (9.5-12.2) fL Immature Gran # 0.13 H (0.00-0.04) X 10*3/uL Neutrophils # (1.80-7.70) X 10*3/uL Lymphocytes # 0.11 L (0.90-5.00) X 10*3/uL Monocytes # 1.07 H (0.20-1.00) X 10*3/uL Eosinophils # 0 L (0.04-0.35) X 10*3/uL Uric Acid (3.7-8.7) mg/dL % Saturation 69.26 H (15.00-50.00) Transferrin 165.0 L (204.0-354.0) mg/dL Ferritin 2306.0 H (22.0-322.0) ng/mL Total Bilirubin (0.30-1.20) mg/dL Alkaline Phosphatase (41-126) U/L Total Protein (6.2-8.2) g/dL Albumin (3.8-4.9) g/dL Urine Glucose (UA) Trace H (Negative) Urine Ketones 4+ H (Negative) Assessment and Plan Assessment: Large B-cell lymphoma admitted to hospital for chemotherapy. Status post Status POst IT on 10/11/21 Day 2 of RICE History of paroxysmal atrial fibrillation currently in sinus rhythm. On metoprolol at home Anxiety/depression GI and DVT prophylaxis Plan: Patient will be continued home medication including Pristiq and follow-up CBC and BMP. IVF. Follow-up liver enzymes. Continue with chemotherapy as per oncology recommendations. Further recommendations based on clinical course. Echo thank you for your consult. Time with Patient: Greater than 30
== END 2021-10-18 21:31 | disposition home or self-care (01) | DRG 847 ==
LOC: 5NMEDONC 12:57
PROVIDERS: ADMIT Internal Medicine Hematology & Oncology; ATTEND Internal Medicine Hematology & Oncology
DX: Z51.11 Encounter for antineoplastic chemotherapy (principal); C83.38 Diffuse large B-cell lymphoma, lymph nodes of multiple sites; I48.0 Paroxysmal atrial fibrillation; E78.5 Hyperlipidemia, unspecified; I10 Essential (primary) hypertension; K21.00 Gastro-esophageal reflux disease with esophagitis, without bleeding; K29.50 Unspecified chronic gastritis without bleeding; R51.9 Headache, unspecified; F32.A Depression, unspecified; F41.9 Anxiety disorder, unspecified; Z79.899 Other long term (current) drug therapy; Z87.01 Personal history of pneumonia (recurrent); Z90.89 Acquired absence of other organs; Z87.39 Personal history of other diseases of the musculoskeletal system and connective tissue; Z60.2 Problems related to living alone; Z98.890 Other specified postprocedural states; Z88.0 Allergy status to penicillin; Z91.030 Bee allergy status; Z80.3 Family history of malignant neoplasm of breast; Z82.49 Family history of ischemic heart disease and other diseases of the circulatory system
CPT/HCPCS: 80053; 81003; 82607; 82728; 82746; 83540; 83550; 83615; 83735; 84100; 84550; 85025; 85610

== ENCOUNTER 2021-10-30 07:53 | Day surgery (SDC) | payer BC ==
[2021-10-30 08:28] VITALS: RESP 18; TEMP 97.6
[2021-10-30] MEDS ORDERED: diazePAM 5 MG TAB PO STA (08:39)
[2021-10-30] MEDS ORDERED: METHOTREXATE SODIUM (PF) 25 MG/ML 2 ML VIAL INTRATHECA ONE (09:00)
--- NOTE | 2021-10-30 11:48 | FL ---
EXAMINATION TYPE: FL guided lumbar puncture LP DATE OF EXAM: 10/30/2021 COMPARISON: CT abdomen dated 07/14/2021 INDICATION: Intrathecal injection of chemotherapy. Diffuse large cell lymphoma. TECHNIQUE: Fluoroscopic time of 57 seconds. One image in PACS. Informed consent was obtained from the patient after describing the details of the procedure and the possible risks. While the patient is in the prone position and under complete sterile conditions, 1% Lidocaine was gi darin to the skin and underlying tissue opposite L4-5 level slightly to the left of the midline. A spi nal needle was used to target the thecal sac at that level utilizing a left sublaminar approach. A to robin of about 3 cc of clear CSF were collected and placed in the collecting tube. This is followed by injection of the chemotherapeutic agent by the oncology nurse followed by a salin e flush. The needle was then removed. The patient tolerated the procedure well with no immediate complication. The patient will be kept un cyndee observation for 4 hours, then the patient will be discharged home if no complication. The CSF michelle ples were sent for analysis immediately after the procedure was performed. CONCLUSION: Uneventful fluoroscopic guided diagnostic lumbar puncture followed by intrathecal injection of chemot herapy as described above.
[2021-10-30 13:47] VITALS: BP 135/83; PULSE 110
--- NOTE | 2021-10-30 22:50 | P.PCN ---
Date of Procedure: 10/30/21 Preoperative Diagnosis: DLBCL, extranodal involvement Postoperative Diagnosis: DLBCL extranodal involvement Procedure(s) Performed: LP performed by Interventional Radiologist. Prophylactic Intrathecal chemotherapy administration Estimated Blood Loss (ml): 0 IV fluids (ml): 0 Urine output (ml): 0 Pathology: other (cytology and flow cytometry) Condition: stable Disposition: same day Indications for Procedure: DLBCL with extranodal involvement Description of Procedure: LP performed by Interventional Radiologist, 3cc CSF removed. 12mg of preservative free methotrexate diluted with sterile normal saline to a volume of 2.4 cc was instilled slowly over 2 minutes. The catheter was the flushed with 0.6cc of sterile NS in a latex free syringe to replace the 3cc CSF removed. Pt tolerated procedure well.
== END 2021-10-30 13:58 | disposition home or self-care (01) ==
LOC: RADPROMAIN 07:53
PROVIDERS: ATTEND Internal Medicine Hematology & Oncology
DX: C83.33 Diffuse large B-cell lymphoma, intra-abdominal lymph nodes (principal)
CPT/HCPCS: 88108; 96450; 62328; J2001; J9260

== ENCOUNTER 2021-10-31 08:59 | Inpatient (IN) | payer BC ==
[2021-10-31] MEDS ORDERED: ONDANSETRON 4 MG/2 ML VIAL IVP PRN (13:00)
[2021-10-31] MEDS ORDERED: SENNOSIDES-DOCUSATE SODIUM 1 EACH TAB PO PRN (14:13)
[2021-10-31] MEDS ORDERED: LORazepam 0.5 MG TAB PO PRN (14:13)
[2021-10-31] MEDS ORDERED: ACETAMINOPHEN TAB 500 MG TAB PO PRN (14:13)
[2021-10-31] MEDS ORDERED: ONDANSETRON ODT 4 MG TAB PO PRN (14:13)
[2021-10-31 15:20] LABS: ALT 36 U/L (4-49); AST 60 U/L (17-59); African American GFR (CKD) >90 (>60 ml/min/1.73 sqM); Albumin 3.5 g/dL (3.5-5.0); Albumin/Globulin Ratio 1.5; Alkaline Phosphatase 153 U/L (38-126); Anion Gap 10 mmol/L; Blood Urea Nitrogen 13 mg/dL (9-20); Calcium 8.5 mg/dL (8.4-10.2); Carbon Dioxide 21 mmol/L (22-30); Chloride 103 mmol/L (98-107); Globulin 2.3 g/dL; Glucose 163 mg/dL (74-99); Non-African American GFR(CKD) >90 (>60 ml/min/1.73 sqM); Phosphorus 3.6 mg/dL (2.5-4.5); Potassium 4.7 mmol/L (3.5-5.1); Sodium 134 mmol/L (137-145); Total Bilirubin 0.4 mg/dL (0.2-1.3); Total Protein 5.8 g/dL (6.3-8.2); Uric Acid 3.3 mg/dL (3.5-8.5)
[2021-10-31 15:22] LABS: Anisocytosis Moderate; Basophils % (A) 0 %; Eosinophils % (A) 0 %; HCT 31.7 % (39.0-53.0); HGB 10.2 gm/dL (13.0-17.5); Hypochromasia Slight; Lymphocytes # (A) 0.2 k/uL (1.0-4.8); Lymphocytes % (A) 1 %; MCH 27.2 pg (25.0-35.0); MCHC 32.2 g/dL (31.0-37.0); MCV 84.5 fL (80.0-100.0); Microcytosis Slight; Monocytes # (A) 0.5 k/uL (0-1.0); Monocytes % (A) 3 %; Neutrophils # (A) 14.7 k/uL (1.3-7.7); Neutrophils % (A) 94 %; RBC 3.75 m/uL (4.30-5.90); RDW 20.9 % (11.5-15.5); WBC 15.6 k/uL (3.8-10.6)
[2021-10-31] MEDS: ETOPOSIDE 180 MG in SODIUM CHLORIDE 0.9% 500 ML 500 ML IV SCH (15:43)
[2021-10-31] MEDS: SODIUM CHLORIDE 0.9% 1,000 ML IV SCH ×2 (15:43→20:24)
[2021-10-31 16:00] LABS: Platelet Count 140 k/uL (150-450)
[2021-10-31] MEDS ORDERED: HYDROcodone/APAP 5-325MG 1 EACH TAB PO PRN (17:25)
--- NOTE | 2021-10-31 17:48 | P.HPIM ---
History of Present Illness H&P Date: 10/31/21 Chief Complaint: Admit for CIVI ICE Mr. Santana is a pleasant male pt of Dr. Wells, initially seen in consult at [facility] 07/15/21. The patient had developed pain in the right upper abdomen that had started a few days prior to admission. He had sought attention with his PCP, and was started on antibiotic for possible cholecystitis. Symptoms improved but, he then developed black stools. He went to ER. CT AP revealed a large retroperitoneal mass anterior to the aorta about 9.3 x 7 x 8 cm which appeared to be adherent to the anterior aorta. This was also encasing the origin of the inferior mesenteric artery. Additional enlarged lymph nodes were noted at the level of the aorta and inferior to the vena cava. There was also a large mass that seemed to be arising from the lower pole of the right kidney and extending inferiorly to the cecum. On examination no palpable adenopathy. CT chest was negative. He had an EGD, that showed no significant findings other than mild antral inflammation and mild chronic gastritis and chronic esophagitis on pathology. He had biopsy of the right pararenal mass. Preliminary pathology on the pararenal mass was diffuse large B-cell lymphoma. Subsequent testing was negative for double/triple hip pathology. Patient was admitted early July 2021 with new onset A. fib and fever. Workup was negative, patient was placed on aspirin by Cardiology. [place] to be more likely tumor fever. Patient was started on R-CHOP in July and had 3 cycles. Scan after the third cycle only showed a partial response therefore, the regimen was switched to R-ICE. He had his first cycle last week of September. He received #4/4 IT chemo 10/30. He is admitted now for cycle #2 R-ICE (rituxan given in office earlier today). On admit patient denies fevers, chills, some mild oral irritation, appetite is fair to good, no nausea or vomiting, shortness of breath, cough, chest pain, palpitations, abdominal pain or cramping, he recently had a bout with constipation but, the Senokot/docusate works well. After his first cycle he did have some trace blood streaks in his urine on several occasions, denied gross hematuria, suprapubic pain or dysuria. No swelling in the legs, he is independently ambulatory, energy levels are fair to good, no lymphadenopathy. Review of Systems 14 point review of systems is negative Past Medical History Past Medical History: Cancer, GERD/Reflux, Hyperlipidemia, Hypertension, Pneumonia Additional Past Medical History / Comment(s): R upper abdominal pain/black stool and had cat scans that showed large retroperitoneal mass anterior to abdominal aorta and R kidney mass lower pole, pt has been diagnosed with large B cell lymphoma. Other hx: 08/03/21 Paroxysmal afib with RVR/fever, diverticulitis. History of Any Multi-Drug Resistant Organisms: None Reported Past Surgical History: Orthopedic Surgery, Tonsillectomy Additional Past Surgical History / Comment(s): R pararenal mass biopsy, port a cath, R middle finger reattached, EGD, colonoscopy x 3, finger reattatchment Past Anesthesia/Blood Transfusion Reactions: No Reported Reaction Past Psychological History: Anxiety, Depression Additional Psychological History / Comment(s): Pt resides alone. He is independent. Smoking Status: Never smoker Past Alcohol Use History: Occasional Past Drug Use History: None Reported - Past Family History Mother Family Medical History: Cancer Additional Family Medical History / Comment(s): Mother from breast cancer at the age of 45yrs. Father Family Medical History: AFIB, Coronary Artery Disease (CAD), Myocardial Infarction ([place]) Additional Family Medical History / Comment(s): CABG Sister(s) Family Medical History: Cancer Additional Family Medical History / Comment(s): breast cancer Medications and Allergies Home Medications Medication Instructions Recorded Confirmed Type Acetaminophen [Tylenol Extra 500 mg PO Q6H PRN 07/25/21 10/31/21 History Strength] Cholecalciferol [Vitamin D3 (25 50 mcg PO DAILY 07/25/21 10/31/21 History Mcg = 1000 Iu)] allopurinoL [Zyloprim] 300 mg PO DAILY 30 Days #30 tab 08/05/21 10/31/21 Rx Pantoprazole Sodium [Protonix] 40 mg PO DAILY 08/16/21 10/31/21 History Sennosides-Docusate Sodium 1 tab PO DAILY PRN 08/16/21 10/31/21 History [Senokot-S] Desvenlafaxine [Pristiq ER] 100 mg PO DAILY 10/16/21 10/31/21 History LORazepam [Ativan] 0.5 mg PO Q6H PRN 10/16/21 10/31/21 History Metoprolol Succinate (ER) [Toprol 50 mg PO DAILY 10/16/21 10/31/21 History XL] Ondansetron Odt [Zofran ODT] 4 mg PO Q6H PRN 10/16/21 10/31/21 History Acyclovir 400 mg PO BID #60 tablet 10/18/21 10/31/21 Rx Levofloxacin [Levaquin] 500 mg PO DAILY 20 Days #20 tab 10/18/21 10/31/21 Rx Nystatin 100,000 Unit/ml Susp 4 ml PO QID #340 ml 10/18/21 10/31/21 Rx [Mycostatin Oral Susp] HYDROcodone/APAP 5-325MG [[place] 1 tab PO Q4HR PRN 3 Days #18 tab 10/31/21 Rx 5-325] Allergies Allergy/AdvReac Type Severity Reaction Status Date / Time bee venom protein (honey bee) Allergy Swelling Verified 10/31/21 15:01 at sting site Penicillins Allergy Rash/Hives Verified 10/31/21 15:01 all over body Physical Exam Vitals: Vital Signs Temp Pulse Resp BP Pulse Ox 10/31/21 15:51 98.2 F 96 20 120/79 96 10/31/21 14:13 55 L 20 131/86 97 Intake and Output 10/31/21 10/31/21 10/31/21 06:59 14:59 22:59 Other: Weight 78.3 kg - Constitutional General appearance: average body habitus, cooperative, no acute distress - EENT Eyes: anicteric sclerae, EOMI ENT: hearing grossly normal, normal oropharynx - Neck Neck: no lymphadenopathy - Respiratory Respiratory: bilateral: CTA - Cardiovascular Rhythm: regular Heart sounds: normal: S1, S2 Abnormal Heart Sounds: no systolic murmur, no diastolic murmur, no rub, no S3 Gallop, no S4 Gallop, no click, no other leg Peripheral Edema: bilateral: None - Gastrointestinal General gastrointestinal: no absent bowel sounds, no decreased bowel sounds, no distended, no hepatomegaly, no hyperactive bowel sounds, normal bowel sounds, no organomegaly, no rigid, no scaphoid, soft, no splenomegaly, no tenderness, no umbilical hernia, no ventral hernia - Integumentary Integumentary: normal - Neurologic Neurologic: CNII-XII intact - Musculoskeletal Musculoskeletal: strength equal bilaterally - Psychiatric Psychiatric: A&O x's 3, appropriate affect, intact judgment & insight Results CBC & Chem 7: 10/31/21 14:31 10/31/21 14:31 Labs: Abnormal Lab Results - Last 24 Hours (Table) 10/31/21 10/31/21 Range/Units 14:31 14:31 WBC 15.6 H (3.8-10.6) k/uL RBC 3.75 L (4.30-5.90) m/uL Hgb 10.2 L (13.0-17.5) gm/dL Hct 31.7 L (39.0-53.0) % RDW 20.9 H (11.5-15.5) % Plt Count 140 L D (150-450) k/uL Neutrophils # 14.7 H (1.3-7.7) k/uL Lymphocytes # 0.2 L (1.0-4.8) k/uL Sodium 134 L (137-145) mmol/L Carbon Dioxide 21 L (22-30) mmol/L Glucose 163 H (74-99) mg/dL Uric Acid 3.3 L (3.5-8.5) mg/dL AST 60 H (17-59) U/L Alkaline Phosphatase 153 H (38-126) U/L Total Protein 5.8 L (6.3-8.2) g/dL Thrombosis Risk Factor Assmnt - DVT/VTE Prophylaxis DVT/VTE Prophylaxis: Pharmacologic Prophylaxis ordered - Choose All That Apply Any of the Below Risk Factors Present?: Yes Each Factor Represents 1 point: Age 41-60 years, Obesity (BMI >25) Other Risk Factors: Yes Each Risk Factor Represents 2 Points: Malignancy Other congenital or acquired thrombophilia - If yes, enter type in comment: No Thrombosis Risk Factor Assessment Total Risk Factor Score: 4 Thrombosis Risk Factor Assessment Level: Moderate Risk Assessment and Plan (1) Large B-cell lymphoma Current Visit: Yes Status: Acute Priority: High Code(s): C85.10 - UNSPECIF IED B-CELL LYMPHOMA, UNSPECIFIED SITE SNOMED Code(s): 867651531 Plan: Admit to oncology unit for cycle 2 of R-ICE. G-CSF scheduled for Thursday in the office. Follow-up appointment also documented in the chart. PET scan will be scheduled when patient is seen in the office. Home medications reconciled Supportive medications ordered CBC, CMP daily Telemetry for the first 24 hours inpatient Early and frequent ambulation encouraged DVT and GI prophylaxis Patient did complain of musculoskeletal pain post G-CSF administration. He is using the Claritin. A small prescription of [place] is being provided for severe pain. Prescription has been sent.
[2021-10-31] MEDS: NYSTATIN 100,000 UNIT/ML SUSP 500,000 UNIT/5 ML CUP PO SCH ×2 (18:28→20:23)
[2021-10-31] MEDS: SENNOSIDES-DOCUSATE SODIUM 1 EACH TAB PO SCH (20:23)
[2021-10-31] MEDS: ACYCLOVIR 200 MG CAP PO SCH (20:24)
[2021-10-31] MEDS: SALT AND SODA MOUTHWASH 1,000 ML PO SCH (22:18)
[2021-11-01] MEDS: SALT AND SODA MOUTHWASH 1,000 ML PO SCH ×4 (07:01→19:44)
[2021-11-01 09:10] LABS: HCT 26.4 % (39.6-50.0); HGB 8.3 g/dL (13.0-17.0); MCH 26.4 pg (27.0-32.0); MCHC 31.4 g/dL (32.0-37.0); MCV 84.1 fL (80.0-97.0); NRBC Per 100 WBC 0 /100 WBCS (0.0-0.0); Platelet Count 154 X 10*3/uL (140-440); RBC 3.14 X 10*6/uL (4.40-5.60); RDW 21.1 % (11.5-14.5)
[2021-11-01] MEDS: allopurinoL 300 MG TAB PO SCH (09:31)
[2021-11-01] MEDS: DESVENLAFAXINE SUCCINATE 50 MG TAB.ER.24H PO SCH (09:31)
[2021-11-01] MEDS: PANTOPRAZOLE 40 MG TABLET PO SCH (09:31)
[2021-11-01] MEDS: METOPROLOL SUCCINATE (ER) 50 MG TAB.ER.24H PO SCH (09:31)
[2021-11-01] MEDS: LEVOFLOXACIN 500 MG TAB PO SCH (09:31)
[2021-11-01] MEDS: CHOLECALCIFEROL 25 MCG (1000 IU) TABLET PO SCH (09:31)
[2021-11-01] MEDS: ACYCLOVIR 200 MG CAP PO SCH ×2 (09:31→22:04)
[2021-11-01] MEDS: NYSTATIN 100,000 UNIT/ML SUSP 500,000 UNIT/5 ML CUP PO SCH ×4 (09:32→22:03)
[2021-11-01 09:34] LABS: ALT 48 U/L (10-49); AST 52 U/L (14-35); African American GFR (CKD) 126.7 (60.0-200.0); Albumin 3.2 g/dL (3.8-4.9); Albumin/Globulin Ratio 1.68 (1.60-3.17); Alkaline Phosphatase 146 U/L (41-126); BUN/Creat Ratio 26.17 Ratio (12.00-20.00); Blood Urea Nitrogen 15.7 mg/dL (9.0-27.0); Calcium 8.3 mg/dL (8.7-10.3); Carbon Dioxide 19.1 mmol/L (20.0-27.5); Chloride 105 mmol/L (96-109); Globulin 1.9 g/dL (1.6-3.3); Glucose 103 mg/dL (70-110); Non-African American GFR(CKD) 109.3 (60.0-200.0); Phosphorus 3.3 mg/dL (2.4-5.1); Potassium 4.2 mmol/L (3.5-5.5); Sodium 135 mmol/L (135-145); Total Bilirubin <0.15 mg/dL (0.30-1.20); Total Protein 5.1 g/dL (6.2-8.2); Uric Acid 3.8 mg/dL (3.7-8.7)
[2021-11-01 11:19] LABS: Basophils # (A) 0.04 X 10*3/uL (0.00-0.10); Basophils % (A) 0.2 %; Eosinophils # (A) 0 X 10*3/uL (0.04-0.35); Eosinophils % (A) 0 %; Immature Grans, Automated 4.2 %; Lymphocytes # (A) 0.43 X 10*3/uL (0.90-5.00); Lymphocytes % (A) 2.1 %; Monocytes # (A) 1.65 X 10*3/uL (0.20-1.00); Monocytes % (A) 8.1 %; Neutrophils # (A) 17.32 X 10*3/uL (1.80-7.70); Neutrophils % (A) 85.4 %
[2021-11-01 11:20] LABS: RBC Morphology NORMAL
[2021-11-01] MEDS: SODIUM CHLORIDE 0.9% 1,000 ML IV SCH ×3 (12:02→19:44)
[2021-11-01 14:09] VITALS: BMI 29.6
--- NOTE | 2021-11-01 14:32 | P.PN ---
Subjective Progress Note Date: 11/01/21 Principal diagnosis: timed Chemo Day 2 of chemotherapy of cycle 2 Hemoglobin did decrease to 8.3, likely dilution as well as chemo. No evidence of bleeding Objective - Vital Signs Vital signs: Vital Signs Temp 98.1 F 11/01/21 11:46 Pulse 92 11/01/21 11:46 Resp 20 11/01/21 11:46 BP 134/82 11/01/21 11:46 Pulse Ox 97 11/01/21 11:46 Intake & Output 10/31/21 11/01/21 11/01/21 18:59 06:59 18:59 Intake Total 1500 180 Balance 1500 180 Weight 78.3 kg 78.3 kg Intake: Intake, IV Titration 1500 Amount Sodium Chloride 0.9% 1, 1500 000 ml @ 125 mls/hr IV . Q8H [facility] Rx#:[id number] Oral 180 Other: Voiding Method Toilet Toilet Toilet # Voids 2 3 - Exam Constitutional General appearance: average body habitus, cooperative, no acute distress - EENT Eyes: anicteric sclerae, EOMI ENT: hearing grossly normal, normal oropharynx - Neck Neck: no lymphadenopathy - Respiratory Respiratory: bilateral: CTA - Cardiovascular Rhythm: regular Heart sounds: normal: S1, S2 Abnormal Heart Sounds: no systolic murmur, no diastolic murmur, no rub, no S3 Gallop, no S4 Gallop, no click, no other leg Peripheral Edema: bilateral: None - Gastrointestinal General gastrointestinal: no absent bowel sounds, no decreased bowel sounds, no distended, no hepatomegaly, no hyperactive bowel sounds, normal bowel sounds, no organomegaly, no rigid, no scaphoid, soft, no splenomegaly, no tenderness, no umbilical hernia, no ventral hernia - Integumentary Integumentary: normal - Neurologic Neurologic: CNII-XII intact - Musculoskeletal Musculoskeletal: strength equal bilaterally - Psychiatric Psychiatric: A&O x's 3, appropriate affect, intact judgment & insight - Labs CBC & Chem 7: 11/01/21 05:40 11/01/21 05:40 Labs: Abnormal Lab Results - Last 24 Hours (Table) 10/31/21 10/31/21 11/01/21 Range/Units 14:31 14:31 05:40 WBC 15.6 H 20.30 H (3.8-10.6) k/uL RBC 3.75 L 3.14 L (4.30-5.90) m/uL Hgb 10.2 L 8.3 L (13.0-17.5) gm/dL Hct 31.7 L 26.4 L (39.0-53.0) % MCH 26.4 L (27.0-32.0) pg MCHC 31.4 L (32.0-37.0) g/dL RDW 20.9 H 21.1 H (11.5-15.5) % Plt Count 140 L D (150-450) k/uL Immature Gran # 0.86 H (0.00-0.04) X 10*3/uL Neutrophils # 14.7 H 17.32 H (1.3-7.7) k/uL Lymphocytes # 0.2 L 0.43 L (1.0-4.8) k/uL Monocytes # 1.65 H (0.20-1.00) X 10*3/uL Eosinophils # 0 L (0.04-0.35) X 10*3/uL Sodium 134 L (137-145) mmol/L Carbon Dioxide 21 L (22-30) mmol/L BUN/Creatinine Ratio (12.00-20.00) Ratio Glucose 163 H (74-99) mg/dL Uric Acid 3.3 L (3.5-8.5) mg/dL Calcium (8.7-10.3) mg/dL Total Bilirubin (0.30-1.20) mg/dL AST 60 H (17-59) U/L Alkaline Phosphatase 153 H (38-126) U/L Total Protein 5.8 L (6.3-8.2) g/dL Albumin (3.8-4.9) g/dL 11/01/21 Range/Units 05:40 WBC (3.8-10.6) k/uL RBC (4.30-5.90) m/uL Hgb (13.0-17.5) gm/dL Hct (39.0-53.0) % MCH (27.0-32.0) pg MCHC (32.0-37.0) g/dL RDW (11.5-15.5) % Plt Count (150-450) k/uL Immature Gran # (0.00-0.04) X 10*3/uL Neutrophils # (1.3-7.7) k/uL Lymphocytes # (1.0-4.8) k/uL Monocytes # (0.20-1.00) X 10*3/uL Eosinophils # (0.04-0.35) X 10*3/uL Sodium (137-145) mmol/L Carbon Dioxide 19.1 L (22-30) mmol/L BUN/Creatinine Ratio 26.17 H (12.00-20.00) Ratio Glucose (74-99) mg/dL Uric Acid (3.5-8.5) mg/dL Calcium 8.3 L (8.7-10.3) mg/dL Total Bilirubin <0.15 L (0.30-1.20) mg/dL AST 52 H (17-59) U/L Alkaline Phosphatase 146 H (38-126) U/L Total Protein 5.1 L (6.3-8.2) g/dL Albumin 3.2 L (3.8-4.9) g/dL Assessment and Plan Plan: Assessment and Plan (1) Large B-cell lymphoma Current Visit: Yes Status: Acute Priority: High Code(s): C85.10 - UNSPECIFIED B-CELL LYMPHOMA, UNSPECIFIED SITE SNOMED Code(s): 029171400 Plan: Continue Day 2 , cycle 2 of R-ICE. G-CSF scheduled for Thursday in the office. Follow-up appointment also documented in the chart. PET scan will be scheduled when patient is seen in the office. Supportive medications to continue and prophylaxic abc and anti-virals on discharge CBC, CMP daily Telemetry for the first 24 hours inpatient Early and frequent ambulation encouraged DVT and GI prophylaxis Patient did complain of musculoskeletal pain post G-CSF administration. He is using the Claritin. A small prescription of [place] is being provided for severe pain. Prescription has been sent on Dr. Castillo: I have completed the full history and physical and developed the above impression and plan, agree with dictation, dictated as a scribe. .
[2021-11-01] MEDS: ONDANSETRON 16 MG in SODIUM CHLORIDE 0.9% 50 ML IVPB SCH (14:58)
[2021-11-01] MEDS: FAMOTIDINE 20 MG/2 ML VIAL IV SCH (14:58)
[2021-11-01] MEDS: DEXAMETHASONE SOD PHOSPHATE 10 MG/ML 1 ML VIAL IV SCH (14:58)
[2021-11-01] MEDS ORDERED: CARBOplatin 600 MG in SODIUM CHLORIDE 0.9% 250 ML IV ONE (16:00)
[2021-11-01] MEDS: ETOPOSIDE 180 MG in SODIUM CHLORIDE 0.9% 500 ML 500 ML IV SCH (16:10)
[2021-11-01] MEDS ORDERED: SODIUM CHLORIDE 0.9% IV ONE ×2 (17:00)
[2021-11-01] MEDS ORDERED: IFOSFAMIDE IV ONE (17:00)
[2021-11-01] MEDS ORDERED: MESNA IV ONE (17:00)
[2021-11-01] MEDS: SENNOSIDES-DOCUSATE SODIUM 1 EACH TAB PO SCH (22:04)
[2021-11-02] MEDS: SALT AND SODA MOUTHWASH 1,000 ML PO SCH ×4 (01:09→15:39)
[2021-11-02] MEDS: SODIUM CHLORIDE 0.9% 1,000 ML IV SCH ×2 (03:57→11:51)
[2021-11-02 07:03] LABS: Prothrombin Time 11.2 sec (9.0-12.0)
[2021-11-02 07:11] LABS: Partial Thromboplastin Time 19.4 sec (22.0-30.0)
[2021-11-02] MEDS: ACYCLOVIR 200 MG CAP PO SCH (08:00)
[2021-11-02] MEDS: LEVOFLOXACIN 500 MG TAB PO SCH (08:00)
[2021-11-02] MEDS: CHOLECALCIFEROL 25 MCG (1000 IU) TABLET PO SCH (08:00)
[2021-11-02] MEDS: allopurinoL 300 MG TAB PO SCH (08:00)
[2021-11-02] MEDS: NYSTATIN 100,000 UNIT/ML SUSP 500,000 UNIT/5 ML CUP PO SCH ×3 (08:01→17:18)
[2021-11-02] MEDS: METOPROLOL SUCCINATE (ER) 50 MG TAB.ER.24H PO SCH (08:01)
[2021-11-02] MEDS: PANTOPRAZOLE 40 MG TABLET PO SCH (08:01)
[2021-11-02] MEDS: DESVENLAFAXINE SUCCINATE 50 MG TAB.ER.24H PO SCH (08:01)
[2021-11-02 09:23] LABS: Albumin 3.6 g/dL (3.8-4.9); Albumin/Globulin Ratio 1.81 (1.60-3.17); Anion Gap 10.4 mmol/L (10.00-18.00); BUN/Creat Ratio 25.33 Ratio (12.00-20.00); Blood Urea Nitrogen 15.4 mg/dL (9.0-27.0); Calcium 8.5 mg/dL (8.7-10.3); Carbon Dioxide 19.8 mmol/L (20.0-27.5); Magnesium 1.9 mg/dL (1.5-2.4); Non-African American GFR(CKD) 108.7 (60.0-200.0); Phosphorus 3.3 mg/dL (2.4-5.1); Potassium 4.4 mmol/L (3.5-5.5); Total Bilirubin 0.3 mg/dL (0.30-1.20); Total Protein 5.5 g/dL (6.2-8.2); Uric Acid 3.6 mg/dL (3.7-8.7)
[2021-11-02 09:43] LABS: HCT 27.6 % (39.6-50.0); HGB 8.8 g/dL (13.0-17.0); MCH 26.6 pg (27.0-32.0); MCHC 31.9 g/dL (32.0-37.0); MCV 83.4 fL (80.0-97.0); NRBC Per 100 WBC 0 /100 WBCS (0.0-0.0); Platelet Count 236 X 10*3/uL (140-440); RBC 3.31 X 10*6/uL (4.40-5.60); WBC 15.19 X 10*3/uL (4.50-10.00)
[2021-11-02 10:52] LABS: Basophils # (A) 0.02 X 10*3/uL (0.00-0.10); Basophils % (A) 0.1 %; Eosinophils # (A) 0 X 10*3/uL (0.04-0.35); Eosinophils % (A) 0 %; Immature Grans, Automated 1.7 %; Lymphocytes # (A) 0.16 X 10*3/uL (0.90-5.00); Lymphocytes % (A) 1.1 %; Monocytes # (A) 0.22 X 10*3/uL (0.20-1.00); Monocytes % (A) 1.4 %; Neutrophils # (A) 14.53 X 10*3/uL (1.80-7.70); Neutrophils % (A) 95.7 %
[2021-11-02] MEDS: FAMOTIDINE 20 MG/2 ML VIAL IV SCH (15:35)
[2021-11-02] MEDS: DEXAMETHASONE SOD PHOSPHATE 10 MG/ML 1 ML VIAL IV SCH (15:35)
[2021-11-02] MEDS: ONDANSETRON 16 MG in SODIUM CHLORIDE 0.9% 50 ML IVPB SCH (15:36)
[2021-11-02] MEDS: ETOPOSIDE 180 MG in SODIUM CHLORIDE 0.9% 500 ML 500 ML IV SCH (16:08)
--- NOTE | 2021-11-02 20:26 | P.DS ---
Providers Date of admission: 10/31/21 13:02 Expected date of discharge: 11/02/21 Attending physician: Woodrow Wells Primary care physician: [facility] [place] [facility] Course: Mr. Santana is a very pleasant 61 yo male with relapsed NHL, admitted for cycle 2 of RICE. Tolerated treatment well. Discharged in stable conditions with instructions to follow up for repeat labs. On day of discharge, vital signs stable, labs stable, alert and oriented x3. Patient Condition at Discharge: Stable Plan - Discharge Summary Discharge Rx Participant: No New Discharge Prescriptions: New HYDROcodone/APAP 5-325MG [[place] 5-325] 1 tab PO Q4HR PRN 3 Days #18 tab PRN Reason: Pain No Action Cholecalciferol [Vitamin D3 (25 Mcg = 1000 Iu)] 50 mcg PO DAILY Acetaminophen [Tylenol Extra Strength] 500 mg PO Q6H PRN PRN Reason: Pain Pantoprazole Sodium [Protonix] 40 mg PO DAILY Ondansetron Odt [Zofran ODT] 4 mg PO Q6H PRN PRN Reason: Nausea LORazepam [Ativan] 0.5 mg PO Q6H PRN PRN Reason: Anxiety/Insomnia Metoprolol Succinate (ER) [Toprol XL] 50 mg PO DAILY Desvenlafaxine [Pristiq ER] 100 mg PO DAILY Nystatin 100,000 Unit/ml Susp [Mycostatin Oral Susp] 4 ml PO QID #340 ml allopurinoL [Zyloprim] 300 mg PO DAILY 30 Days #30 tab Sennosides-Docusate Sodium [Senokot-S] 1 tab PO DAILY PRN PRN Reason: Constipation Acyclovir 400 mg PO BID #60 tablet Levofloxacin [Levaquin] 500 mg PO DAILY 20 Days #20 tab Discharge Medication List Acetaminophen [Tylenol Extra Strength] 500 mg PO Q6H PRN 07/25/21 [History] Cholecalciferol [Vitamin D3 (25 Mcg = 1000 Iu)] 50 mcg PO DAILY 07/25/21 [History] allopurinoL [Zyloprim] 300 mg PO DAILY 30 Days #30 tab 08/05/21 [Rx] Pantoprazole Sodium [Protonix] 40 mg PO DAILY 08/16/21 [History] Sennosides-Docusate Sodium [Senokot-S] 1 tab PO DAILY PRN 08/16/21 [History] Desvenlafaxine [Pristiq ER] 100 mg PO DAILY 10/16/21 [History] LORazepam [Ativan] 0.5 mg PO Q6H PRN 10/16/21 [History] Metoprolol Succinate (ER) [Toprol XL] 50 mg PO DAILY 10/16/21 [History] Ondansetron Odt [Zofran ODT] 4 mg PO Q6H PRN 10/16/21 [History] Acyclovir 400 mg PO BID #60 tablet 10/18/21 [Rx] Levofloxacin [Levaquin] 500 mg PO DAILY 20 Days #20 tab 10/18/21 [Rx] Nystatin 100,000 Unit/ml Susp [Mycostatin Oral Susp] 4 ml PO QID #340 ml [Rx] HYDROcodone/APAP 5-325MG [[place] 5-325] 1 tab PO Q4HR PRN 3 Days #18 tab 10/31/21 [Rx] Follow up Appointment(s)/Referral(s): Woodrow Wells MD [STAFF PHYSICIAN] - 11/04/21 10:00 am (This appointment is at the [facility], 2nd floor. This is for the "booster shot") Tran Alcala NPC [Nurse Practitioner] - 11/07/21 8:45 am Patient Instructions/Handouts: Non-Hodgkin Lymphoma (DC), Intravenous Chemotherapy (DC) Activity/Diet/Wound Care/Special Instructions: Activity as tolerated Diet as tolerated [place] fluid intake Temperature monitoring. Patient is to contact Oncologist office immediately with a temperature 100.5 Fahrenheit or higher Discharge Disposition: HOME SELF-CARE
[2021-11-02 20:52] VITALS: BP 144/82; PULSE 94; RESP 16; TEMP 97.8
== END 2021-11-02 20:53 | disposition home or self-care (01) | DRG 847 ==
LOC: 5NMEDONC 13:02
PROVIDERS: ADMIT Internal Medicine Hematology & Oncology; ATTEND Internal Medicine Hematology & Oncology
DX: Z51.11 Encounter for antineoplastic chemotherapy (principal); C83.38 Diffuse large B-cell lymphoma, lymph nodes of multiple sites; E78.5 Hyperlipidemia, unspecified; F32.A Depression, unspecified; F41.9 Anxiety disorder, unspecified; I10 Essential (primary) hypertension; I48.0 Paroxysmal atrial fibrillation; K21.00 Gastro-esophageal reflux disease with esophagitis, without bleeding; K29.50 Unspecified chronic gastritis without bleeding; Z79.899 Other long term (current) drug therapy; Z88.0 Allergy status to penicillin; Z91.030 Bee allergy status; Z80.3 Family history of malignant neoplasm of breast; Z82.49 Family history of ischemic heart disease and other diseases of the circulatory system
CPT/HCPCS: 80053; 83615; 83735; 84100; 84550; 85025; 85610; 85730; 93005

== ENCOUNTER 2021-12-29 14:31 | Inpatient (IN) | payer BC ==
[2021-12-29] MEDS ORDERED: ASPIRIN 81 MG PO STA (14:52)
[2021-12-29] MEDS ORDERED: NITROGLYCERIN SL TABS 0.4 MG TAB SUBLINGUAL STA ×3 (14:52)
--- NOTE | 2021-12-29 14:54 | ED ---
General Adult HPI - General Chief complaint: Chest Pain Stated complaint: Chest Pain Time Seen by Provider: 12/29/21 14:44 Source: patient, RN notes reviewed Mode of arrival: wheelchair Limitations: no limitations - History of Present Illness Initial comments: Patient is a pleasant 61 year old male presenting to the emergency department chest discomfort. Onset of symptoms was this morning. Discomfort is been persistent. Discomfort is sharp, left chest. Patient does have a little bit shortness of breath. No dyspnea. No diaphoresis. Patient has had subjective fevers the past couple of days and mild cough. - Related Data Home Medications Medication Instructions Recorded Confirmed Acetaminophen [Tylenol Extra 500 mg PO Q6H PRN 07/25/21 10/31/21 Strength] Cholecalciferol [Vitamin D3 (25 50 mcg PO DAILY 07/25/21 10/31/21 Mcg = 1000 Iu)] Pantoprazole Sodium [Protonix] 40 mg PO DAILY 08/16/21 10/31/21 Sennosides-Docusate Sodium 1 tab PO DAILY PRN 08/16/21 10/31/21 [Senokot-S] Desvenlafaxine [Pristiq ER] 100 mg PO DAILY 10/16/21 10/31/21 LORazepam [Ativan] 0.5 mg PO Q6H PRN 10/16/21 10/31/21 Metoprolol Succinate (ER) [Toprol 50 mg PO DAILY 10/16/21 10/31/21 XL] Ondansetron Odt [Zofran ODT] 4 mg PO Q6H PRN 10/16/21 10/31/21 Previous Rx's Medication Instructions Recorded allopurinoL [Zyloprim] 300 mg PO DAILY 30 Days #30 tab 08/05/21 Acyclovir [Zovirax] 400 mg PO BID #60 tablet 10/18/21 Levofloxacin [Levaquin] 500 mg PO DAILY 20 Days #20 tab 10/18/21 Nystatin 100,000 Unit/ml Susp 4 ml PO QID #340 ml 10/18/21 [Mycostatin Oral Susp] HYDROcodone/APAP 5-325MG [[place] 1 tab PO Q4HR PRN 3 Days #18 tab 10/31/21 5-325] Allergies Allergy/AdvReac Type Severity Reaction Status Date / Time bee venom protein (honey bee) Allergy Swelling Verified 12/29/21 14:36 at sting site Penicillins Allergy Rash/Hives Verified 12/29/21 14:36 all over body Review of Systems ROS Statement: Those systems with pertinent positive or pertinent negative responses have been documented in the HPI. ROS Other: All systems not noted in ROS Statement are negative. Constitutional: Denies: fever Eyes: Denies: eye pain ENT: Denies: ear pain Respiratory: Reports: as per HPI, dyspnea. Denies: cough Cardiovascular: Reports: as per HPI, chest pain Endocrine: Denies: fatigue Gastrointestinal: Denies: abdominal pain Genitourinary: Denies: urgency Musculoskeletal: Denies: back pain Skin: Denies: rash Neurological: Denies: weakness Past Medical History Past Medical History: Cancer, GERD/Reflux, Hyperlipidemia, Hypertension, Pneumonia Additional Past Medical History / Comment(s): R upper abdominal pain/black stool and had cat scans that showed large retroperitoneal mass anterior to abdominal aorta and R kidney mass lower pole, pt has been diagnosed with large B cell lymphoma. Other hx: 08/03/21 Paroxysmal afib with RVR/fever, diverticulitis. History of Any Multi-Drug Resistant Organisms: None Reported Past Surgical History: Orthopedic Surgery, Tonsillectomy Additional Past Surgical History / Comment(s): R pararenal mass biopsy, port a cath, R middle finger reattached, EGD, colonoscopy x 3, finger reattatchment Past Anesthesia/Blood Transfusion Reactions: No Reported Reaction Past Psychological History: Anxiety, Depression Smoking Status: Never smoker Past Alcohol Use History: Occasional Past Drug Use History: None Reported - Past Family History Mother Family Medical History: Cancer Additional Family Medical History / Comment(s): Mother from breast cancer at the age of 45yrs. Father Family Medical History: AFIB, Coronary Artery Disease (CAD), Myocardial Infarction ([place]) Additional Family Medical History / Comment(s): CABG Sister(s) Family Medical History: Cancer Additional Family Medical History / Comment(s): breast cancer General Exam Limitations: no limitations General appearance: alert, in no apparent distress Head exam: Present: normocephalic Eye exam: Present: normal appearance Neck exam: Present: normal inspection. Absent: tenderness Respiratory exam: Present: normal lung sounds bilaterally Cardiovascular Exam: Present: regular rate, normal rhythm Expanded Peripheral pulses: 2+: Posterior Tibialis (R), Posterior Tibialis (L), Dorsalis Pedis (R), Dorsalis Pedis (L) GI/Abdominal exam: Present: soft. Absent: tenderness Extremities exam: Present: normal inspection. Absent: pedal edema, calf tenderness Neurological exam: Present: alert Psychiatric exam: Present: normal affect, normal mood Skin exam: Present: normal color Course Vital Signs 12/29/21 14:36 Temperature 98.5 F Pulse Rate 108 H Respiratory 18 Rate Blood Pressure 149/93 O2 Sat by Pulse 97 Oximetry EKG Findings - EKG Comments: EKG Findings:: Sinus tachycardia 107. ME 134. QRS 81. QT 312. QTC 375. Left axis. Low QRS voltage. No acute ST change. Medical Decision Making - Medical Decision Making Patient reevaluated. Symptoms significantly improved with nitroglycerin. Patient and family updated on results and plan. Some physician group has been paged for hospital observation call. - Lab Data Result diagrams: 12/29/21 15:20 12/29/21 15:20 Lab Results 12/29/21 12/29/21 12/29/21 Range/Units 15:20 15:20 15:20 WBC 8.7 (3.8-10.6) k/uL RBC 3.98 L (4.30-5.90) m/uL Hgb 10.6 L (13.0-17.5) gm/dL Hct 31.6 L (39.0-53.0) % MCV 79.6 L (80.0-100.0) fL MCH 26.7 (25.0-35.0) pg MCHC 33.5 (31.0-37.0) g/dL RDW 16.7 H (11.5-15.5) % Plt Count 463 H D (150-450) k/uL MPV 6.7 Neutrophils % 81 % Lymphocytes % 0 % Monocytes % 12 % Eosinophils % 1 % Basophils % 3 % Neutrophils # 7.0 (1.3-7.7) k/uL Lymphocytes # 0.0 L (1.0-4.8) k/uL Monocytes # 1.0 (0-1.0) k/uL Eosinophils # 0.1 (0-0.7) k/uL Basophils # 0.2 (0-0.2) k/uL Hypochromasia Slight Poikilocytosis Slight Anisocytosis Slight Microcytosis Slight Sodium 130 L (137-145) mmol/L Potassium 4.6 (3.5-5.1) mmol/L Chloride 96 L (98-107) mmol/L Carbon Dioxide 27 (22-30) mmol/L Anion Gap 7 mmol/L BUN 17 (9-20) mg/dL Creatinine 0.86 (0.66-1.25) mg/dL Est GFR (CKD-EPI)AfAm >90 (>60 ml/min/1.73 sqM) Est GFR (CKD-EPI)NonAf >90 (>60 ml/min/1.73 sqM) Glucose 108 H (74-99) mg/dL Calcium 8.9 (8.4-10.2) mg/dL Magnesium 1.9 (1.6-2.3) mg/dL Total Bilirubin 0.3 (0.2-1.3) mg/dL AST 47 (17-59) U/L ALT 31 (4-49) U/L Alkaline Phosphatase 216 H (38-126) U/L Troponin I <0.012 (0.000-0.034) ng/mL Total Protein 5.9 L (6.3-8.2) g/dL Albumin 3.4 L (3.5-5.0) g/dL Amylase 55 (30-110) U/L Lipase 128 (23-300) U/L - Radiology Data Radiology results: image reviewed (Chest x-ray shows atelectasis) Disposition Clinical Impression: Chest pain Disposition: ADMITTED IP TO THIS HOSP Is patient prescribed a controlled substance at d/c from ED?: No Referrals: Fe Concepcion III, MD [Primary Care Provider] - 1-2 days Time of Disposition: 16:09
--- NOTE | 2021-12-29 15:39 | XR ---
EXAMINATION TYPE: XR chest 2V DATE OF EXAM: 12/29/2021 COMPARISON: 08/02/2021 HISTORY: Chest pain TECHNIQUE: FINDINGS: There is some atelectasis at both lung bases. There is poor inspiration. There is a right c entral venous catheter with tip in the superior vena cava. Bony thorax is intact. IMPRESSION: There is some mild atelectasis at the lung bases. Normal heart.
[2021-12-29 15:42] LABS: Anisocytosis Slight; Basophils # (A) 0.2 k/uL (0-0.2); Basophils % (A) 3 %; Eosinophils # (A) 0.1 k/uL (0-0.7); Eosinophils % (A) 1 %; HCT 31.6 % (39.0-53.0); HGB 10.6 gm/dL (13.0-17.5); Hypochromasia Slight; Lymphocytes % (A) 0 %; MCH 26.7 pg (25.0-35.0); MCHC 33.5 g/dL (31.0-37.0); MCV 79.6 fL (80.0-100.0); Mean Platelet Volume 6.7; Microcytosis Slight; Monocytes % (A) 12 %; Neutrophils % (A) 81 %; Poikilocytosis Slight; RBC 3.98 m/uL (4.30-5.90); RDW 16.7 % (11.5-15.5); WBC 8.7 k/uL (3.8-10.6)
[2021-12-29 15:48] LABS: Platelet Count 463 k/uL (150-450)
[2021-12-29 15:51] LABS: ALT 31 U/L (4-49); AST 47 U/L (17-59); African American GFR (CKD) >90 (>60 ml/min/1.73 sqM); Albumin 3.4 g/dL (3.5-5.0); Alkaline Phosphatase 216 U/L (38-126); Amylase 55 U/L (30-110); Anion Gap 7 mmol/L; Blood Urea Nitrogen 17 mg/dL (9-20); Calcium 8.9 mg/dL (8.4-10.2); Carbon Dioxide 27 mmol/L (22-30); Chloride 96 mmol/L (98-107); Glucose 108 mg/dL (74-99); Lipase 128 U/L (23-300); Magnesium 1.9 mg/dL (1.6-2.3); Non-African American GFR(CKD) >90 (>60 ml/min/1.73 sqM); Potassium 4.6 mmol/L (3.5-5.1); Sodium 130 mmol/L (137-145); Total Bilirubin 0.3 mg/dL (0.2-1.3); Total Protein 5.9 g/dL (6.3-8.2)
[2021-12-29 16:00] LABS: Prothrombin Time 10.9 sec (9.0-12.0)
[2021-12-29] MEDS ORDERED: NITROGLYCERIN SL TABS 0.4 MG TAB SUBLINGUAL PRN (16:10)
--- NOTE | 2021-12-29 17:07 | P.HPIM ---
History of Present Illness H&P Date: 12/29/21 History of Presenting Illness: Patient is a very pleasant 61-year-old male with a past medical history of hypertension and diffuse large B-cell lymphoma under care of Dr. Crain as well as Dr. Weaver and Dr. Reinoso [facility]. Patient states that he is not currently undergoing active chemotherapy and last chemotherapeutic treatment was in October. Patient presented to the emergency department with a chief complaint of chest pain. Patient reports while sitting down this morning watching television he developed a sharp pain to his left anterior chest. Patient denied radiation of this pain but reports pain worsened upon attempts to take a deep breath or upon lying down. Patient reports in addition to this pain he has been experiencing overall fatigue, chills and fevers over the past 8-10 days with temp as high as 102F upon checking at home. Patient also reports urinary frequency times about 2 weeks. He denies having any headache, lightheadedness, dizziness, palpitations, shortness of breath, cough, congestion, abdominal pain, nausea, vomiting, or experiencing any numbness/tingling/weakness/swelling in his extremities. Patient reports that he notified his oncologist and was instructed he needed to come to the ER for evaluation. Patient seen and fully evaluated in the emergency department. CBC revealed microcytic normochromic anemia with hemoglobin of 10.6 and thrombocytosis with platelet count of 463. BMP revealed hyponatremia with sodium of 131 hypochloremia with chloride of 96. Liver profile revealed elevated alkaline phosphatase of 216. Troponin was negative at less than 0.012 and pro-BMP 233. D-dimer was elevated at 0.61 (however this is within normal range for age adjusted d-dimer). An EKG was completed revealing sinus tachycardia at 107 bpm. Chest x-ray revealing mild atelectasis at bilateral lung bases. Vital signs positive for tachycardia with heart rate of 108 and are otherwise stable with temp of 98.5, blood pressure 128/87, respiratory rate 18, and pulse ox of 96% on room air. Patient admitted under our services with consultation to cardiology. Awaiting influenza and Covid PCR is to result. Review of systems: Pertinent positives and negatives as discussed in HPI, a complete review of systems was performed and all other systems are negative. Physical exam: Vital signs reviewed and stable. General: Nontoxic, no distress and appears stated age. Obese male. Derm: Skin warm and dry, normal coloration for ethnicity. Head: Atraumatic, normocephalic and symmetric. Eyes: EOMs intact, no lid lag, and anicteric sclera Mouth: no lip lesions, mucus membranes moist Cardiovascular: Tachycardic rate with regular rhythm with normal S1S2, no murmur, positive posterior tibial pulses bilaterally, and cap refill < 2 seconds. Lungs: Respirations even, regular, and unlabored on room air. Lungs CTA bilatera lly, no rhonchi, no rales, no wheezing, and no accessory muscle usage. Abdominal: soft, nontender to palpation, no guarding, no appreciable organomegaly Ext: ROM intact. No gross muscle atrophy, no edema, no contractures Neuro: Speech clear, face symmetrical and CN II-XII grossly intact with no noted focal neuro deficits Psych: Alert and oriented to person, place, time, and situation. Appropriate and pleasant affect. Assessment and Plan of Care: Chest pain, rule out acute coronary event Elevated d-dimer Tachycardia Generalized Fatigue and subjective fevers -Cardiology consult, appreciate further recommendations -Telemetry monitoring -Trend troponins -Cardiac diet, NPO at midnight -Daily aspirin -Lipid profile with a.m. labs. -Echocardiogram -Covid PCR and influenza pending -CTA chest to be completed secondary to patient's history of cancer along with tachycardia and elevated d-dimer Urinary frequency -Urinalysis with reflex culture to be obtained Diffuse large B-cell lymphoma -Patient was sent to Hospital by oncologist, Dr. Crain. Consult was placed. The patient is admitted with an anticipated less than 2 midnight stay for evaluation of chest pain CODE STATUS: Full code DVT prophylaxis: Heparin Discussed with: Patient and RN along with patient's family member in room Anticipated discharge date: Clinical course to determine Anticipated discharge place: Home A total of 48 minutes was spent on the care of this complex patient more than 50% of the time was spent in counseling and care coordination. Past Medical History Past Medical History: Cancer, GERD/Reflux, Hyperlipidemia, Hypertension, Pneumonia Additional Past Medical History / Comment(s): R upper abdominal pain/black stool and had cat scans that showed large retroperitoneal mass anterior to abdominal aorta and R kidney mass lower pole, pt has been diagnosed with large B cell lymphoma. Other hx: 08/03/21 Paroxysmal afib with RVR/fever, diverticulitis. History of Any Multi-Drug Resistant Organisms: None Reported Past Surgical History: Orthopedic Surgery, Tonsillectomy Additional Past Surgical History / Comment(s): R pararenal mass biopsy, port a c ath, R middle finger reattached, EGD, colonoscopy x 3, finger reattatchment Past Anesthesia/Blood Transfusion Reactions: No Reported Reaction Past Psychological History: Anxiety, Depression Smoking Status: Never smoker Past Alcohol Use History: Occasional Past Drug Use History: None Reported - Past Family History Mother Family Medical History: Cancer Additional Family Medical History / Comment(s): Mother from breast cancer at the age of 45yrs. Father Family Medical History: AFIB, Coronary Artery Disease (CAD), Myocardial Infarction ([place]) Additional Family Medical History / Comment(s): CABG Sister(s) Family Medical History: Cancer Additional Family Medical History / Comment(s): breast cancer Medications and Allergies Home Medications Medication Instructions Recorded Confirmed Type Cholecalciferol [Vitamin D3 (25 50 mcg PO DAILY 07/25/21 10/31/21 History Mcg = 1000 Iu)] Pantoprazole Sodium [Protonix] 40 mg PO DAILY 08/16/21 10/31/21 History Desvenlafaxine [Pristiq ER] 100 mg PO DAILY 10/16/21 10/31/21 History Metoprolol Succinate (ER) [Toprol 50 mg PO DAILY 10/16/21 10/31/21 History XL] Allergies Allergy/AdvReac Type Severity Reaction Status Date / Time bee venom protein (honey bee) Allergy Swelling Verified 12/29/21 16:42 at sting site Penicillins Allergy Rash/Hives Verified 12/29/21 16:42 all over body Physical Exam Vitals: Vital Signs Temp Pulse Resp BP Pulse Ox 12/29/21 14:36 98.5 F 108 H 18 149/93 97 Intake and Output 12/29/21 12/29/21 12/29/21 06:59 14:59 22:59 Other: Weight 77.111 kg Results CBC & Chem 7: 12/29/21 15:20 12/29/21 15:20 Labs: Abnormal Lab Results - Last 24 Hours (Table) 12/29/21 12/29/21 12/29/21 Range/Units 15:20 15:20 15:20 RBC 3.98 L (4.30-5.90) m/uL Hgb 10.6 L (13.0-17.5) gm/dL Hct 31.6 L (39.0-53.0) % MCV 79.6 L (80.0-100.0) fL RDW 16.7 H (11.5-15.5) % Plt Count 463 H D (150-450) k/uL Lymphocytes # 0.0 L (1.0-4.8) k/uL D-Dimer 0.61 H (<0.60) mg/L FEU Sodium 130 L (137-145) mmol/L Chloride 96 L (98-107) mmol/L Glucose 108 H (74-99) mg/dL Alkaline Phosphatase 216 H (38-126) U/L Total Protein 5.9 L (6.3-8.2) g/dL Albumin 3.4 L (3.5-5.0) g/dL
--- NOTE | 2021-12-29 17:15 | CT ---
EXAMINATION TYPE: CT chest angio for PE DATE OF EXAM: 12/29/2021 COMPARISON: 08/02/2021 HISTORY: Elevated d-dimer, chest pain and difficulty breathing. CT DLP: 368.8 mGycm Automated exposure control for dose reduction was used. CONTRAST: Performed with IV Contrast, patient injected with 69ml mL of Isovue 370. There are Three-D postprocessed images. There is some patchy atelectasis at both lung bases. No pleural effusion. No pericardial effusion. Th oracic aorta is intact. No aneurysm or dissection. No mediastinal adenopathy. There are no hilar mass es. There is fairly normal contrast opacification of the pulmonary arteries. No filling defect. There is a mild thoracic dextroscoliosis. No compression fracture. IMPRESSION: There is some atelectasis at the lung bases which is increased compared to the old exam. No evidence of pulmonary embolism. No suspicious pulmonary mass.
[2021-12-29] MEDS: NITROGLYCERIN OINT 1 INCH/GM PACKET TOPICAL SCH ×2 (19:55→23:28)
[2021-12-29 21:39] LABS: Appearance,Urine Clear (Clear); Bilirubin,Urine Negative (Negative); Blood,Urine Trace (Negative); Color,Urine Yellow; Glucose,Urine (UA) Negative (Negative); Ketones,Urine Negative (Negative); Leukocyte Esterase,Urine Negative (Negative); Mucus,Urine Rare /hpf; Nitrite,Urine Negative (Negative); PH, Urine 5.5 (5.0-8.0); Protein,Urine 1+ (Negative); RBC,Urine 2 /hpf (0-5); Urobilinogen,Urine <2.0 mg/dL (<2.0); WBC,Urine 1 /hpf (0-5)
[2021-12-29] MEDS: HEPARIN SODIUM,PORCINE/PF 5,000 UNIT/0.5 ML SYRINGE SQ SCH (23:24)
[2021-12-29] MEDS: SODIUM CHLORIDE 0.9% 1,000 ML IV SCH (23:27)
[2021-12-30] MEDS: ACETAMINOPHEN TAB 325 MG TAB PO PRN ×3 (05:44→21:59)
[2021-12-30] MEDS: NITROGLYCERIN OINT 1 INCH/GM PACKET TOPICAL SCH (05:45)
[2021-12-30] MEDS: SODIUM CHLORIDE 0.9% 1,000 ML IV SCH ×2 (06:25→22:03)
--- NOTE | 2021-12-30 08:01 | P.CRDCN ---
History of Present Illness Consult date: 12/30/21 History of present illness: History of Present Illness: The patient is a 61-year-old male with known history of diffuse large B-cell lymphoma, has been followed by Dr. Wells and at [facility] presents with symptoms of chest discomfort as well as low-grade fever. His fevers been going on for the last 10 days. He has mild cough, nonproductive. He was complaining of left -sided chest discomfort, respirophasic and not activity related. He has a history of paroxysmal atrial fibrillation in July but otherwise no other cardiac disease. His echocardiogram showed preserved systolic function. He denies any PND, orthopnea or peripheral edema. He has no recurrent documented atrial fibrillation. He has episodes of sinus tachycardia. He is being evaluated for T-cell treatment. His coronary risk factors include hypertension, he has no history of diabetes, hyperlipidemia or smoking. His CHADS2-VASC2 score is 1. Medications: Metoprolol XL 50 mg daily, Protonix, vitamin D Review of Systems: Respiratory: He has a history of mild dyspnea and cough GI: No nausea or vomiting . No history of peptic ulcer disease. No recent GI bleed. : No hematuria or dysuria. Nervous System: No stroke or seizure. Physical Examination: 7-year-old male, alert oriented no apparent distress,Blood pressure 129/76, Heart rate in 110s Head: Normocephalic. Eyes: Sclerae nonicteric. Neck: Good carotid upstroke, no bruit, no jugular venous distention. Lungs: Clear to auscultation. Heart: Regular rate and rhythm, S1-S2, no S3, no rub. No murmur. Abdomen: Soft nontender, positive bowel sounds no organomegaly. Extremities: No edema, intact distal pulses. Labs: Hemoglobin 10.6, platelet count 463, potassium 4.6, BUN 17, creatinine 0.86. Troponin less than 0.012, NT proBNP 233. CT angiogram of the chest showed no evidence of pulmonary embolism EKG: EKG sinus tachycardia with nonspecific ST-T wave changes Impression: 1. Chest discomfort, noncardiac could be related to the fever but no evidence to suggest acute coronary syndrome 2. Diffuse large B-cell lymphoma 3. History of hypertension 4. Fever 5. Paroxysmal atrial fibrillation, maintaining sinus mechanism, score of 1 Plan: 1. Continue beta gordy 2. Stop nitrate and aspirin 3. No further cardiac workup is needed at this time 4. Thank you for this consult we will follow with you 5. Patient will follow-up with Dr. Tello as scheduled Past Medical History Past Medical History: Cancer, GERD/Reflux, Hyperlipidemia, Hypertension, Pneumonia Additional Past Medical History / Comment(s): As of 12/29/21. Has been treated with chemotherapy. Last dose November 02. Currently awaiting approval from insurance company for further treatment. Other hx: 08/03/21 Paroxysmal afib with RVR/ History of Any Multi-Drug Resistant Organisms: None Reported Past Surgical History: Orthopedic Surgery, Tonsillectomy Additional Past Surgical History / Comment(s): R pararenal mass biopsy, port a cath (right side) , R middle finger reattached, EGD, colonoscopy x 3, finger reattatchment Past Anesthesia/Blood Transfusion Reactions: No Reported Reaction Past Psychological History: Anxiety, Depression Additional Psychological History / Comment(s): As of 12/29/21 -Patient lives alone. Drives. Is independent with all ADL's. Has weekly housecleaning. Has good friend/family support. Smoking Status: Never smoker Past Alcohol Use History: Rare Past Drug Use History: None Reported - Past Family History Mother Family Medical History: Cancer Additional Family Medical History / Comment(s): Mother from breast cancer at the age of 45yrs. Father Family Medical History: AFIB, Coronary Artery Disease (CAD), Myocardial Infarction ([place]) Additional Family Medical History / Comment(s): CABG Sister(s) Family Medical History: Cancer Additional Family Medical History / Comment(s): breast cancer Medications and Allergies Home Medications Medication Instructions Recorded Confirmed Type Cholecalciferol [Vitamin D3 (25 50 mcg PO DAILY 07/25/21 12/29/21 History Mcg = 1000 Iu)] Pantoprazole Sodium [Protonix] 40 mg PO DAILY 08/16/21 12/29/21 History Desvenlafaxine [Pristiq ER] 100 mg PO DAILY 10/16/21 12/29/21 History Metoprolol Succinate (ER) [Toprol 50 mg PO DAILY 10/16/21 12/29/21 History XL] Allergies Allergy/AdvReac Type Severity Reaction Status Date / Time bee venom protein (honey bee) Allergy Swelling Verified 12/29/21 16:42 at sting site Penicillins Allergy Rash/Hives Verified 12/29/21 16:42 all over body Physical Exam Vitals: Vital Signs Temp Pulse Pulse Resp BP BP Pulse Ox 12/30/21 07:30 99.2 F 119 H 18 130/85 94 L 12/30/21 02:01 100.9 F H 114 H 22 129/76 94 L 12/29/21 18:57 99.2 F 120 H 28 H 131/87 95 12/29/21 15:38 106 H 18 128/87 96 12/29/21 14:36 98.5 F 108 H 18 149/93 97 Intake and Output 12/29/21 12/30/21 12/30/21 22:59 06:59 14:59 Other: # Voids 1 1 Weight 77.111 kg Results 12/29/21 15:20 12/29/21 15:20 Cardiac Enzymes 12/29/21 12/29/21 12/29/21 Range/Units 15:20 15:20 18:42 AST 47 (17-59) U/L Troponin I <0.012 <0.012 (0.000-0.034) ng/mL 12/29/21 Range/Units 21:29 AST (17-59) U/L Troponin I <0.012 (0.000-0.034) ng/mL Coagulation 12/29/21 Range/Units 15:20 PT 10.9 (9.0-12.0) sec APTT 24.0 (22.0-30.0) sec CBC 12/29/21 Range/Units 15:20 WBC 8.7 (3.8-10.6) k/uL RBC 3.98 L (4.30-5.90) m/uL Hgb 10.6 L (13.0-17.5) gm/dL Hct 31.6 L (39.0-53.0) % Plt Count 463 H D (150-450) k/uL Comprehensive Metabolic Panel 12/29/21 Range/Units 15:20 Sodium 130 L (137-145) mmol/L Potassium 4.6 (3.5-5.1) mmol/L Chloride 96 L (98-107) mmol/L Carbon Dioxide 27 (22-30) mmol/L BUN 17 (9-20) mg/dL Creatinine 0.86 (0.66-1.25) mg/dL Glucose 108 H (74-99) mg/dL Calcium 8.9 (8.4-10.2) mg/dL AST 47 (17-59) U/L ALT 31 (4-49) U/L Alkaline Phosphatase 216 H (38-126) U/L Total Protein 5.9 L (6.3-8.2) g/dL Albumin 3.4 L (3.5-5.0) g/dL Current Medications Generic Name Dose Route Start Last Admin Trade Name Freq PRN Reason Stop Dose Admin Acetaminophen 650 mg 12/30/21 02:23 12/30/21 05:44 Acetaminophen Tab 325 Mg Tab PO 650 mg Q4HR PRN Administration Fever and/ or Pain Aspirin 325 mg 12/30/21 09:00 Aspirin 325 Mg Tab PO DAILY [facility] Cholecalciferol 50 mcg 12/30/21 09:00 Cholecalciferol 25 Mcg (1000 Iu) Tablet PO DAILY [facility] Desvenlafaxine Succinate 100 mg 12/30/21 09:00 Desvenlafaxine Succinate 50 Mg Tab.Er.24h PO DAILY [facility] Heparin Sodium (Porcine) 5,000 unit 12/30/21 00:00 12/29/21 23:24 Heparin Sodium,Porcine/Pf 5,000 Unit/0.5 Ml Syringe SQ 5,000 unit Q8HR [facility] Administration Sodium Chloride 1,000 mls @ 75 mls/hr 12/29/21 17:00 12/30/21 06:25 Saline 0.9% IV Not Given .[id number] [facility] Metoprolol Succinate 50 mg 12/30/21 09:00 Metoprolol Succinate (Er) 50 Mg Tab.Er.24h PO DAILY [facility] Nitroglycerin 0.4 mg 12/29/21 16:10 Nitroglycerin Sl Tabs 0.4 Mg Tab SUBLINGUAL Q5M PRN Chest Pain Nitroglycerin 1 inch 12/29/21 18:00 12/30/21 05:45 Nitroglycerin Oint 1 Inch/Gm Packet TOPICAL Not Given Q6HR [facility] Pantoprazole Sodium 40 mg 12/30/21 09:00 Pantoprazole 40 Mg Tablet PO DAILY [facility] Intake and Output 12/29/21 12/30/21 12/30/21 22:59 06:59 14:59 Other: # Voids 1 1 Weight 77.111 kg 12/29/21 15:20 07/10/22 15:20
[2021-12-30] MEDS ORDERED: ASPIRIN 325 MG TAB PO SCH (09:00)
[2021-12-30] MEDS: CHOLECALCIFEROL 25 MCG (1000 IU) TABLET PO SCH (09:14)
[2021-12-30] MEDS: PANTOPRAZOLE 40 MG TABLET PO SCH (09:14)
[2021-12-30] MEDS: DESVENLAFAXINE SUCCINATE 50 MG TAB.ER.24H PO SCH (09:14)
[2021-12-30] MEDS: METOPROLOL SUCCINATE (ER) 50 MG TAB.ER.24H PO SCH (09:14)
[2021-12-30 09:20] LABS: HGB 9.2 g/dL (13.0-17.0); MCH 25.4 pg (27.0-32.0); MCHC 31.7 g/dL (32.0-37.0); MCV 80.1 fL (80.0-97.0); NRBC Per 100 WBC 0 /100 WBCS (0.0-0.0); Platelet Count 407 X 10*3/uL (140-440); RBC 3.62 X 10*6/uL (4.40-5.60); RDW 17.6 % (11.5-14.5); WBC 8.33 X 10*3/uL (4.50-10.00)
[2021-12-30] MEDS: AZITHROMYCIN 500 MG TAB PO SCH (09:31)
[2021-12-30] MEDS: HEPARIN SODIUM,PORCINE/PF 5,000 UNIT/0.5 ML SYRINGE SQ SCH ×2 (09:32→17:12)
[2021-12-30 09:34] LABS: ALT 28 U/L (10-49); AST 29 U/L (14-35); African American GFR (CKD) 112.5 (60.0-200.0); Albumin 3.3 g/dL (3.8-4.9); Albumin/Globulin Ratio 1.57 (1.60-3.17); Alkaline Phosphatase 198 U/L (41-126); BUN/Creat Ratio 18.13 Ratio (12.00-20.00); Blood Urea Nitrogen 14.5 mg/dL (9.0-27.0); Calcium 8.6 mg/dL (8.7-10.3); Carbon Dioxide 22.3 mmol/L (20.0-27.5); Chloride 94 mmol/L (96-109); Chol/HDL Ratio 4.82 Ratio; Globulin 2.1 g/dL (1.6-3.3); Glucose 85 mg/dL (70-110); LDL Cholesterol,Calculated 77.6 mg/dL (0.0-131.0); Non-African American GFR(CKD) 97.1 (60.0-200.0); Potassium 4.9 mmol/L (3.5-5.5); Sodium 128 mmol/L (135-145); Total Protein 5.4 g/dL (6.2-8.2)
[2021-12-30 12:04] LABS: Appearance,Urine Clear (Clear); Bilirubin,Urine Negative (Negative); Blood,Urine Negative (Negative); Color,Urine Yellow; Glucose,Urine (UA) Negative (Negative); Ketones,Urine Negative (Negative); Leukocyte Esterase,Urine Negative (Negative); Nitrite,Urine Negative (Negative); Protein,Urine Trace (Negative); Specific Gravity,Urine 1.017 (1.001-1.035); Urobilinogen,Urine <2.0 mg/dL (<2.0)
--- NOTE | 2021-12-30 13:24 | P.PN ---
Subjective Progress Note Date: 12/30/21 Hospital course: Patient is a very pleasant 61-year-old male with a past medical history of hypertension and diffuse large B-cell lymphoma under care of Dr. Crain as well as Dr. Weaver and Dr. Reinoso [facility]. Patient states that he is not currently undergoing active chemotherapy and last chemotherapeutic treatment was in October. Patient presented to the emergency department with a chief complaint of chest pain. Patient reports while sitting down this morning watching television he developed a sharp pain to his left anterior chest. Patient denied radiation of this pain but reports pain worsened upon attempts to take a deep breath or upon lying down. Patient reports in addition to this pain he has been experiencing overall fatigue, chills and fevers over the past 8-10 days with temp as high as 102F upon checking at home. Patient also reports urinary frequency times about 2 weeks. He denies having any headache, lightheadedness, dizziness, palpitations, shortness of breath, cough, congestion, abdominal pain, nausea, vomiting, or experiencing any numbness/tingling/weakness/swelling in his extremities. Patient reports that he notified his oncologist and was instructed he needed to come to the ER for evaluation. Patient seen and fully evaluated in the emergency department. CBC revealed microcytic normochromic anemia with hemoglobin of 10.6 and thrombocytosis with platelet count of 463. BMP revealed hyponatremia with sodium of 131 hypochloremia with chloride of 96. Liver profile revealed elevated alkaline phosphatase of 216. Troponin was negative at less than 0.012 and pro-BMP 233. D-dimer was elevated at 0.61 (however this is within normal range for age adjusted d-dimer). An EKG was completed revealing sinus tachycardia at 107 bpm. Chest x-ray revealing mild atelectasis at bilateral lung bases. Vital signs positive for tachycardia with heart rate of 108 and are otherwise stable with temp of 98.5, blood pressure 128/87, respiratory rate 18, and pulse ox of 96% on room air. Patient was admitted under our services with consultation to cardiology and oncology. Troponins were trended and all negative at less than 0.0123 draws. CTA revealing increasing atelectasis at bilateral lung bases, negative for PE with no reported suspicious mass. Patient also had elevated temp of 100.9F overnight. He was been started on Rocephin and azithromycin for treatment of community-acquired pneumonia. Covid PCR, influenza A, and influenza B were all negative. Urinalysis was also negative for infection. Physical exam: Patient seen and fully evaluated at bedside this morning. He is doing well. He continues to have reports of mild pain to left rib/chest region worse upon taking a deep breath and states that he had a difficult night with dry cough but continues to deny any shortness of breath. CTA revealing increasing atelectasis at bilateral lung bases, negative for PE with no reported suspicious mass. Patient also had elevated temp of 100.9 overnight. He has been started on Rocephin and azithromycin for treatment of community-acquired pneumonia, as pneumonia likely cause of increasing atelectasis, fever, and cough. Covid PCR, influenza A, and influenza B were all negative. Patient continues to have tachycardia with heart rate 110s and morning temp is 99.2F. Urinalysis was negative for infection. We will obtain a TSH and Patient transitioned from observation to inpatient at this time and report given to Dr. Gomez with [facility] whom will be taking over care of this patient tomorrow. Vital signs reviewed and stable. General: Nontoxic, no distress and appears stated age. Obese male. Derm: Skin warm and dry, normal coloration for ethnicity. Head: Atraumatic, normocephalic and symmetric. Eyes: EOMs intact, no lid lag, and anicteric sclera Mouth: no lip lesions, mucus membranes moist Cardiovascular: Tachycardic rate with regular rhythm with normal S1S2, no murmur, positive posterior tibial pulses bilaterally, and cap refill < 2 seconds. Lungs: Respirations even, regular, and unlabored on room air. Lungs CTA bilaterally, no rhonchi, no rales, no wheezing, and no accessory muscle usage. Abdominal: soft, nontender to palpation, no guarding, no appreciable organomegaly Ext: ROM intact. No gross muscle atrophy, no edema, no contractures Neuro: Speech clear, face symmetrical and CN II-XII grossly intact with no noted focal neuro deficits Psych: Alert and oriented to person, place, time, and situation. Appropriate and pleasant affect. Assessment and Plan of Care: Chest pain, acute coronary event ruled out. Chest pain likely pleuritic. Elevated d-dimer Sinus Tachycardia History of Paroxysmal atrial fibrillation [id number] score 1 -Cardiology following, appreciate further recommendations -Telemetry monitoring -Troponins were negative -Cardiac diet -Lipid profile unremarkable with the exception of low HDL of 27.2 -Echocardiogram -CTA chest revealing increasing atelectasis at bilateral lung bases, negative for PE with no reported suspicious mass. -TSH to be obtained Community-acquired pneumonia Fevers and Generalized Fatigue -CTA revealing increasing atelectasis at bilateral lung bases, negative for PE with no reported suspicious mass. -Patient was started on antibiotics azithromycin and Rocephin.. -Influenza A, influenza B, and Covid were all negative. -SpO2 initially maintaining at 97% on room air now maintaining about 94% room air. We will continue to monitor and provide oxygen supplementation as needed if SPO2 drops below 90%. -Blood cultures to be obtained. Hyponatremia -Sodium 128, likely due to hypovolemic hyponatremia resulting from patient's reports poor oral intake secondary to fatigue and decreased appetite over the past 2 days along with urinary frequency. -Continue with IV fluid hydration and monitor closely with repeat a.m. labs. Urinary frequency -Urinalysis negative Diffuse large B-cell lymphoma -Patient was sent to Hospital by oncologist, Dr. Crain. Consult was placed. CODE STATUS: Full code DVT prophylaxis: Heparin Discussed with: Patient and RN along with patient's family member in room Anticipated discharge date: Clinical course to determine Anticipated discharge place: Home A total of 37 minutes was spent on the care of this complex patient more than 50% of the time was spent in counseling and care coordination. Objective - Vital Signs Vital signs: Vital Signs Temp 99.2 F 12/30/21 07:30 Pulse 119 H 12/30/21 07:30 Resp 18 12/30/21 07:30 BP 130/85 12/30/21 07:30 Pulse Ox 94 L 12/30/21 07:30 FiO2 Intake & Output 12/29/21 12/30/21 12/30/21 18:59 06:59 18:59 Weight 77.111 kg 77.111 kg Other: # Voids 1 - Labs CBC & Chem 7: 12/30/21 04:31 12/30/21 04:31 Labs: Abnormal Lab Results - Last 24 Hours (Table) 12/29/21 12/29/21 12/29/21 Range/Units 15:20 15:20 15:20 RBC 3.98 L (4.30-5.90) m/uL Hgb 10.6 L (13.0-17.5) gm/dL Hct 31.6 L (39.0-53.0) % MCV 79.6 L (80.0-100.0) fL RDW 16.7 H (11.5-15.5) % Plt Count 463 H D (150-450) k/uL Lymphocytes # 0.0 L (1.0-4.8) k/uL D-Dimer 0.61 H (<0.60) mg/L FEU Sodium 130 L (137-145) mmol/L Chloride 96 L (98-107) mmol/L Glucose 108 H (74-99) mg/dL Alkaline Phosphatase 216 H (38-126) U/L Total Protein 5.9 L (6.3-8.2) g/dL Albumin 3.4 L (3.5-5.0) g/dL Ur Specific [place] (1.001-1.035) Urine Protein (Negative) Urine Blood (Negative) Urine Mucus (None) /hpf 12/29/21 Range/Units 20:50 RBC (4.30-5.90) m/uL Hgb (13.0-17.5) gm/dL Hct (39.0-53.0) % MCV (80.0-100.0) fL RDW (11.5-15.5) % Plt Count (150-450) k/uL Lymphocytes # (1.0-4.8) k/uL D-Dimer (<0.60) mg/L FEU Sodium (137-145) mmol/L Chloride (98-107) mmol/L Glucose (74-99) mg/dL Alkaline Phosphatase (38-126) U/L Total Protein (6.3-8.2) g/dL Albumin (3.5-5.0) g/dL Ur Specific [place] 1.050 H (1.001-1.035) Urine Protein 1+ H (Negative) Urine Blood Trace H (Negative) Urine Mucus Rare H (None) /hpf
[2021-12-30 16:20] LABS: % Iron Saturation 6.77 (15.00-50.00)
--- NOTE | 2021-12-30 23:36 | P.CONS ---
History of Present Illness - Reason for Consult Consult date: 12/30/21 - History of Present Illness Patient is a 61-year-old male with a past medical history significant for large B-cell lymphoma for the patient has received chemotherapy with right chest wall Mediport which apparently was accessed last about a week ago where it was flush at the oncology clinic, patient has been complaining of fever has been going on for about 7 to 10 days ranging from 99.4 to 102 F, patient now p resenting to the ER yesterday afternoon for evaluation of left-sided chest discomfort symptoms started the morning of presentation the hospital describing to more of a sharp in nature intensity is about 7-8 out of 10 and no radiation patient did have mild cough WBT sputum denies any nausea no vomiting no abdominal pain no diarrhea patient on presentation to the hospital was afebrile however he did spike a fever of 101.8 F patient has been tachycardic did have a normal white count kidney function has been normal liver enzymes are normal urine has been negative influenza and COVID PCR was negative patient did have a chest x-ray mild atelectasis lung bases CT angiogram of the chest was negative for PE shows atelectasis lung bases increased compared to old exam patient was started on Rocephin infectious disease was consulted for further management of antibiotic therapy this afternoon Past Medical History Past Medical History: Cancer, GERD/Reflux, Hyperlipidemia, Hypertension, Pneumonia Additional Past Medical History / Comment(s): As of 12/29/21. Has been treated with chemotherapy. Last dose November 02. Currently awaiting approval from insurance company for further treatment. Other hx: 08/03/21 Paroxysmal afib with RVR/ History of Any Multi-Drug Resistant Organisms: None Reported Past Surgical History: Orthopedic Surgery, Tonsillectomy Additional Past Surgical History / Comment(s): R pararenal mass biopsy, port a cath (right side) , R middle finger reattached, EGD, colonoscopy x 3, finger reattatchment Past Anesthesia/Blood Transfusion Reactions: No Reported Reaction Past Psychological History: Anxiety, Depression Additional Psychological History / Comment(s): As of 12/29/21 -Patient lives alone. Drives. Is independent with all ADL's. Has weekly housecleaning. Has good friend/family support. Smoking Status: Never smoker Past Alcohol Use History: Rare Past Drug Use History: None Reported - Past Family History Mother Family Medical History: Cancer Additional Family Medical History / Comment(s): Mother from breast cancer at the age of 45yrs. Father Family Medical History: AFIB, Coronary Artery Disease (CAD), Myocardial Infarction ([place]) Additional Family Medical History / Comment(s): CABG Sister(s) Family Medical History: Cancer Additional Family Medical History / Comment(s): breast cancer Medications and Allergies Home Medications Medication Instructions Recorded Confirmed Type Cholecalciferol [Vitamin D3 (25 50 mcg PO DAILY 07/25/21 12/29/21 History Mcg = 1000 Iu)] Pantoprazole Sodium [Protonix] 40 mg PO DAILY 08/16/21 12/29/21 History Desvenlafaxine [Pristiq ER] 100 mg PO DAILY 10/16/21 12/29/21 History Metoprolol Succinate (ER) [Toprol 50 mg PO DAILY 10/16/21 12/29/21 History XL] Allergies Allergy/AdvReac Type Severity Reaction Status Date / Time bee venom protein (honey bee) Allergy Swelling Verified 12/29/21 16:42 at sting site Penicillins Allergy Rash/Hives Verified 12/29/21 16:42 all over body Physical Exam Vitals: Vital Signs Temp Pulse Resp BP Pulse Ox 12/30/21 15:00 101.8 F H 120 H 18 142/85 95 12/30/21 09:18 18 12/30/21 07:30 99.2 F 119 H 18 130/85 94 L 12/30/21 02:01 100.9 F H 114 H 22 129/76 94 L 12/29/21 18:57 99.2 F 120 H 28 H 131/87 95 Intake and Output 12/30/21 12/30/21 12/30/21 06:59 14:59 22:59 Intake Total 460 240 Balance 460 240 Intake: Oral 460 240 Other: Voiding Method Toilet # Voids 1 1 Results CBC & Chem 7: 12/30/21 04:31 12/30/21 04:31 Labs: Abnormal Lab Results - Last 24 Hours (Table) 12/29/21 12/30/21 12/30/21 Range/Units 20:50 04:31 04:31 RBC 3.62 L (4.40-5.60) X 10*6/uL Hgb 9.2 L (13.0-17.0) g/dL Hct 29.0 L (39.6-50.0) % MCH 25.4 L (27.0-32.0) pg MCHC 31.7 L (32.0-37.0) g/dL RDW 17.6 H (11.5-14.5) % MPV 9.0 L (9.5-12.2) fL Sodium 128 L (135-145) mmol/L Chloride 94 L (96-109) mmol/L Calcium 8.6 L (8.7-10.3) mg/dL Iron (65-175) ug/dL TIBC (228-460) ug/dL % Saturation (15.00-50.00) Transferrin (204.0-354.0) mg/dL Ferritin (22.0-322.0) ng/mL Alkaline Phosphatase 198 H (41-126) U/L Total Protein 5.4 L (6.2-8.2) g/dL Albumin 3.3 L (3.8-4.9) g/dL Albumin/Globulin Ratio 1.57 L (1.60-3.17) g/dL HDL Cholesterol 27.20 L (40.00-60.00) mg/dL Ur Specific [place] 1.050 H (1.001-1.035) Urine Protein 1+ H (Negative) Urine Blood Trace H (Negative) Urine Mucus Rare H (None) /hpf IgG (700.0-1600.0) mg/dL 12/30/21 12/30/21 12/30/21 Range/Units 04:31 04:31 11:41 RBC (4.40-5.60) X 10*6/uL Hgb (13.0-17.0) g/dL Hct (39.6-50.0) % MCH (27.0-32.0) pg MCHC (32.0-37.0) g/dL RDW (11.5-14.5) % MPV (9.5-12.2) fL Sodium (135-145) mmol/L Chloride (96-109) mmol/L Calcium (8.7-10.3) mg/dL Iron 15 L (65-175) ug/dL TIBC 214 L (228-460) ug/dL % Saturation 6.77 L (15.00-50.00) Transferrin 153.0 L (204.0-354.0) mg/dL Ferritin 1981.0 H (22.0-322.0) ng/mL Alkaline Phosphatase (41-126) U/L Total Protein (6.2-8.2) g/dL Albumin (3.8-4.9) g/dL Albumin/Globulin Ratio (1.60-3.17) g/dL HDL Cholesterol (40.00-60.00) mg/dL Ur Specific [place] (1.001-1.035) Urine Protein Trace H (Negative) Urine Blood (Negative) Urine Mucus (None) /hpf IgG 586.0 L (700.0-1600.0) mg/dL Assessment and Plan Plan: 1patient presented hospital with left-sided chest pain noted evidence of a fever CT of the chest did show some left-sided atelectasis which is slightly decreased with concern for possible developing pneumonia versus possible Mediport site infection. 2patient with a penicillin allergy that would limit the number of antibiotics safe to use. 3we will try to obtain a sputum CRP and procalcitonin and blood cultures will be followed. 4continue with Rocephin we will add Zithromax. We will follow on clinical condition and cultures to further adjust medication if needed Thank you for this consultation will follow this patient along with you Time with Patient: Greater than 30
[2021-12-31] MEDS: HEPARIN SODIUM,PORCINE/PF 5,000 UNIT/0.5 ML SYRINGE SQ SCH ×3 (00:40→17:30)
[2021-12-31] MEDS ORDERED: METOPROLOL TARTRATE 25 MG TAB PO STA (01:33)
[2021-12-31 02:35] LABS: Uric Acid 3.2 mg/dL (3.7-8.7)
[2021-12-31] MEDS: SODIUM CHLORIDE 0.9% 1,000 ML IV SCH ×2 (07:50→19:42)
[2021-12-31] MEDS: CHOLECALCIFEROL 25 MCG (1000 IU) TABLET PO SCH (07:52)
[2021-12-31] MEDS: DESVENLAFAXINE SUCCINATE 50 MG TAB.ER.24H PO SCH (07:52)
[2021-12-31] MEDS: METOPROLOL SUCCINATE (ER) 50 MG TAB.ER.24H PO SCH (07:52)
[2021-12-31] MEDS: AZITHROMYCIN 500 MG TAB PO SCH (07:52)
[2021-12-31] MEDS: PANTOPRAZOLE 40 MG TABLET PO SCH (07:52)
[2021-12-31] MEDS: ACETAMINOPHEN TAB 325 MG TAB PO PRN ×3 (07:53→19:41)
[2021-12-31 09:22] LABS: HGB 9.8 g/dL (13.0-17.0); MCHC 31.6 g/dL (32.0-37.0); MCV 79.1 fL (80.0-97.0); Mean Platelet Volume 9.1 fL (9.5-12.2); NRBC Per 100 WBC 0 /100 WBCS (0.0-0.0); Platelet Count 453 X 10*3/uL (140-440); RBC 3.92 X 10*6/uL (4.40-5.60); RDW 17.3 % (11.5-14.5); WBC 9.34 X 10*3/uL (4.50-10.00)
[2021-12-31 09:37] LABS: African American GFR (CKD) 118.9 (60.0-200.0); Albumin 3.3 g/dL (3.8-4.9); Albumin/Globulin Ratio 1.5 (1.60-3.17); BUN/Creat Ratio 16.14 Ratio (12.00-20.00); Blood Urea Nitrogen 11.3 mg/dL (9.0-27.0); Calcium 8.6 mg/dL (8.7-10.3); Globulin 2.2 g/dL (1.6-3.3); Non-African American GFR(CKD) 102.6 (60.0-200.0); Potassium 4.5 mmol/L (3.5-5.5); Total Bilirubin 0.4 mg/dL (0.30-1.20); Total Protein 5.5 g/dL (6.2-8.2)
--- NOTE | 2021-12-31 11:04 | P.PN ---
Subjective This is a pleasant 61-year-old male with a past medical history of hypertension and diffuse large B-cell lymphoma, paroxysmal atrial fibrillation (CHADS2-VASC2 score is 1) , history of hypertension. He follows in the office with Dr. Tello. We have been asked to see in consultation for chest pain.patient presents emergency department with chest discomfort, fevers, cough. He is currently being treated for pneumonia. Acute coronary syndrome has been ruled out with negative troponins and EKG sinus tachycardia with nonspecific ST-T wave changes. Patient seen and examined at bedside, no acute distress. He denies any further chest pain. Continues to be febrile. Overnight patient was tachycardic, EKG was performed which revealed sinus tachycardia with heart rates in the 140s. Patient was given metoprolol titrate 25 mg once. He continues to be in sinus tachycardia heart rate improved. Meds:metoprolol succinate 50 mg daily Labs:WBC 9.3, hemoglobin 9.8, platelets 453, d-dimer 0.97, sodium 129, potassium 4.5, BUN 11, serum crit 0.7 GENERAL: Well-appearing, well-nourished and in no acute distress. NECK: Supple without JVD or thyromegaly. LUNGS: Breath sounds clear to auscultation bilaterally. Respiration equal and unlabored. No wheezes, rales or rhonchi. HEART: Regular rate and rhythm without murmurs, rubs or gallops. S1 and S2 heard. EXTREMITIES: Normal range of motion, no edema. No clubbing or cyanosis. Peripheral pulses intact. ASSESSMENT Chest pain, noncardiac could be related to the fever but no evidence to suggest acute coronary syndrome Diffuse large B-cell lymphoma History of hypertension Fever Paroxysmal atrial fibrillation, maintaining sinus mechanism, score of 1 Sinus tachycardia, related to febrile illness PLAN no further cardiac workup is needed at this time. Continue beta gordy. We'll follow the patient as needed. Close follow up outpatient with Dr. Tello Nurse Practitioner note has been reviewed, I agree with a documented findings and plan of care. Patient was seen and examined. Objective - Vital Signs Vital signs: Vital Signs Temp 99.6 F 12/31/21 09:30 Pulse 118 H 12/31/21 08:00 Resp 20 12/31/21 07:00 BP 136/83 12/31/21 07:00 Pulse Ox 94 L 12/31/21 07:00 FiO2 Intake & Output 12/30/21 12/31/21 12/31/21 18:59 06:59 18:59 Intake Total 940 Balance 940 Intake: Oral 940 Other: Voiding Method Toilet Toilet # Voids 1 3 - Labs CBC & Chem 7: 12/31/21 04:10 12/31/21 04:10 Labs: Abnormal Lab Results - Last 24 Hours (Table) 12/30/21 12/30/21 12/30/21 Range/Units 04:31 04:31 04:31 RBC (4.40-5.60) X 10*6/uL Hgb (13.0-17.0) g/dL Hct (39.6-50.0) % MCV (80.0-97.0) fL MCH (27.0-32.0) pg MCHC (32.0-37.0) g/dL RDW (11.5-14.5) % Plt Count (140-440) X 10*3/uL MPV (9.5-12.2) fL D-Dimer (<0.60) mg/L FEU Sodium (135-145) mmol/L Chloride (96-109) mmol/L Uric Acid 3.2 L (3.7-8.7) mg/dL Calcium (8.7-10.3) mg/dL Iron 15 L (65-175) ug/dL TIBC 214 L (228-460) ug/dL % Saturation 6.77 L (15.00-50.00) Transferrin 153.0 L (204.0-354.0) mg/dL Ferritin 1981.0 H (22.0-322.0) ng/mL AST (14-35) U/L Alkaline Phosphatase (41-126) U/L C-Reactive Protein (0.00-0.80) mg/dL Total Protein (6.2-8.2) g/dL Albumin (3.8-4.9) g/dL Albumin/Globulin Ratio (1.60-3.17) g/dL Procalcitonin (0.02-0.09) ng/mL Urine Protein (Negative) IgG 586.0 L (700.0-1600.0) mg/dL 12/30/21 12/31/21 12/31/21 Range/Units 11:41 04:10 04:10 RBC 3.92 L (4.40-5.60) X 10*6/uL Hgb 9.8 L (13.0-17.0) g/dL Hct 31.0 L (39.6-50.0) % MCV 79.1 L (80.0-97.0) fL MCH 25.0 L (27.0-32.0) pg MCHC 31.6 L (32.0-37.0) g/dL RDW 17.3 H (11.5-14.5) % Plt Count 453 H (140-440) X 10*3/uL MPV 9.1 L (9.5-12.2) fL D-Dimer (<0.60) mg/L FEU Sodium 129 L (135-145) mmol/L Chloride 94 L (96-109) mmol/L Uric Acid (3.7-8.7) mg/dL Calcium 8.6 L (8.7-10.3) mg/dL Iron (65-175) ug/dL TIBC (228-460) ug/dL % Saturation (15.00-50.00) Transferrin (204.0-354.0) mg/dL Ferritin (22.0-322.0) ng/mL AST 39 H (14-35) U/L Alkaline Phosphatase 256 H (41-126) U/L C-Reactive Protein 18.00 H (0.00-0.80) mg/dL Total Protein 5.5 L (6.2-8.2) g/dL Albumin 3.3 L (3.8-4.9) g/dL Albumin/Globulin Ratio 1.50 L (1.60-3.17) g/dL Procalcitonin (0.02-0.09) ng/mL Urine Protein Trace H (Negative) IgG (700.0-1600.0) mg/dL 12/31/21 12/31/21 Range/Units 04:10 04:10 RBC (4.40-5.60) X 10*6/uL Hgb (13.0-17.0) g/dL Hct (39.6-50.0) % MCV (80.0-97.0) fL MCH (27.0-32.0) pg MCHC (32.0-37.0) g/dL RDW (11.5-14.5) % Plt Count (140-440) X 10*3/uL MPV (9.5-12.2) fL D-Dimer 0.97 H (<0.60) mg/L FEU Sodium (135-145) mmol/L Chloride (96-109) mmol/L Uric Acid (3.7-8.7) mg/dL Calcium (8.7-10.3) mg/dL Iron (65-175) ug/dL TIBC (228-460) ug/dL % Saturation (15.00-50.00) Transferrin (204.0-354.0) mg/dL Ferritin (22.0-322.0) ng/mL AST (14-35) U/L Alkaline Phosphatase (41-126) U/L C-Reactive Protein (0.00-0.80) mg/dL Total Protein (6.2-8.2) g/dL Albumin (3.8-4.9) g/dL Albumin/Globulin Ratio (1.60-3.17) g/dL Procalcitonin 0.23 H (0.02-0.09) ng/mL Urine Protein (Negative) IgG (700.0-1600.0) mg/dL
--- NOTE | 2021-12-31 13:53 | P.PN ---
Subjective Progress Note Date: 12/31/21 This is a pleasant 61 year old male who is admitted with fever and chest pain with concern for infection. Patient has history of B Cell lymphoma and has last received chemo in October of this year. Patient is evaluated today sitting up in the chair. He has complaints of left sided pleuritic chest pain but stats overall it has improved since admission. He continues to be febrile, T-max 100.5 in the last 24 hours, heart rate throughout the night was up in the 120s. Patient is maintained on metoprolol daily he did get an extra 25 mg of metoprolol. Patient continues on IV ceftriaxone, is also on oral azithromycin. He will be continued on IV fluids as he continues to be febrile and tachycardic suspect from underlying infection. Procalcitonin 0.23, D-Dimer 0.97, he is also hyponatremic today at 129. He was hoping to go home today. Patient is being followed closely by infectious disease, oncology, cardiology has signed off and will follow up outpatient. Review of Systems Constitutional: Denied any fatigue. Reports fever Cardio vascular: denied any chest pain, palpitations Gastrointestinal: denied any nausea, vomiting, diarrhea Pulmonary: Reports cough, non productive, reports pleuritic chest pain worse with deep inspiration Neurologic denied any new focal deficits All inpatient medications were reviewed and appropriate changes in these medications as dictated in the interval history and assessment and plan. PHYSICAL EXAMINATION: GENERAL: The patient is alert and oriented x3, not in any acute distress. Well developed, well nourished. HEENT: Pupils are round and equally reacting to light. EOMI. No scleral icterus. No conjunctival pallor. Normocephalic, atraumatic. No pharyngeal erythema. No thyromegaly. CARDIOVASCULAR: S1 and S2 present. No murmurs, rubs, or gallops. PULMONARY: Chest is clear to auscultation, no wheezing or crackles. ABDOMEN: Soft, nontender, nondistended, normoactive bowel sounds. No palpable organomegaly. MUSCULOSKELETAL: No joint swelling or deformity. EXTREMITIES: No cyanosis, clubbing, or pedal edema. NEUROLOGICAL: Gross neurological examination did not reveal any focal deficits. SKIN: No rashes. Assessment and plan Assessment Left sided atelectasis with fever possible developing pneumonia although procalcitonin level is 0.23. Diffuse Large B-Cell Lymphoma History of hypertension Sinus tachycardia possibly secondary to fever, infection Paroxysmal atrial fibrillation Hyponatremia patient is being hydrated Gastroesophageal reflux disease GI Prophylaxis DVT Prophylaxis Full Code Plan Continue IV fluids Continue IV antibiotics Monitor fever Continue telemetry monitoring Appreciate consultations including cardiology, infectious disease, oncology Repeat BMP in AM Encourage incentive spirometry The impression and plan of care has been dictated by Eden Prado, Nurse Practitioner as directed. Dr. Jason MD I have performed a history and physical examination and medical decision making of this patient, discussed the same with the dictator, and agree with the dictators assessment and plan as written, documented as a scribe. Based on total visit time, I have performed more than 50% of this visit. Objective - Vital Signs Vital signs: Vital Signs Temp 100.5 F H 12/31/21 07:00 Pulse 118 H 12/31/21 08:00 Resp 20 12/31/21 07:00 BP 136/83 12/31/21 07:00 Pulse Ox 94 L 12/31/21 07:00 FiO2 Intake & Output 12/30/21 12/31/21 12/31/21 18:59 06:59 18:59 Intake Total 940 Balance 940 Intake: Oral 940 Other: Voiding Method Toilet Toilet # Voids 1 3 - Labs CBC & Chem 7: 12/31/21 04:10 12/31/21 04:10 Labs: Abnormal Lab Results - Last 24 Hours (Table) 12/30/21 12/30/21 12/30/21 Range/Units 04:31 04:31 04:31 RBC (4.40-5.60) X 10*6/uL Hgb (13.0-17.0) g/dL Hct (39.6-50.0) % MCV (80.0-97.0) fL MCH (27.0-32.0) pg MCHC (32.0-37.0) g/dL RDW (11.5-14.5) % Plt Count (140-440) X 10*3/uL MPV (9.5-12.2) fL D-Dimer (<0.60) mg/L FEU Sodium (135-145) mmol/L Chloride (96-109) mmol/L Uric Acid 3.2 L (3.7-8.7) mg/dL Calcium (8.7-10.3) mg/dL Iron 15 L (65-175) ug/dL TIBC 214 L (228-460) ug/dL % Saturation 6.77 L (15.00-50.00) Transferrin 153.0 L (204.0-354.0) mg/dL Ferritin 1981.0 H (22.0-322.0) ng/mL AST (14-35) U/L Alkaline Phosphatase (41-126) U/L C-Reactive Protein (0.00-0.80) mg/dL Total Protein (6.2-8.2) g/dL Albumin (3.8-4.9) g/dL Albumin/Globulin Ratio (1.60-3.17) g/dL Procalcitonin (0.02-0.09) ng/mL Urine Protein (Negative) IgG 586.0 L (700.0-1600.0) mg/dL 12/30/21 12/31/21 12/31/21 Range/Units 11:41 04:10 04:10 RBC 3.92 L (4.40-5.60) X 10*6/uL Hgb 9.8 L (13.0-17.0) g/dL Hct 31.0 L (39.6-50.0) % MCV 79.1 L (80.0-97.0) fL MCH 25.0 L (27.0-32.0) pg MCHC 31.6 L (32.0-37.0) g/dL RDW 17.3 H (11.5-14.5) % Plt Count 453 H (140-440) X 10*3/uL MPV 9.1 L (9.5-12.2) fL D-Dimer (<0.60) mg/L FEU Sodium 129 L (135-145) mmol/L Chloride 94 L (96-109) mmol/L Uric Acid (3.7-8.7) mg/dL Calcium 8.6 L (8.7-10.3) mg/dL Iron (65-175) ug/dL TIBC (228-460) ug/dL % Saturation (15.00-50.00) Transferrin (204.0-354.0) mg/dL Ferritin (22.0-322.0) ng/mL AST 39 H (14-35) U/L Alkaline Phosphatase 256 H (41-126) U/L C-Reactive Protein 18.00 H (0.00-0.80) mg/dL Total Protein 5.5 L (6.2-8.2) g/dL Albumin 3.3 L (3.8-4.9) g/dL Albumin/Globulin Ratio 1.50 L (1.60-3.17) g/dL Procalcitonin (0.02-0.09) ng/mL Urine Protein Trace H (Negative) IgG (700.0-1600.0) mg/dL 12/31/21 12/31/21 Range/Units 04:10 04:10 RBC (4.40-5.60) X 10*6/uL Hgb (13.0-17.0) g/dL Hct (39.6-50.0) % MCV (80.0-97.0) fL MCH (27.0-32.0) pg MCHC (32.0-37.0) g/dL RDW (11.5-14.5) % Plt Count (140-440) X 10*3/uL MPV (9.5-12.2) fL D-Dimer 0.97 H (<0.60) mg/L FEU Sodium (135-145) mmol/L Chloride (96-109) mmol/L Uric Acid (3.7-8.7) mg/dL Calcium (8.7-10.3) mg/dL Iron (65-175) ug/dL TIBC (228-460) ug/dL % Saturation (15.00-50.00) Transferrin (204.0-354.0) mg/dL Ferritin (22.0-322.0) ng/mL AST (14-35) U/L Alkaline Phosphatase (41-126) U/L C-Reactive Protein (0.00-0.80) mg/dL Total Protein (6.2-8.2) g/dL Albumin (3.8-4.9) g/dL Albumin/Globulin Ratio (1.60-3.17) g/dL Procalcitonin 0.23 H (0.02-0.09) ng/mL Urine Protein (Negative) IgG (700.0-1600.0) mg/dL Assessment and Plan Time with Patient: Less than 30
[2021-12-31] MEDS ORDERED: LORazepam 0.5 MG TAB PO PRN (19:11)
[2021-12-31] MEDS ORDERED: LORazepam 0.5 MG TAB PO SCH (21:00)
--- NOTE | 2021-12-31 23:58 | P.PN ---
Subjective Progress Note Date: 12/31/21 the patient reports improvement in his energy level, as well as the left-sided chest wall pain. He denies any cough. Fever pattern is also improved. Objective - Vital Signs Vital signs: Vital Signs Temp 102.0 F H 12/31/21 19:27 Pulse 123 H 12/31/21 19:27 Resp 19 12/31/21 19:27 BP 160/92 12/31/21 19:27 Pulse Ox 96 12/31/21 19:27 FiO2 Intake & Output 12/31/21 12/31/21 01/01/22 06:59 18:59 06:59 Other: Voiding Method Toilet Toilet # Voids 3 1 1 - Constitutional General appearance: Present: no acute distress - EENT Eyes: Present: EOMI ENT: Present: hearing grossly normal, normal oropharynx - Respiratory Respiratory: bilateral: CTA - Cardiovascular Rhythm: regular Heart sounds: normal: S1, S2 - Gastrointestinal General gastrointestinal: Present: normal bowel sounds, soft - Integumentary Integumentary: Present: normal - Neurologic Neurologic: Present: CNII-XII intact - Musculoskeletal Musculoskeletal: Present: generalized weakness, strength equal bilaterally - Psychiatric Psychiatric: Present: A&O x's 3 - Labs CBC & Chem 7: 12/31/21 04:10 12/31/21 04:10 Labs: Abnormal Lab Results - Last 24 Hours (Table) 12/30/21 12/31/21 12/31/21 Range/Units 04:31 04:10 04:10 RBC 3.92 L (4.40-5.60) X 10*6/uL Hgb 9.8 L (13.0-17.0) g/dL Hct 31.0 L (39.6-50.0) % MCV 79.1 L (80.0-97.0) fL MCH 25.0 L (27.0-32.0) pg MCHC 31.6 L (32.0-37.0) g/dL RDW 17.3 H (11.5-14.5) % Plt Count 453 H (140-440) X 10*3/uL MPV 9.1 L (9.5-12.2) fL D-Dimer (<0.60) mg/L FEU Sodium 129 L (135-145) mmol/L Chloride 94 L (96-109) mmol/L Uric Acid 3.2 L (3.7-8.7) mg/dL Calcium 8.6 L (8.7-10.3) mg/dL AST 39 H (14-35) U/L Alkaline Phosphatase 256 H (41-126) U/L C-Reactive Protein 18.00 H (0.00-0.80) mg/dL Total Protein 5.5 L (6.2-8.2) g/dL Albumin 3.3 L (3.8-4.9) g/dL Albumin/Globulin Ratio 1.50 L (1.60-3.17) g/dL Procalcitonin (0.02-0.09) ng/mL 12/31/21 12/31/21 Range/Units 04:10 04:10 RBC (4.40-5.60) X 10*6/uL Hgb (13.0-17.0) g/dL Hct (39.6-50.0) % MCV (80.0-97.0) fL MCH (27.0-32.0) pg MCHC (32.0-37.0) g/dL RDW (11.5-14.5) % Plt Count (140-440) X 10*3/uL MPV (9.5-12.2) fL D-Dimer 0.97 H (<0.60) mg/L FEU Sodium (135-145) mmol/L Chloride (96-109) mmol/L Uric Acid (3.7-8.7) mg/dL Calcium (8.7-10.3) mg/dL AST (14-35) U/L Alkaline Phosphatase (41-126) U/L C-Reactive Protein (0.00-0.80) mg/dL Total Protein (6.2-8.2) g/dL Albumin (3.8-4.9) g/dL Albumin/Globulin Ratio (1.60-3.17) g/dL Procalcitonin 0.23 H (0.02-0.09) ng/mL Microbiology - Last 24 Hours (Table) 12/30/21 15:30 Blood Culture - Preliminary Blood No Growth after 24 hours 12/30/21 10:46 Blood Culture - Preliminary Blood No Growth after 24 hours Assessment and Plan (1) Fever Narrative/Plan: fever pattern is improved. Cultures are negative so far. ID consult has been performed. Given improvement with antibiotics and IV fluid, as well as the finding of patchy infiltrates in both lungs, infection appears to be more likely. It was discussed with the patient that recurrent lymphoma can also cause fever, and based on imaging studies, as well as his cervical response to treatment, this appears to be less likely. - Continue current treatment. If fevers recurs without any other explanation, restaging studies will be ordered Current Visit: No Status: Acute Priority: High Code(s): R50.9 - FEVER, UNSPECIFIED SNOMED Code(s): 167606976 (2) Large B-cell lymphoma Narrative/Plan: the patient has achieved remission with salvage chemotherapy, and is currently undergoing evaluation for consolidation options at the [facility]. He has been offered a clinical trial, as well as CAR-T cell therapy. He has decided for the latter, and is currently undergoing the process of the insurance a pproval. - His last staging PET scan, for salvage chemotherapy related 11/10 showed complete remission. As noted, the patient has persistent fever with no other explanation, then restaging studies will be ordered. He was advised that in case of recurrent disease, he would need additional salvage therapy before proceeding with CAR-T therapy. Current Visit: No Status: Acute Priority: High Code(s): C85.10 - UNSPECIFIED B-CELL LYMPHOMA, UNSPECIFIED SITE SNOMED Code(s): 825351303
[2022-01-01] MEDS: HEPARIN SODIUM,PORCINE/PF 5,000 UNIT/0.5 ML SYRINGE SQ SCH ×3 (01:01→16:31)
[2022-01-01] MEDS: ACETAMINOPHEN TAB 325 MG TAB PO PRN ×4 (01:55→20:49)
--- NOTE | 2022-01-01 07:13 | CA ---
Transthoracic Echo Report Name: Leo Santana Age: 61 Gender: M : 1960 Exam Date: 12/30/2021 14:00 Exam Location: [facility] Ht (in): 64 Wt (lb): 170 Ordering Physician: Daren Perry Attending/Referring Phys: Maintenance Operator Adriane Sam RDCS Procedure CPT: Indications: Assess structure and function Cardiac Hx: Technical Quality: Good Contrast 1: Total Dose (mL): Contrast 2: Total Dose (mL): MEASUREMENTS (Male / Female) Normal Values 2D ECHO LV Diastolic Diameter PLAX 3.6 cm 4.2 - 5.9 / 3.9 - 5.3 cm LV Systolic Diameter PLAX 2.1 cm IVS Diastolic Thickness 1.3 cm 0.6 - 1.0 / 0.6 - 0.9 cm LVPW Diastolic Thickness 1.4 cm 0.6 - 1.0 / 0.6 - 0.9 cm LV Relative Wall Thickness 0.7 RV Internal Dim ED PLAX 2.7 cm LA Volume 33.1 cm??? 18 - 58 / 22 - 52 cm??? M-MODE Aortic Root Diameter MM 3.1 cm LA Systolic Diameter MM 2.8 cm LA Ao Ratio MM 0.9 MV E Point Septal Separation 0.9 cm AV Cusp Separation MM 1.7 cm DOPPLER AV Peak Velocity 135.1 cm/s AV Peak Gradient 7.3 mmHg MV Area PHT 6.8 cm??? MR Peak Velocity 310.6 cm/s MR Peak Gradient 38.6 mmHg Mitral E Point Velocity 78.3 cm/s Mitral A Point Velocity 99.5 cm/s Mitral E to A Ratio 0.8 MV Deceleration Time 112.2 ms MV E' Velocity 10.0 cm/s Mitral E to MV E' Ratio 7.9 TR Peak Velocity 117.1 cm/s TR Peak Gradient 5.5 mmHg Right Ventricular Systolic Press 10.3 mmHg FINDINGS Left Ventricle Mildly increased septal wall thickness. Left ventricular ejection fraction is estimated at 55-60 %. Normal left ventricular diastolic filling pattern. Left ventricular cavity size normal. Right Ventricle The right ventricle is normal in size and function. Right Atrium The right atrium is normal in size. Left Atrium The left atrium is normal in size. Mitral Valve Structurally normal mitral valve without significant stenosis or prolapse. There is trace mitral regurgitation. Aortic Valve Structurally normal aortic valve without significant sclerosis or stenosis. There is no aortic regurgitation. Tricuspid Valve Structurally normal tricuspid valve without significant stenosis. Pulmonary artery systolic pressure is normal. Trace tricuspid regurgitation. Pulmonic Valve Structurally normal pulmonic valve without significant stenosis. There is no pulmonic regurgitation. Pericardium Normal pericardium without effusion. Aorta Normal aortic root dimension. CONCLUSIONS 1. Normal left ventricle size and systolic function 2. Trace mitral and tricuspid regurgitation 3. No pericardial effusion Previewed by: Dr. Vaibhav Carter MD (Electronically Signed) Final Date: 01 January 2022 07:12
[2022-01-01] MEDS: CHOLECALCIFEROL 25 MCG (1000 IU) TABLET PO SCH (07:55)
[2022-01-01] MEDS: DESVENLAFAXINE SUCCINATE 50 MG TAB.ER.24H PO SCH (07:56)
[2022-01-01] MEDS: METOPROLOL SUCCINATE (ER) 50 MG TAB.ER.24H PO SCH (07:56)
[2022-01-01] MEDS: PANTOPRAZOLE 40 MG TABLET PO SCH (07:56)
[2022-01-01] MEDS: AZITHROMYCIN 500 MG TAB PO SCH (07:57)
[2022-01-01] MEDS: SODIUM CHLORIDE 0.9% 1,000 ML IV SCH ×2 (08:00→16:45)
--- NOTE | 2022-01-01 09:04 | P.CONS ---
History of Present Illness - Reason for Consult Consult date: 12/30/21 Lymphoma Requesting physician: Daren Perry - Chief Complaint Chest Pain - History of Present Illness Mr Santana is a pleasant white male, initially seen in consult at [facility] on 07/15/21. The patient had developed pain in the right upper abdomen that had started a few days prior to admission. He had sought attention with his PCP, and was started on antibiotic for possible cholecystitis. He actually had improvement in the right upper quadrant symptoms but then developed black stools. He therefore came into the emergency room. He had a CT of the abdomen and pelvis that revealed a large retroperitoneal mass anterior to the aorta about 9.3 x 7 x 8 cm which appeared to be adherent to the anterior aorta. This was also encasing the origin of the inferior mesenteric artery. Additional enlarged lymph nodes were noted at the level of the aorta and inferior to the vena cava. There was also a large mass that seemed to be arising from the lower pole of the right kidney and extending inferiorly to the cecum. On examination the patient had no palpable adenopathy. He had a CT of the chest on that was negative. He had an EGD, that showed no significant findings other than mild antral inflammation and mild chronic gastritis and chronic es ophagitis on pathology. He also had biopsy of the right pararenal mass with IR. The patient was subsequently discharged. Preliminary pathology on the pararenal mass was diffuse large B-cell lymphoma. subsequent testing was negative for double/triple hit pathology. Echocardiogram was within normal limits. The patient was admitted in early 08/13 with new onset atrial fibrillation and fever. Workup for PE was negative. This was determined to be known A. fib and the patient was placed on aspirin by cardiology.workup for infection was negative and it was felt that this was more likely tumor fever. Patient's PET scan showed uptake in the adrenal mass, and the retroperitoneal matted adenopathy. There was low level uptake noted in a possible node in the retrocrural area, and in the soft palate. uptake was noted in bilateral inguinal regions which is felt to be artifactual due to dye in the ureters And then started R CHOP on , and is status post 3 cycles. He is also s/p 4/4 cycles of prophylactic IT MTX PET scan after 3 cycles showed only a partial response the patient was therefore switched to R-ICE, starting cycle 1 in the last week of 10/11. His status post 2 cycles. PET scan after 2 cycles again showed a partial response with improvement in uptake at various sites of disease ranging from 30% to 60%. He last seen Dr. Wells on November 20 at that time: He denies any chills/nausea/vomiting or overt fevers . he had 2-3 days of severe lower back and pelvic bone pain, due to Neulasta effect. he had been taking Claritin. Symptoms were able to be controlled with Tylenol, and Motrin. No unusual bleeding or bruising. Energy level and appetite are normal. He has not noted any new adenopathy. Review of systems otherwise as per HPI and negative out of 10 the patient tolerated cycle #2 reasonably well. His PET scan however does not show a complete or near complete response, though there is ongoing partial response. CBC shows hemoglobin of 10.2, WBC 15.4, and platelets of 523. - Check labs - The results of the PET scan and implications were discussed in detail with him. He was advised that based on lack of complete or near complete response, the patient would be considered relatively primary refractory. He will be referred to the [facility] to evaluate for SCT or CAR -T therapy. I will discuss with them regarding the appropriate vision therapy in the meantime.. Given his good tolerance and partial response additional cycles of R-ICE are an option, versus changing to Polituzumab or Tafasitamab based therapy He now presented for CHest discomfort, CTA neg for PE.empiric treatment for pneumonia initiated per ER, however in this immunocompromised patient will need a full Roland culture work-up. Blood cultures ordered. Febrile 100.9 Review of Systems All systems: negative Constitutional: Reports as per HPI Past Medical History Past Medical History: Cancer, GERD/Reflux, Hyperlipidemia, Hypertension, Pneumonia Additional Past Medical History / Comment(s): As of 12/29/21. Has been treated with chemotherapy. Last dose November 02. Currently awaiting approval from insurance company for further treatment. Other hx: 08/03/21 Paroxysmal afib with RVR/ History of Any Multi-Drug Resistant Organisms: None Reported Past Surgical History: Orthopedic Surgery, Tonsillectomy Additional Past Surgical History / Comment(s): R pararenal mass biopsy, port a cath (right side) , R middle finger reattached, EGD, colonoscopy x 3, finger r eattatchment Past Anesthesia/Blood Transfusion Reactions: No Reported Reaction Past Psychological History: Anxiety, Depression Additional Psychological History / Comment(s): As of 12/29/21 -Patient lives alone. Drives. Is independent with all ADL's. Has weekly housecleaning. Has good friend/family support. Smoking Status: Never smoker Past Alcohol Use History: Rare Past Drug Use History: None Reported - Past Family History Mother Family Medical History: Cancer Additional Family Medical History / Comment(s): Mother from breast cancer at the age of 45yrs. Father Family Medical History: AFIB, Coronary Artery Disease (CAD), Myocardial Infarction (ID) Additional Family Medical History / Comment(s): CABG Sister(s) Family Medical History: Cancer Additional Family Medical History / Comment(s): breast cancer Medications and Allergies Home Medications Medication Instructions Recorded Confirmed Type Cholecalciferol [Vitamin D3 (25 50 mcg PO DAILY 07/25/21 12/29/21 History Mcg = 1000 Iu)] Pantoprazole Sodium [Protonix] 40 mg PO DAILY 08/16/21 12/29/21 History Desvenlafaxine [Pristiq ER] 100 mg PO DAILY 10/16/21 12/29/21 History Metoprolol Succinate (ER) [Toprol 50 mg PO DAILY 10/16/21 12/29/21 History XL] Allergies Allergy/AdvReac Type Severity Reaction Status Date / Time bee venom protein (honey bee) Allergy Swelling Verified 12/29/21 16:42 at sting site Penicillins Allergy Rash/Hives Verified 12/29/21 16:42 all over body Physical Exam Vitals: Vital Signs Temp Pulse Pulse Resp BP BP Pulse Ox 12/30/21 09:18 18 12/30/21 07:30 99.2 F 119 H 18 130/85 94 L 12/30/21 02:01 100.9 F H 114 H 22 129/76 94 L 12/29/21 18:57 99.2 F 120 H 28 H 131/87 95 12/29/21 15:38 106 H 18 128/87 96 12/29/21 14:36 98.5 F 108 H 18 149/93 97 Intake and Output 12/29/21 12/30/21 12/30/21 22:59 06:59 14:59 Other: Voiding Method Toilet # Voids 1 1 Weight 77.111 kg - Constitutional General appearance: cooperative, no acute distress - EENT Eyes: EOMI, PERRLA ENT: hard of hearing, NA/AT - Respiratory Respiratory: bilateral: CTA - Cardiovascular Rhythm: regularly irregular - Gastrointestinal General gastrointestinal: normal bowel sounds - Integumentary Integumentary: pale - Neurologic Neurologic: CNII-XII intact - Musculoskeletal Musculoskeletal: generalized weakness - Psychiatric Psychiatric: A&O x's 3, appropriate affect Results CBC & Chem 7: 12/31/21 04:10 12/31/21 04:10 Labs: Abnormal Lab Results - Last 24 Hours (Table) 12/29/21 12/29/21 12/29/21 Range/Units 15:20 15:20 15:20 RBC 3.98 L (4.30-5.90) m/uL Hgb 10.6 L (13.0-17.5) gm/dL Hct 31.6 L (39.0-53.0) % MCV 79.6 L (80.0-100.0) fL MCH (27.0-32.0) pg MCHC (32.0-37.0) g/dL RDW 16.7 H (11.5-15.5) % Plt Count 463 H D (150-450) k/uL MPV (9.5-12.2) fL Lymphocytes # 0.0 L (1.0-4.8) k/uL D-Dimer 0.61 H (<0.60) mg/L FEU Sodium 130 L (137-145) mmol/L Chloride 96 L (98-107) mmol/L Glucose 108 H (74-99) mg/dL Calcium (8.7-10.3) mg/dL Alkaline Phosphatase 216 H (38-126) U/L Total Protein 5.9 L (6.3-8.2) g/dL Albumin 3.4 L (3.5-5.0) g/dL Albumin/Globulin Ratio (1.60-3.17) g/dL HDL Cholesterol (40.00-60.00) mg/dL Ur Specific [place] (1.001-1.035) Urine Protein (Negative) Urine Blood (Negative) Urine Mucus (None) /hpf 12/29/21 12/30/2122 Range/Units 20:50 04:31 04:31 RBC 3.62 L (4.30-5.90) m/uL Hgb 9.2 L (13.0-17.5) gm/dL Hct 29.0 L (39.0-53.0) % MCV (80.0-100.0) fL MCH 25.4 L (27.0-32.0) pg MCHC 31.7 L (32.0-37.0) g/dL RDW 17.6 H (11.5-15.5) % Plt Count (150-450) k/uL MPV 9.0 L (9.5-12.2) fL Lymphocytes # (1.0-4.8) k/uL D-Dimer (<0.60) mg/L FEU Sodium 128 L (137-145) mmol/L Chloride 94 L (98-107) mmol/L Glucose (74-99) mg/dL Calcium 8.6 L (8.7-10.3) mg/dL Alkaline Phosphatase 198 H (38-126) U/L Total Protein 5.4 L (6.3-8.2) g/dL Albumin 3.3 L (3.5-5.0) g/dL Albumin/Globulin Ratio 1.57 L (1.60-3.17) g/dL HDL Cholesterol 27.20 L (40.00-60.00) mg/dL Ur Specific [place] 1.050 H (1.001-1.035) Urine Protein 1+ H (Negative) Urine Blood Trace H (Negative) Urine Mucus Rare H (None) /hpf CT scan - chest: report reviewed Assessment and Plan (1) Chest pain Current Visit: Yes Status: Acute Code(s): R07.9 - CHEST PAIN, UNSPECIFIED SNOMED Code(s): 59220449 (2) Fever Narrative/Plan: Full roland cultures iGg Current Visit: No Status: Acute Priority: High Code(s): R50.9 - FEVER, UNSPECIFIED SNOMED Code(s): 141923248 Plan: Assessment and Plan (1) Atrial fibrillation with RVR Current Visit: No Status: Acute Priority: High Code(s): I48.91 - UNSPECIFIED ATRIAL FIBRILLATION SNOMED Code(s): 595971977911240 (2) Large B-cell lymphoma Narrative/Plan: - Unfortunately his last PET scan revealed he did not respond Current Visit: Yes Status: Acute Code(s): C85.10 - UNSPECIFIED B-CELL LYMPHOMA, UNSPECIFIED SITE SNOMED Code(s): 345676923 Plan: ID COnsult Vanco and Cefepime
[2022-01-01 09:15] LABS: African American GFR (CKD) 126.7 (60.0-200.0); Anion Gap 10.3 mmol/L (10.00-18.00); BUN/Creat Ratio 20.33 Ratio (12.00-20.00); Blood Urea Nitrogen 12.2 mg/dL (9.0-27.0); Calcium 8.7 mg/dL (8.7-10.3); Carbon Dioxide 21.7 mmol/L (20.0-27.5); Non-African American GFR(CKD) 109.3 (60.0-200.0); Potassium 4.3 mmol/L (3.5-5.5)
--- NOTE | 2022-01-01 09:18 | CDI ---
Documentation Clarification Form Date: 01/01/2022 08:58:05 AM From: Ginna Denis CCS, CCDS Admit Date: 12/30/2021 01:05:00 PM Patient Name: Leo Santana Visit Number: [id number] Discharge Date: ATTENTION: The Clinical Documentation Specialists (CDI) and [facility] Coding Staff appreciate your assistance in clarifying documentation. Please respond to the clarification below the line at the bottom and electronically sign. The CDI & [facility] Coding staff will review the response and follow-up if needed. Please note: Queries are made part of the Legal Health Record. If you have any questions, please contact the author of this message via ITS. Dr. Catrina Gomez: The patient presented with the following clinical indicators: Fever, mild cough, chest pain, fatigue and chills, temp as high as 102 at home, Urinary frequency x2 weeks. 12/30 Attending Physician: Community Acquired Pneumonia. Additional clarification regarding the etiology/cause of the clinical indicators is requested. History/Risk Factors per the 12/29 H/P: Hypertension, Diffuse Large B-Cell Lymphoma in remission (per Oncology Progress Note 12/31), Hyperlipidemia, GERD, Pneumonia, Paroxysmal Atrial Fibrillation w/RVR, Diverticulitis, Anxiety, Depression. Clinical Indicators: Presented to the ED on 12/29 with chest pain worse with deep breaths, fatigue, chills, fevers, cough, urinary frequency, sent to the ED by Oncologist. Admit with Chest Pain. Initially admit to observation status. Admit as Inpatient on 12/30. 12/29 VS: T 98.5, P 108, 106, R 18, 28 (sob), BP 149/93, 128/87, PO 97 RA. 12/29 LAB: WBC 8.7, RBC 3.98, Hgb 10.6, Hct 31.6, Pl Ct 463, Neutrophils 7.0, Lymph 0.0. 12/29 CXR: Mild atelectasis lung bases. 12/29 CT Chest: Some atelectasis at the lung bases increased in comparison. 12/29 EKG: R 107 sinus tachycardia. 12/30 VS: T 100.9, P 114, R 22, BP 129/76, PO 94 RA 12/30 LAB: WBC 8.33, RBC 3.62, Hgb 9.2, Hct 29.0, Pl Ct 407, 453; Na 128, Chl 94, Uric Acid 3.2, Calcium 8.6, Iron 15, TIBC 214, % Sat 6.77, Transferrin 153.0, Ferritin 1981.0, Alk Phos 198, total Prot 5.4, Albumin 3.3. Treatment 12/30: Telemetry, Infectious Disease Consulted, Blood Culture, Sputum Culture, Heparin sq, po Tylenol & Aspirin, IV Rocephin 50 mls @ 100 mls/hr q24H, po Azithromycin 500 mg Daily. In your professional opinion, please clarify if these findings signify one of the following conditions: [ x ] Sepsis POA [ ] Sepsis, Not POA [ ] Other, please specify [ ] Unable to determine (Template Last Reviewed: July 2020) MTDD
[2022-01-01 10:39] LABS: Anisocytosis Slight; Basophils # (A) 0.1 k/uL (0-0.2); Basophils % (A) 1 %; Eosinophils % (A) 0 %; HCT 31.4 % (39.0-53.0); HGB 10.1 gm/dL (13.0-17.5); Hypochromasia Slight; Lymphocytes # (A) 0.1 k/uL (1.0-4.8); Lymphocytes % (A) 2 %; MCH 25.7 pg (25.0-35.0); MCHC 32.1 g/dL (31.0-37.0); MCV 79.9 fL (80.0-100.0); Mean Platelet Volume 6.7; Microcytosis Slight; Monocytes # (A) 0.8 k/uL (0-1.0); Monocytes % (A) 12 %; Neutrophils # (A) 5.6 k/uL (1.3-7.7); Neutrophils % (A) 82 %; Platelet Count 473 k/uL (150-450); Poikilocytosis Slight; RBC 3.93 m/uL (4.30-5.90); RDW 16.6 % (11.5-15.5); WBC 6.8 k/uL (3.8-10.6)
[2022-01-01 10:54] LABS: African American GFR (CKD) >90 (>60 ml/min/1.73 sqM); Albumin/Globulin Ratio 1.2; Anion Gap 9 mmol/L; Blood Urea Nitrogen 10 mg/dL (9-20); Carbon Dioxide 23 mmol/L (22-30); Chloride 98 mmol/L (98-107); Globulin 2.5 g/dL; Glucose 125 mg/dL (74-99); Non-African American GFR(CKD) >90 (>60 ml/min/1.73 sqM); Potassium 3.7 mmol/L (3.5-5.1); Sodium 130 mmol/L (137-145); Total Protein 5.5 g/dL (6.3-8.2)
[2022-01-01 10:55] LABS: ALT 22 U/L (4-49); AST 29 U/L (17-59); Alkaline Phosphatase 223 U/L (38-126); Calcium 8.6 mg/dL (8.4-10.2); Magnesium 1.9 mg/dL (1.6-2.3); Total Bilirubin 0.2 mg/dL (0.2-1.3)
--- NOTE | 2022-01-01 12:55 | P.PN ---
Subjective Progress Note Date: 01/01/22 This is a pleasant 61 year old male who is admitted with fever and chest pain with concern for infection. Patient has history of B Cell lymphoma and has last received chemo in October of this year. Patient is evaluated today sitting up in the chair. He has complaints of left sided pleuritic chest pain but stats overall it has improved since admission. He continues to be febrile, T-max 100.5 in the last 24 hours, heart rate throughout the night was up in the 120s. Patient is maintained on metoprolol daily he did get an extra 25 mg of metoprolol. Patient continues on IV ceftriaxone, is also on oral azithromycin. He will be continued on IV fluids as he continues to be febrile and tachycardic suspect from underlying infection. Procalcitonin 0.23, D-Dimer 0.97, he is also hyponatremic today at 129. He was hoping to go home today. Patient is being followed closely by infectious disease, oncology, cardiology has signed off and will follow up outpatient. 12/31/2021 Patient evaluated today sitting on the edge of the bed. T-max 102.9 overnight, he continues to be tachycardic as well with heart rate in the 130s overnight. Cardiology is following the patient and he continues on Toprol XL 50 mg daily. Echocardiogram has been completed showing EF 55 to 60% with trace mitral and tricuspid regurgitation. Labs today showing hgb 10.1, sodium 130, potassium 3.7, glucose 125, magnesium 1.9. He continues on normal saline, IV ceftriaxone, po azithromycin. Pending finalized blood cultures. Urine is negative for infection. He is on room air with saturation 96%. Review of Systems Constitutional: Denied any fatigue. Reports fever Cardio vascular: denied any chest pain, palpitations Gastrointestinal: denied any nausea, vomiting, diarrhea Pulmonary: Reports cough, non productive, reports pleuritic chest pain worse with deep inspiration, improving Neurologic denied any new focal deficits All inpatient medications were reviewed and appropriate changes in these medications as dictated in the interval history and assessment and plan. PHYSICAL EXAMINATION: GENERAL: The patient is alert and oriented x3, not in any acute distress. Well developed, well nourished. HEENT: Pupils are round and equally reacting to light. EOMI. No scleral icterus. No conjunctival pallor. Normocephalic, atraumatic. No pharyngeal erythema. No thyromegaly. CARDIOVASCULAR: S1 and S2 present. No murmurs, rubs, or gallops. PULMONARY: Chest is clear to auscultation, no wheezing or crackles. Left base diminished. ABDOMEN: Soft, nontender, nondistended, normoactive bowel sounds. No palpable organomegaly. MUSCULOSKELETAL: No joint swelling or deformity. EXTREMITIES: No cyanosis, clubbing, or pedal edema. NEUROLOGICAL: Gross neurological examination did not reveal any focal deficits. SKIN: No rashes. Assessment and plan Assessment Left sided atelectasis with fever possible developing pneumonia with sepsis alth aspirus [facility] procalcitonin level is 0.23. Diffuse Large B-Cell Lymphoma History of hypertension Sinus tachycardia possibly secondary to fever, infection Paroxysmal atrial fibrillation Hyponatremia patient is being hydrated Gastroesophageal reflux disease GI Prophylaxis DVT Prophylaxis Full Code Plan Continue IV fluids Continue IV and PO antibiotics Monitor fever Pending finalized blood cultures Continue telemetry monitoring Appreciate consultations including cardiology, infectious disease, oncology Encourage incentive spirometry The impression and plan of care has been dictated by Eden Prado, Nurse Practitioner as directed. Dr. Jason MD I have performed a history and physical examination and medical decision making of this patient, discussed the same with the dictator, and agree with the dictators assessment and plan as written, documented as a scribe. Based on total visit time, I have performed more than 50% of this visit. Objective - Vital Signs Vital signs: Vital Signs Temp 98.3 F 01/01/22 11:21 Pulse 109 H 01/01/22 11:21 Resp 18 01/01/22 07:00 BP 147/82 01/01/22 11:21 Pulse Ox 96 01/01/22 11:21 FiO2 Intake & Output 12/31/21 01/01/22 01/01/22 18:59 06:59 18:59 Intake Total 120 Balance 120 Intake: Oral 120 Other: Voiding Method Toilet # Voids 1 2 - Labs CBC & Chem 7: 01/01/22 10:16 01/01/22 10:16 Labs: Abnormal Lab Results - Last 24 Hours (Table) 01/01/22 01/01/22 01/01/22 Range/Units 04:57 10:16 10:16 RBC 3.93 L (4.30-5.90) m/uL Hgb 10.1 L (13.0-17.5) gm/dL Hct 31.4 L (39.0-53.0) % MCV 79.9 L (80.0-100.0) fL RDW 16.6 H (11.5-15.5) % Plt Count 473 H (150-450) k/uL Lymphocytes # 0.1 L (1.0-4.8) k/uL Sodium 131 L 130 L (135-145) mmol/L BUN/Creatinine Ratio 20.33 H (12.00-20.00) Ratio Glucose 125 H (74-99) mg/dL Alkaline Phosphatase 223 H (38-126) U/L Total Protein 5.5 L (6.3-8.2) g/dL Albumin 3.0 L (3.5-5.0) g/dL Microbiology - Last 24 Hours (Table) 12/30/21 15:30 Blood Culture - Preliminary Blood No Growth after 24 hours 12/30/21 10:46 Blood Culture - Preliminary Blood No Growth after 24 hours Assessment and Plan Time with Patient: Less than 30
[2022-01-01] MEDS: IOPAMIDOL CONTRAST (ORAL USE) VIAL PO PRN ×2 (14:31→15:27)
[2022-01-01] MEDS ORDERED: METOPROLOL TARTRATE 25 MG TAB PO STA (14:51)
--- NOTE | 2022-01-01 15:08 | P.PN ---
Subjective Progress Note Date: 01/01/22 Still running fevers 102.7, no positive cultures. He was seen down at [facility] and the plan was for planning CART-T Cell, he is awaiting for final approval. Objective - Vital Signs Vital signs: Vital Signs Temp 101.7 F H 01/01/22 07:00 Pulse 120 H 01/01/22 07:00 Resp 18 01/01/22 07:00 BP 114/71 01/01/22 07:00 Pulse Ox 97 01/01/22 07:00 FiO2 Intake & Output 12/31/21 01/01/22 01/01/22 18:59 06:59 18:59 Other: Voiding Method Toilet # Voids 1 2 - Exam - Constitutional General appearance: Present: no acute distress - EENT Eyes: Present: EOMI ENT: Present: hearing grossly normal, normal oropharynx - Respiratory Respiratory: bilateral: CTA - Cardiovascular Rhythm: regular Heart sounds: normal: S1, S2 - Gastrointestinal General gastrointestinal: Present: normal bowel sounds, soft - Integumentary Integumentary: Present: normal - Neurologic Neurologic: Present: CNII-XII intact - Musculoskeletal Musculoskeletal: Present: generalized weakness, strength equal bilaterally - Psychiatric Psychiatric: Present: A&O x's 3 - Labs CBC & Chem 7: 01/01/22 10:16 01/01/22 10:16 Labs: Abnormal Lab Results - Last 24 Hours (Table) 12/31/21 12/31/21 12/31/21 Range/Units 04:10 04:10 04:10 RBC 3.92 L (4.40-5.60) X 10*6/uL Hgb 9.8 L (13.0-17.0) g/dL Hct 31.0 L (39.6-50.0) % MCV 79.1 L (80.0-97.0) fL MCH 25.0 L (27.0-32.0) pg MCHC 31.6 L (32.0-37.0) g/dL RDW 17.3 H (11.5-14.5) % Plt Count 453 H (140-440) X 10*3/uL MPV 9.1 L (9.5-12.2) fL Sodium 129 L (135-145) mmol/L Chloride 94 L (96-109) mmol/L Calcium 8.6 L (8.7-10.3) mg/dL AST 39 H (14-35) U/L Alkaline Phosphatase 256 H (41-126) U/L C-Reactive Protein 18.00 H (0.00-0.80) mg/dL Total Protein 5.5 L (6.2-8.2) g/dL Albumin 3.3 L (3.8-4.9) g/dL Albumin/Globulin Ratio 1.50 L (1.60-3.17) g/dL Procalcitonin 0.23 H (0.02-0.09) ng/mL Microbiology - Last 24 Hours (Table) 12/30/21 15:30 Blood Culture - Preliminary Blood No Growth after 24 hours 12/30/21 10:46 Blood Culture - Preliminary Blood No Growth after 24 hours Assessment and Plan (1) Chest pain Current Visit: Yes Status: Acute Code(s): R07.9 - CHEST PAIN, UNSPECIFIED SNOMED Code(s): 34991269 (2) Fever Narrative/Plan: Full roland cultures iGg T-Max 102.9 Blood cultures negative thus far. Current Visit: No Status: Acute Priority: High Code(s): R50.9 - FEVER, UNSPECIFIED SNOMED Code(s): 345292201 (3) Large B-cell lymphoma Current Visit: No Status: Acute Priority: High Code(s): C85.10 - UNSPECIFIED B-CELL LYMPHOMA, UNSPECIFIED SITE SNOMED Code(s): 528512920 Plan: Assessment and Plan (1) Atrial fibrillation with RVR Current Visit: No Status: Acute Priority: High Code(s): I48.91 - UNSPECIFIED ATRIAL FIBRILLATION SNOMED Code(s): 940520558535272 (2) Large B-cell lymphoma Narrative/Plan: - Unfortunately his last PET scan revealed he did not respond Current Visit: Yes Status: Acute Code(s): C85.10 - UNSPECIFIED B-CELL LYMPHOMA, UNSPECIFIED SITE SNOMED Code(s): 203038969 Plan: ID COnsult Vanco and Cefepime Assessment and Plan (1) Fever Narrative/Plan: fever pattern is improved. Cultures are negative so far. ID consult has been performed. Given improvement with antibiotics and IV fluid, as well as the finding of patchy infiltrates in both lungs, infection appears to be more likely. It was discussed with the patient that recurrent lymphoma can also cause fever, and based on imaging studies, as well as his cervical response to treatment, this appears to be less likely. - Continue current treatment. If fevers recurs without any other explanation, restaging studies will be ordered Current Visit: No Status: Acute Priority: High Code(s): R50.9 - FEVER, UNSPECIFIED SNOMED Code(s): 210527481 (2) Large B-cell lymphoma Narrative/Plan: the patient has achieved remission with salvage chemotherapy, and is currently undergoing evaluation for consolidation options at the [facility]. He has been offered a clinical trial, as well as CAR-T cell therapy. He has decided for the latter, and is currently undergoing the process of the insurance approval. - His last staging PET scan, for salvage chemotherapy related 11/10 showed complete remission. As noted, the patient has persistent fever with no other explanation, then restaging studies will be ordered. He was advised that in case of recurrent disease, he would need additional salvage therapy before proceeding with CAR-T therapy. Current Visit: No Status: Acute Priority: High Code(s): C85.10 - UNSPECIFIED B-CELL LYMPHOMA, UNSPECIFIED SITE SNOMED Code(s): 737046858 He has seen [facility] and presented with two options, next plan is for prepping of CART T Cell, he is still waiting for approval from insurance.
--- NOTE | 2022-01-01 18:05 | CT ---
EXAMINATION TYPE: CT abdomen pelvis w con CT DLP: 1520.8 mGycm, Automated exposure control for dose reduction was used. DATE OF EXAM: 01/01/2022 4:29 PM COMPARISON: CT chest 12/29/2021 CT abdomen pelvis 07/14/2021 CLINICAL INDICATION:Male, 61 years old with history of fever; FEVER. HX OF LYMPHOMA TECHNIQUE: Standard CT of the abdomen and pelvis following the administration of 100 cc of Isovue 3 00 IV contrast material. Coronal and sagittal reformats were performed. FINDINGS: LOWER CHEST: Unremarkable ABDOMEN LIVER: Unremarkable GALLBLADDER AND BILE DUCTS: Decompressed PANCREAS: Lipomatous atrophy changes. SPLEEN: Small splenule is present. ADRENAL GLANDS: Unremarkable. KIDNEYS AND URETERS: Increase in soft tissue around the right kidney now measuring 13.5 x 9.5 x 11.3 cm and 49 Hounsfield units, previously 8.3 x 7.9 x 9.7 cm. This was seen on prior on 07/15/2021 renal biopsy. Soft tissue which extends to the anterior aspect of the aorta has decreased from prior CT biopsy, marie suring 4.7 x 1.7 cm, previously 8.7 x 7.2 cm. Soft tissue/lymph node abutting the right renal artery/inferior vena cava measures larger now measuri ng 3.2 x 2.4 previously. 2.9 x 2.1 cm. A right posterior IVC lymph node now measuring 0.9 cm in short axis was previously 2.1 cm. Additional mesenteric lymph nodes are seen along the course of the mesentery vessels best appreciated on image 28 of series 7 have a more conglomerate appearance however a majority of the lymph nodes vaughn ve decreased in size. No evidence of hydronephrosis or renal calculus. PELVIS BLADDER: Unremarkable REPRODUCTIVE: Unremarkable. ABDOMEN & PELVIS STOMACH AND BOWEL: No evidence of bowel obstruction. Appendix is normal. PERITONEUM: No evidence of pneumoperitoneum or free fluid. VASCULATURE: No evidence of aortic aneurysm. MUSCULOSKELETAL: No acute osseous abnormalities LYMPH NODES: Lymph nodes/masses as described above. SOFT TISSUE/ABDOMINAL WALL: Bilateral fat filled inguinal hernia. IMPRESSION: 1. Enlarging right right renal/perinephric mass which was previously biopsied on 07/15/2021. Addition al mixed picture of soft tissue/lymphadenopathy with some lymph nodes decreasing in size while others have increased in size. 2. No evidence for acute infectious process definitively visualized.
[2022-01-01] MEDS: LORazepam 0.5 MG TAB PO PRN (20:42)
--- NOTE | 2022-01-01 23:43 | P.PN ---
Subjective Progress Note Date: 12/31/21 Principal diagnosis: Fever Patient is a 61-year-old male with a past medical history Large B-cell lymphoma on chemotherapy presented to hospital or not feeling well and a fever patient did have some left-sided chest pain with initial concern for possible pneumonia. On today's evaluation that is 12/31/2021, the patient overall fever pattern has improved, the patient left-sided chest pain has resolved did have occasional cough no sputum denies any nausea no vomiting no abdominal pain or diarrhea Objective - Vital Signs Vital signs: Vital Signs Temp 99.6 F 12/31/21 09:30 Pulse 118 H 12/31/21 08:00 Resp 20 12/31/21 07:00 BP 136/83 12/31/21 07:00 Pulse Ox 94 L 12/31/21 07:00 FiO2 Intake & Output 12/30/21 12/31/21 12/31/21 18:59 06:59 18:59 Intake Total 940 Balance 940 Intake: Oral 940 Other: Voiding Method Toilet Toilet # Voids 1 3 - Exam GENERAL DESCRIPTION: Middle-age male lying in bed in no distress RESPIRATORY SYSTEM: Unlabored breathing , decreased breath sounds at bases HEART: S1 S2 regular rate and rhythm , ABDOMEN: Soft , no tenderness EXTREMITIES: No edema feet - Labs CBC & Chem 7: 01/01/22 10:16 01/01/22 10:16 Labs: Abnormal Lab Results - Last 24 Hours (Table) 12/30/21 12/30/21 12/30/21 Range/Units 04:31 04:31 04:31 RBC (4.40-5.60) X 10*6/uL Hgb (13.0-17.0) g/dL Hct (39.6-50.0) % MCV (80.0-97.0) fL MCH (27.0-32.0) pg MCHC (32.0-37.0) g/dL RDW (11.5-14.5) % Plt Count (140-440) X 10*3/uL MPV (9.5-12.2) fL D-Dimer (<0.60) mg/L FEU Sodium (135-145) mmol/L Chloride (96-109) mmol/L Uric Acid 3.2 L (3.7-8.7) mg/dL Calcium (8.7-10.3) mg/dL Iron 15 L (65-175) ug/dL TIBC 214 L (228-460) ug/dL % Saturation 6.77 L (15.00-50.00) Transferrin 153.0 L (204.0-354.0) mg/dL Ferritin 1981.0 H (22.0-322.0) ng/mL AST (14-35) U/L Alkaline Phosphatase (41-126) U/L C-Reactive Protein (0.00-0.80) mg/dL Total Protein (6.2-8.2) g/dL Albumin (3.8-4.9) g/dL Albumin/Globulin Ratio (1.60-3.17) g/dL Procalcitonin (0.02-0.09) ng/mL Urine Protein (Negative) IgG 586.0 L (700.0-1600.0) mg/dL 12/30/21 12/31/21 12/31/21 Range/Units 11:41 04:10 04:10 RBC 3.92 L (4.40-5.60) X 10*6/uL Hgb 9.8 L (13.0-17.0) g/dL Hct 31.0 L (39.6-50.0) % MCV 79.1 L (80.0-97.0) fL MCH 25.0 L (27.0-32.0) pg MCHC 31.6 L (32.0-37.0) g/dL RDW 17.3 H (11.5-14.5) % Plt Count 453 H (140-440) X 10*3/uL MPV 9.1 L (9.5-12.2) fL D-Dimer (<0.60) mg/L FEU Sodium 129 L (135-145) mmol/L Chloride 94 L (96-109) mmol/L Uric Acid (3.7-8.7) mg/dL Calcium 8.6 L (8.7-10.3) mg/dL Iron (65-175) ug/dL TIBC (228-460) ug/dL % Saturation (15.00-50.00) Transferrin (204.0-354.0) mg/dL Ferritin (22.0-322.0) ng/mL AST 39 H (14-35) U/L Alkaline Phosphatase 256 H (41-126) U/L C-Reactive Protein 18.00 H (0.00-0.80) mg/dL Total Protein 5.5 L (6.2-8.2) g/dL Albumin 3.3 L (3.8-4.9) g/dL Albumin/Globulin Ratio 1.50 L (1.60-3.17) g/dL Procalcitonin (0.02-0.09) ng/mL Urine Protein Trace H (Negative) IgG (700.0-1600.0) mg/dL 12/31/21 12/31/21 Range/Units 04:10 04:10 RBC (4.40-5.60) X 10*6/uL Hgb (13.0-17.0) g/dL Hct (39.6-50.0) % MCV (80.0-97.0) fL MCH (27.0-32.0) pg MCHC (32.0-37.0) g/dL RDW (11.5-14.5) % Plt Count (140-440) X 10*3/uL MPV (9.5-12.2) fL D-Dimer 0.97 H (<0.60) mg/L FEU Sodium (135-145) mmol/L Chloride (96-109) mmol/L Uric Acid (3.7-8.7) mg/dL Calcium (8.7-10.3) mg/dL Iron (65-175) ug/dL TIBC (228-460) ug/dL % Saturation (15.00-50.00) Transferrin (204.0-354.0) mg/dL Ferritin (22.0-322.0) ng/mL AST (14-35) U/L Alkaline Phosphatase (41-126) U/L C-Reactive Protein (0.00-0.80) mg/dL Total Protein (6.2-8.2) g/dL Albumin (3.8-4.9) g/dL Albumin/Globulin Ratio (1.60-3.17) g/dL Procalcitonin 0.23 H (0.02-0.09) ng/mL Urine Protein (Negative) IgG (700.0-1600.0) mg/dL Assessment and Plan (1) Fever Current Visit: No Status: Acute Priority: High Code(s): R50.9 - FEVER, UNSPECIFIED SNOMED Code(s): 525066975 Plan: 1patient presented hospital with left-sided chest pain noted evidence of a fever CT of the chest did show some left-sided atelectasis which is slightly decreased with concern for possible developing pneumonia versus possible Mediport site infection. 2patient with a penicillin allergy that would limit the number of antibiotics safe to use. 3patient will continue with Rocephin and Zithromax in view of resolution of the fever while waiting for the cultures to finalize. Time with Patient: Less than 30
--- NOTE | 2022-01-01 23:44 | P.PN ---
Subjective Progress Note Date: 01/01/22 Principal diagnosis: Fever Patient is a 61-year-old male with a past medical history Large B-cell lymphoma on chemotherapy presented to hospital or not feeling well and a fever patient did have some left-sided chest pain with initial concern for possible pneumonia. On today's evaluation that is 01/01/2022, the patient did spike a fever of 103F, the patient left-sided chest pain has resolved, the patient did have occasional cough no sputum denies any nausea no vomiting no abdominal pain or diarrhea, no new symptoms Objective - Vital Signs Vital signs: Vital Signs Temp 98.3 F 01/01/22 11:21 Pulse 109 H 01/01/22 11:21 Resp 18 01/01/22 07:00 BP 147/82 01/01/22 11:21 Pulse Ox 96 01/01/22 11:21 FiO2 Intake & Output 12/31/21 01/01/22 01/01/22 18:59 06:59 18:59 Intake Total 120 Balance 120 Intake: Oral 120 Other: Voiding Method Toilet # Voids 1 2 - Exam GENERAL DESCRIPTION: Middle-age male lying in bed in no distress RESPIRATORY SYSTEM: Unlabored breathing , decreased breath sounds at bases HEART: S1 S2 regular rate and rhythm , ABDOMEN: Soft , no tenderness EXTREMITIES: No edema feet - Labs CBC & Chem 7: 01/01/22 10:16 01/01/22 10:16 Labs: Abnormal Lab Results - Last 24 Hours (Table) 01/01/22 01/01/22 01/01/22 Range/Units 04:57 10:16 10:16 RBC 3.93 L (4.30-5.90) m/uL Hgb 10.1 L (13.0-17.5) gm/dL Hct 31.4 L (39.0-53.0) % MCV 79.9 L (80.0-100.0) fL RDW 16.6 H (11.5-15.5) % Plt Count 473 H (150-450) k/uL Lymphocytes # 0.1 L (1.0-4.8) k/uL Sodium 131 L 130 L (135-145) mmol/L BUN/Creatinine Ratio 20.33 H (12.00-20.00) Ratio Glucose 125 H (74-99) mg/dL Alkaline Phosphatase 223 H (38-126) U/L Total Protein 5.5 L (6.3-8.2) g/dL Albumin 3.0 L (3.5-5.0) g/dL Microbiology - Last 24 Hours (Table) 12/30/21 10:46 Blood Culture - Preliminary Blood No Growth after 48 hours 12/30/21 15:30 Blood Culture - Preliminary Blood No Growth after 24 hours Assessment and Plan (1) Fever Current Visit: No Status: Acute Priority: High Code(s): R50.9 - FEVER, UNSPECIFIED SNOMED Code(s): 999719589 Plan: 1patient presented hospital with left-sided chest pain noted evidence of a fev er CT of the chest did show some left-sided atelectasis which is slightly decreased with concern for possible developing pneumonia versus possible Mediport site infection. 2patient blood culture had been negative that would make Mediport infection to be less likely 3-in view of persistent fever we will obtain a CT of abdominal pelvis to rule out intra-abdominal pathology and for now continue with Rocephin and Zithromax Time with Patient: Less than 30
[2022-01-02] MEDS: HEPARIN SODIUM,PORCINE/PF 5,000 UNIT/0.5 ML SYRINGE SQ SCH ×3 (00:33→17:23)
[2022-01-02] MEDS: SODIUM CHLORIDE 0.9% 1,000 ML IV SCH ×2 (00:33→12:02)
[2022-01-02 03:50] VITALS: RESP 18
[2022-01-02] MEDS: ACETAMINOPHEN TAB 325 MG TAB PO PRN (04:09)
[2022-01-02] MEDS: METOPROLOL SUCCINATE (ER) 50 MG TAB.ER.24H PO SCH (08:00)
[2022-01-02] MEDS: CHOLECALCIFEROL 25 MCG (1000 IU) TABLET PO SCH (08:00)
[2022-01-02] MEDS: AZITHROMYCIN 500 MG TAB PO SCH (08:00)
[2022-01-02] MEDS: PANTOPRAZOLE 40 MG TABLET PO SCH (08:00)
[2022-01-02] MEDS: DESVENLAFAXINE SUCCINATE 50 MG TAB.ER.24H PO SCH (08:00)
[2022-01-02] MEDS: LORazepam 0.5 MG TAB PO PRN (08:12)
[2022-01-02 08:59] LABS: African American GFR (CKD) 126.7 (60.0-200.0); Albumin 2.9 g/dL (3.8-4.9); Albumin/Globulin Ratio 1.45 (1.60-3.17); BUN/Creat Ratio 17.5 Ratio (12.00-20.00); Blood Urea Nitrogen 10.5 mg/dL (9.0-27.0); Calcium 8.4 mg/dL (8.7-10.3); Magnesium 1.7 mg/dL (1.5-2.4); Non-African American GFR(CKD) 109.3 (60.0-200.0); Potassium 3.7 mmol/L (3.5-5.5); Total Bilirubin 0.2 mg/dL (0.30-1.20); Total Protein 4.9 g/dL (6.2-8.2)
[2022-01-02 09:00] LABS: Basophils # (A) 0.02 X 10*3/uL (0.00-0.10); Basophils % (A) 0.3 %; Eosinophils # (A) 0.01 X 10*3/uL (0.04-0.35); Eosinophils % (A) 0.2 %; HCT 21.6 % (39.6-50.0); Immature Grans, Automated 0.5 %; Lymphocytes # (A) 0.14 X 10*3/uL (0.90-5.00); Lymphocytes % (A) 2.4 %; MCH 29.5 pg (27.0-32.0); MCV 79.7 fL (80.0-97.0); Mean Platelet Volume 9.1 fL (9.5-12.2); Monocytes # (A) 1.31 X 10*3/uL (0.20-1.00); Monocytes % (A) 22.3 %; NRBC Per 100 WBC 0 /100 WBCS (0.0-0.0); Neutrophils # (A) 4.37 X 10*3/uL (1.80-7.70); Neutrophils % (A) 74.3 %; Platelet Count 304 X 10*3/uL (140-440); RBC 2.71 X 10*6/uL (4.40-5.60); RDW 17.3 % (11.5-14.5); WBC 5.88 X 10*3/uL (4.50-10.00)
[2022-01-02] MEDS ORDERED: NON FORMULARY DRUG IV SCH (09:30)
[2022-01-02] MEDS ORDERED: POTASSIUM CHLORIDE ER 20 MEQ TAB.ER PO STA (11:27)
[2022-01-02] MEDS: MAGNESIUM SULFATE-D5W PMX 1 GM in DEXTROSE/WATER 1 100ML.BAG IVPB SCH ×2 (11:58→18:23)
[2022-01-02] MEDS ORDERED: IMMUNE GLOBULIN (GAMMAGARD) 30 GM in EMPTY BAG 1 BAG IV ONE (12:00)
[2022-01-02] MEDS ORDERED: CHOLESTYRAMINE (WITH SUGAR) 4 GM PACKET PO SCH (12:00)
--- NOTE | 2022-01-02 15:51 | P.DS ---
Providers Date of admission: 12/30/21 13:05 Attending physician: Catrina Gomez Consults: 12/29/21 16:10 Consult Physician Urgent Consulting Provider: Frederick Shay Consult Reason/Comments: cp Do you want consulting provider notified?: Yes 12/29/21 17:04 Consult Physician Routine Consulting Provider: Woodrow Wells Consult Reason/Comments: Patient under care of Dr. Escobar for diffuse large B- cell lymphoma Do you want consulting provider notified?: Yes 12/30/21 16:15 Consult Physician Routine Consulting Provider: Vladislav Reyna Consult Reason/Comments: fever, lymphoma Do you want consulting provider notified?: Already Contacted [facility] care physician: [facility] Course: Diagnosis Left sided atelectasis with fever procalcitonin 0.23 and suspicion for developing pneumonia is low Diffuse Large B-Cell Lymphoma Enlarging right renal/perinephric mass with previous biopsy Jun found on Abdominal CT may be source of fever History of hypertension Sinus tachycardia possibly secondary to fever, infection Paroxysmal atrial fibrillation Hyponatremia patient is being hydrated Gastroesophageal reflux disease Elevated alk phos which appears chronic for patient and stable. Full Code Discharge Disposition Patient is stable for discharge he has been cleared by infectious disease, cardiology and oncology. He will receive a dose of IVIG prior to discharge. Patient is discharged on increase in Toprol XL to 100 mg PO daily as he does have tachycardia in the 110s and will follow up with Dr Tello in the office. He is scheduled to see Dr Wells in the office on Thursday01/07/22. Hospital Course This is a pleasant 61-year-old male who presents with medical history of hypertension and diffuse large B-cell lymphoma was under the care of Dr. Wells as well as Dr. Weaver and Dr. Reinoso at [facility] drew. Patient has last undergone chemotherapy in October of this year. He is currently pending authorization to begin treatment with a different medication. Patient presents to the emergency room with main complaints of chest pain that he reports happened while sitting down watching TV. Pain is described as a sharp pain to his left anterior chest and denies radiation. He does report pain worsening when he takes a deep breath upon lying down. Patient is also experiencing overall fatigue, chills and fever over the last 8-10 days and temperature has been as high as 102 at home. He has urinary frequency as well. Patient denies lightheadedness or dizziness. He denies palpitations, shortness breath, cough. He denies any nausea vomiting or diarrhea on admission. Patient discussed with oncology and was instructed to come to the for evaluation. On admission his labs are showing hemoglobin 10.6, normocytic, he has thrombocytosis at 463. He does have hyponatremia with sodium level of 131, hypochloremia was required 96. His liver enzyme is elevated at 216. Cardiac workup includes troponin level negative at 0.02, proBNP 233. D-dimer elevated at 0.61 and patient underwent chest CT angiography which is negative for pulmonary embolism and no suspicious pulmonary mass. There is some atelectasis at lung bases is increased compared to old exam. EKG completed a showing sinus tachycardia with heart rate of 121, QT interval 457, no ST or T-wave changes evident. Was also seen in consultation by cardiology services. 2D echocardiogram showing normal left ventricle size and systolic function with trace mitral and tricuspid regurgitation with no pericardial effusion. No pulmonary hypertension. He was cleared by cardiology for discharge to continue on his Toprol-XL 50 mg daily however this will be increased to 100 mg daily. Iron studies were completed showing iron 15, TIBC 214, percent saturation 6.77, transferrin 153, ferritin 1981. He will follow up with hematology oncology outpatient on 01/07/2022. Patient was admitted to the hospital consultation placed to cardiology, infectious disease and oncology services. His sodium improved and then dropped improved again. He was maintained and IV hydration normal saline at 100 mL per hour. Blood cultures have remained negative. He was started empirically on IV Rocephin, azithromycin oral. Procalcitonin negative at 0.23 and CRP was found to be elevated at 18.00. He continues to be febrile with T-max 103 and as well as persistent tachycardia and a heart rate ranging from 130s to 110s. Urinalysis negative for infection, Covid negative, influenza A/B- negative. Abdominal pelvis CT completed to rule out source of infection which does show enlarging right renal/perinephric mass which was previously biopsied on 06/25/2021. There is also soft tissue lymphadenopathy with some lymph nodes decreasing in size and some lymph nodes increasing in size. There is no evid ence for acute infectious process. After discussion with consultations it is felt that persistent fever is most likely caused from a lymphoma and he will be discharged to follow up in the office with his primary care, oncology, cardiology. Infectious disease recommends no antibiotics on discharge. Patient will repeat labs in 2 days outpatient to monitor sodium level. 01/02/2022 Patient evaluated today sitting on edge of bed. He denies chest pain, no shortness of breath. He is using incentive spirometer which is recommended to continue on discharge. He is urinating without difficulty, he did have multiple episodes of loose BM throughout the evening which is felt likely from antibiotics and he was given questran and will discharge on 3 more days of questran. He continues with temp T-Max 102.2, heart rate 117, blood pressure 126/81, 95% room air. Lung sounds are clear with equal aeration throughout. S1 S2 patient is tachycardic regular rate and rhythm. Abdomen is soft and nontender. Labs today showing white count 5.88, hgb 8.0, platelet count 304, sodium 130, potassium 3.7, BUN 10.5, creatinine 0.6, calcium 8.4, magnesium 1.7, alk phos 197. Patient received magnesium and potassium supplementation today. Please see medication reconciliation for list of current medication. Thank you for allowing us to participate in the care of this patient. The impression and plan of care has been dictated by Eden Prado, Nurse Practitioner as directed. Dr. Jason MD I have performed a history and physical examination and medical decision making of this patient, discussed the same with the dictator, and agree with the dictators assessment and plan as written, documented as a scribe. Based on total visit time, I have performed more than 50% of this visit. Patient Condition at Discharge: Fair Plan - Discharge Summary Discharge Rx Participant: No New Discharge Prescriptions: New Cholestyramine (with Sugar) [Questran Packet] 4 gm PO BID@1000,1800 3 Days #6 packet Acetaminophen Tab [Tylenol] 650 mg PO Q4HR PRN tab PRN Reason: Fever And/ Or Pain Metoprolol Succinate (ER) [Toprol Xl] 100 mg PO DAILY #30 tab Continue Cholecalciferol [Vitamin D3 (25 Mcg = 1000 Iu)] 50 mcg PO DAILY Pantoprazole Sodium [Protonix] 40 mg PO DAILY Desvenlafaxine [Pristiq ER] 100 mg PO DAILY Discontinued Metoprolol Succinate (ER) [Toprol XL] 50 mg PO DAILY Discharge Medication List Cholecalciferol [Vitamin D3 (25 Mcg = 1000 Iu)] 50 mcg PO DAILY 07/25/21 [History] Pantoprazole Sodium [Protonix] 40 mg PO DAILY 08/16/21 [History] Desvenlafaxine [Pristiq ER] 100 mg PO DAILY 10/16/21 [History] Acetaminophen Tab [Tylenol] 650 mg PO Q4HR PRN tab 01/02/22 [Rx] Cholestyramine (with Sugar) [Questran Packet] 4 gm PO BID@1000,1800 3 Days #6 packet 01/02/22 [Rx] Metoprolol Succinate (ER) [Toprol Xl] 100 mg PO DAILY #30 tab 01/02/22 [Rx] Follow up Appointment(s)/Referral(s): Woodrow Wells MD [Family Provider] - 01/07/22 Fe Concepcion III, MD [Primary Care Provider] - 1-2 days [facility]Infusion [NON-STAFF] - As Needed ([facility] - P: [phone] - IN OFFICE ONLY COVERED AT 100%) [facility], [REFERRING] - As Needed ([facility] - COVERAGE: Supplies and ABX covered at 100%. Policy states nursing visits are not covered. Can attempt an auth and bill them anyway - but if refused, patient will have a nursing visit bill ) George Tello MD [STAFF PHYSICIAN] - 2 Weeks Ambulatory/Diagnostic Orders: Basic Metabolic Panel [LAB.AMB] Time Frame: 2 Days, Location: None Selected Magnesium [LAB.AMB] Time Frame: 2 Days, Location: None Selected Activity/Diet/Wound Care/Special Instructions: Continue to monitor fever Monitor heart rate, Toprol XL has been increased to 100 mg daily, and follow up with Dr. Tello for cardiology on discharge Follow up appointment with Dr Wells on Thursday Continue to use incentive spirometer 10 times an hour while awake Discharge Disposition: HOME WITH HOME HEALTH SERVICES
--- NOTE | 2022-01-02 16:01 | P.PN ---
Subjective Progress Note Date: 01/02/22 No definitive infectious cause identified, appears to be related to probable progression. He does have diarrhea therefore will obtain stool studies Objective - Vital Signs Vital signs: Vital Signs Temp 99.2 F 01/02/22 08:00 Pulse 117 H 01/02/22 08:00 Resp 18 01/02/22 08:00 BP 136/81 01/02/22 08:00 Pulse Ox 95 01/02/22 08:00 FiO2 Intake & Output 01/01/22 01/02/22 01/02/22 18:59 06:59 18:59 Intake Total 480 240 Balance 480 240 Intake: Oral 480 240 Other: Voiding Method Toilet Toilet # Voids 1 4 1 # Bowel Movements 4 - Exam - Constitutional General appearance: Present: no acute distress - EENT Eyes: Present: EOMI ENT: Present: hearing grossly normal, normal oropharynx - Respiratory Respiratory: bilateral: CTA - Cardiovascular Rhythm: regular Heart sounds: normal: S1, S2 - Gastrointestinal General gastrointestinal: Present: normal bowel sounds, soft - Integumentary Integumentary: Present: normal - Neurologic Neurologic: Present: CNII-XII intact - Musculoskeletal Musculoskeletal: Present: generalized weakness, strength equal bilaterally - Psychiatric Psychiatric: Present: A&O x's 3 - Labs CBC & Chem 7: 01/02/22 05:07 01/02/22 05:07 Labs: Abnormal Lab Results - Last 24 Hours (Table) 01/02/22 01/02/22 Range/Units 05:07 05:07 RBC 2.71 L (4.40-5.60) X 10*6/uL Hgb 8.0 L (13.0-17.0) g/dL Hct 21.6 L (39.6-50.0) % MCV 79.7 L (80.0-97.0) fL RDW 17.3 H (11.5-14.5) % MPV 9.1 L (9.5-12.2) fL Lymphocytes # 0.14 L (0.90-5.00) X 10*3/uL Monocytes # 1.31 H (0.20-1.00) X 10*3/uL Eosinophils # 0.01 L (0.04-0.35) X 10*3/uL Sodium 130 L (135-145) mmol/L Carbon Dioxide 18.0 L (20.0-27.5) mmol/L Calcium 8.4 L (8.7-10.3) mg/dL Total Bilirubin 0.20 L (0.30-1.20) mg/dL Alkaline Phosphatase 197 H (41-126) U/L Total Protein 4.9 L (6.2-8.2) g/dL Albumin 2.9 L (3.8-4.9) g/dL Albumin/Globulin Ratio 1.45 L (1.60-3.17) g/dL Microbiology - Last 24 Hours (Table) 12/30/21 10:46 Blood Culture - Preliminary Blood No Growth after 72 hours 12/30/21 15:30 Blood Culture - Preliminary Blood No Growth after 48 hours Assessment and Plan (1) Chest pain Current Visit: Yes Status: Acute Code(s): R07.9 - CHEST PAIN, UNSPECIFIED SNOMED Code(s): 24758834 (2) Fever Narrative/Plan: Full roland cultures neg 96 hours iGg T-Max 102.9 Blood cultures negative thus far. Current Visit: No Status: Acute Priority: High Code(s): R50.9 - FEVER, UNSPECIFIED SNOMED Code(s): 785653557 (3) Large B-cell lymphoma Current Visit: No Status: Acute Priority: High Code(s): C85.10 - UNSPECIFIED B-CELL LYMPHOMA, UNSPECIFIED SITE SNOMED Code(s): 584463547 Plan: Assessment and Plan (1) Atrial fibrillation with RVR Current Visit: No Status: Acute Priority: High Code(s): I48.91 - UNSPECIFIED ATRIAL FIBRILLATION SNOMED Code(s): 500100949036012 (2) Large B-cell lymphoma Narrative/Plan: - Unfortunately his last PET scan revealed he did not respond Current Visit: Yes Status: Acute Code(s): C85.10 - UNSPECIFIED B-CELL LYMPHOMA, UNSPECIFIED SITE SNOMED Code(s): 484424537 Plan: ID COnsult Vanco and Cefepime Assessment and Plan (1) Fever Narrative/Plan: fever pattern is improved. Cultures are negative so far. ID consult has been performed. Given improvement with antibiotics and IV fluid, as well as the finding of patchy infiltrates in both lungs, infection appears to be more likely. It was discussed with the patient that recurrent lymphoma can also cause fever, and based on imaging studies, as well as his cervical response to treatment, this appears to be less likely. - Continue current treatment. If fevers recurs without any other explanation, restaging studies will be ordered Current Visit: No Status: Acute Priority: High Code(s): R50.9 - FEVER, UNSPECIFIED SNOMED Code(s): 017749041 (2) Large B-cell lymphoma Narrative/Plan: the patient has achieved remission with salvage chemotherapy, and is currently undergoing evaluation for consolidation options at the [facility]. He has been offered a clinical trial, as well as CAR-T cell therapy. He has decided for the latter, and is currently undergoing the process of the insurance approval. - His last staging PET scan, for salvage chemotherapy related 11/10 showed complete remission. As noted, the patient has persistent fever with no other explanation, then restaging studies will be ordered. He was advised that in case of recurrent disease, he would need additional salvage therapy before pro ceeding with CAR-T therapy. Current Visit: No Status: Acute Priority: High Code(s): C85.10 - U NSPECIFIED B-CELL LYMPHOMA, UNSPECIFIED SITE SNOMED Code(s): 940275383 He has seen [facility] and presented with two options, next plan is for prepping of CART T Cell, he is still waiting for approval from insurance. Although with what appears to be progression will plan to bridge. Dr. Wells to discuss with Dr. Weaver but likely move forward with PRO-gianna, he will see Dr. Wells on Thursday Ok for dischare after stool studies are obtained and if c diff negative.
[2022-01-02 16:37] VITALS: BP 135/87; PULSE 119; TEMP 98.3
== END 2022-01-02 19:50 | disposition home health service (06) | DRG 871 ==
LOC: EC 14:31 → 6NMEDSUR 16:11 → OBSVTOIN 12-30 13:05
PROVIDERS: ADMIT Internal Medicine; ATTEND Internal Medicine
DX: A41.9 Sepsis, unspecified organism (principal); J18.9 Pneumonia, unspecified organism; C83.33 Diffuse large B-cell lymphoma, intra-abdominal lymph nodes; J98.11 Atelectasis; E87.1 Hypo-osmolality and hyponatremia; Z20.822 Contact with and (suspected) exposure to COVID-19; I48.0 Paroxysmal atrial fibrillation; R19.09 Other intra-abdominal and pelvic swelling, mass and lump; R07.81 Pleurodynia; D75.839 Thrombocytosis, unspecified; E87.8 Other disorders of electrolyte and fluid balance, not elsewhere classified; R74.8 Abnormal levels of other serum enzymes; K21.00 Gastro-esophageal reflux disease with esophagitis, without bleeding; K29.50 Unspecified chronic gastritis without bleeding; D50.9 Iron deficiency anemia, unspecified; R35.0 Frequency of micturition; I10 Essential (primary) hypertension; E78.5 Hyperlipidemia, unspecified; F32.A Depression, unspecified; F41.9 Anxiety disorder, unspecified; Z88.0 Allergy status to penicillin; Z91.030 Bee allergy status; Z79.899 Other long term (current) drug therapy; Z87.19 Personal history of other diseases of the digestive system; Z92.21 Personal history of antineoplastic chemotherapy; Z82.49 Family history of ischemic heart disease and other diseases of the circulatory system; Z80.3 Family history of malignant neoplasm of breast; I07.1 Rheumatic tricuspid insufficiency
CPT/HCPCS: 36415; 71046; 71275; 74177; 80048; 80053; 80061; 81001; 81003; 82150; 82607; 82728; 82746; 82784; 83540; 83550; 83605; 83615; 83690; 83735; 83880; 84145; 84443; 84484; 84550; 85025; 85027; 85379; 85610; 85730; 86140; 87040; 87045; 87046; 87324; 87502; 87635; 93005; 93306; 94760; 99285

== ENCOUNTER → 2022-07-18 | Outpatient (CLI) | payer BC ==
--- NOTE | 2022-07-18 10:24 | XR ---
EXAMINATION TYPE: XR chest 2V DATE OF EXAM: 07/18/2022 COMPARISON: 12/29/2021 INDICATION: Lymphoma hypertension short of breath TECHNIQUE: Frontal and lateral views of the chest are obtained. FINDINGS: The heart size is normal. The pulmonary vasculature is normal. Mild left basilar atelectasis appears to be present. Port is on the right with the tip in the superior vena cava region. IMPRESSION: 1. Mild left basilar atelectasis.
== END | disposition home or self-care (01) ==
LOC: RADXRMAIN 10:03
PROVIDERS: ATTEND Internal Medicine Hematology & Oncology
DX: J98.11 Atelectasis (principal); C83.38 Diffuse large B-cell lymphoma, lymph nodes of multiple sites; I10 Essential (primary) hypertension; F41.8 Other specified anxiety disorders; R06.02 Shortness of breath
CPT/HCPCS: 71046

== ENCOUNTER → 2022-09-05 | Outpatient (CLI) | payer BC | END | disposition home or self-care (01) | LOC: LABWHC1 11:33 | PROVIDERS: ATTEND Internal Medicine Cardiovascular Disease | DX: I48.0 Paroxysmal atrial fibrillation (principal) | CPT/HCPCS: 36415; 84443; 84450; 84460 ==

== ENCOUNTER → 2022-09-12 | Outpatient (CLI) | payer BC ==
--- NOTE | 2022-09-14 11:10 | PE ---
EXAMINATION TYPE: PET CT fusion skull to thigh DATE OF EXAM: 09/12/2022 CLINICAL INDICATION:Male, 61 years old with history of C83.38; TECHNIQUE: Following the intravenous administration of 10.33 mCi of F-18 FDG, whole body images are performed from the skull base to the midthigh. Images are reviewed on the computer in the coronal, axial, and sagittal planes. Reconstructed rotating images are created on independent workstation and reviewed on the computer. A non-contrast CT is performed in conjunction with the PET scan. Glucose level 85 mg/dL COMPARISON: CT 08/29/2022, 07/23/2022 dating back to 07/14/2021, PET/CT None, FINDINGS: Mediastinal SUV mean is 1.3. Hepatic parenchyma SUV mean is 2.1. SKULL BASE AND NECK: No suspicious radiotracer activity. CHEST, MEDIASTINUM, AND HILAR REGION: No suspicious radiotracer activity. ABDOMEN AND PELVIS: * Large right inferior renal pole mass with internal hyperdensity suspicious for hemorrhage. Overall the large area measures 12.2 x 11.6 cm. Max SUV along the area of suspected hemorrhage is present wh ich could be normal renal/excreted IV contrast. There is relatively no FDG activity centrally within the area of suspected hemorrhage. Area in the most inferior aspect of the hemorrhage measures max SUV 5.5. Mass/kidney abuts the right colon. * Right ureteral stent is in place in appropriate position. * No abnormal lymphadenopathy visualized with increased FDG activity. OSSEOUS STRUCTURES: No suspicious radiotracer activity. OTHER CT: Right chest wall Ifkhqx-e-Glvr with tip in the superior vena cava. The heart is mildly enla rged for size. Scattered colonic diverticula present. Right fat and fluid containing inguinal hernia. Left testicle is not visualized. IMPRESSION: The right kidney demonstrates a large area of suspected hemorrhage with poor visualization on the non contrast CT portion of a definitive mass. Area of FDG activity surrounding this area of hemorrhage co uld represent displaced renal parenchyma with underlying mass not entirely excluded. No evidence for metastatic disease at this time. Area of soft tissue seen on prior CTs within the retroperitoneum is not visualized.
== END | disposition home or self-care (01) ==
LOC: RADPETMAIN 12:36
PROVIDERS: ATTEND Internal Medicine Hematology & Oncology
DX: C83.38 Diffuse large B-cell lymphoma, lymph nodes of multiple sites (principal)
CPT/HCPCS: 78815; A9552

== ENCOUNTER → 2022-10-06 | Outpatient (CLI) | payer BC ==
[2022-10-06 16:46] LABS: HGB 10.3 g/dL (13.0-17.0); MCH 28.6 pg (27.0-32.0); MCHC 30.3 g/dL (32.0-37.0); MCV 94.4 fL (80.0-97.0); Mean Platelet Volume 9.8 fL (9.5-12.2); NRBC Per 100 WBC 0 /100 WBCS (0.0-0.0); Platelet Count 308 X 10*3/uL (140-440); RDW 20.6 % (11.5-14.5); WBC 10.56 X 10*3/uL (4.50-10.00)
[2022-10-06 16:53] LABS: African American GFR (CKD) 107.2 (60.0-200.0); Anion Gap 10.6 mmol/L (10.00-18.00); BUN/Creat Ratio 16.44 Ratio (12.00-20.00); Blood Urea Nitrogen 14.8 mg/dL (9.0-27.0); Calcium 9.1 mg/dL (8.7-10.3); Carbon Dioxide 25.4 mmol/L (20.0-27.5); Non-African American GFR(CKD) 92.5 (60.0-200.0); Potassium 4.8 mmol/L (3.5-5.5)
[2022-10-06 18:16] LABS: Anisocytosis (M) 2+; Basophils # (M) 0.11 X 10*3/uL (0.00-0.10); Eosinophils # (M) 0.11 X 10*3/uL (0.04-0.35); Hypochromasia (M) 2+; Lymphocytes # (M) 0.21 X 10*3/uL (0.90-5.00); Monocytes # (M) 1.16 X 10*3/uL (0.20-1.00); Neutrophils # (M) 8.98 X 10*3/uL (2.00-8.90); Neutrophils % (M) 85 %
== END | disposition home or self-care (01) ==
LOC: LABPAT 09:30
PROVIDERS: ATTEND Urology
DX: Z01.812 Encounter for preprocedural laboratory examination (principal); N13.30 Unspecified hydronephrosis; N35.912 Unspecified bulbous urethral stricture, male
CPT/HCPCS: 80048; 85025

== ENCOUNTER → 2022-11-07 | Outpatient (CLI) | payer BC ==
--- NOTE | 2022-11-09 13:22 | CT ---
EXAMINATION TYPE: CT ChestAbdPelvis w con CT DLP: 2095 mGycm, Automated exposure control for dose reduction was used. DATE OF EXAM: 11/07/2022 3:41 PM COMPARISON: Pet/CT 09/12/2022, CT same back to at least 07/23/2022 CLINICAL INDICATION:Male, 62 years old with history of C83.38 lymphoma; [facility], f/u lymphoma Technique: Multiple axial images of the chest, abdomen, and pelvis were obtained. Two-dimensional cor onal and sagittal reconstructions were obtained. Contrast used:100 mL of Isovue 300 with IV Contrast, Oral contrast used: with Oral Contrast Findings: CHEST: LUNGS/ PLEURA: No focal consolidation, pneumothorax or pleural effusion. AIRWAY: Patent and unremarkable. HEART: Size within normal limits. MEDIASTINUM: No gross evidence of adenopathy. VASCULATURE: No aortic aneurysm. Right chest wall Pqqkju-v-Rtsu tip remains for vena cava. Limit kaylan luation the central pulmonary arterial vasculature does not demonstrate filling defect. MUSCULOSKELETAL: No acute osseous abnormalities. SOFT TISSUES/LYMPH NODES: Unremarkable. LOWER NECK: No significant findings. ABDOMEN: ABDOMEN LIVER: Coronary lobe hypertrophy changes. GALLBLADDER AND BILE DUCTS: Unremarkable. PANCREAS: Lipomatous pseudohypertrophy changes. SPLEEN: Unremarkable. ADRENAL GLANDS: Unremarkable. KIDNEYS AND URETERS: Enlarged right renal mass measuring 9.6 x 8.0 x 7.3 cm which has decreased in si ze from 07/23/2022. There is extension of this mass towards the lateral aspect post approximation to th e bowel. No evidence of right hydronephrosis. Right renal ureteral stent with tips in appropriate position. No evidence of left renal mass or evidence of hydronephrosis. BLADDER: Unremarkable REPRODUCTIVE: Prostate gland is enlarged measuring up to 5.6 cm in transverse dimension. ABDOMEN & PELVIS STOMACH AND BOWEL: No evidence of bowel obstruction. Scattered colonic diverticula are present. PERITONEUM: No evidence of pneumoperitoneum or free fluid. VASCULATURE: No evidence of aortic aneurysm. MUSCULOSKELETAL: No acute osseous abnormalities LYMPH NODES: No gross evidence for lymphadenopathy. SOFT TISSUE/ABDOMINAL WALL: Bilateral fat-containing inguinal hernias. Right greater than left. IMPRESSION: 1. Large right renal mass which impresses upon the colon. Microinvasion is not entirely excluded. Th is has decreased in size compared to 07/23/2022 suggesting resolution of some prior internal hemorrhage that was likely present on prior. 2. No evidence for lymphadenopathy. 3. Right ureteral stent in appropriate position. 4. Prostatomegaly correlate serum PSA. 5. Bilateral fat-containing inguinal hernias. 6. Clonic diverticulosis.
== END | disposition home or self-care (01) ==
LOC: RADCTMAIN 13:39
PROVIDERS: ATTEND Internal Medicine Hematology & Oncology
DX: C83.38 Diffuse large B-cell lymphoma, lymph nodes of multiple sites (principal); N28.89 Other specified disorders of kidney and ureter; N40.0 Benign prostatic hyperplasia without lower urinary tract symptoms; K40.20 Bilateral inguinal hernia, without obstruction or gangrene, not specified as recurrent; K57.30 Diverticulosis of large intestine without perforation or abscess without bleeding; Z96.0 Presence of urogenital implants
CPT/HCPCS: 82565; 84520; 71260; 74177; 36415; Q9967

== ENCOUNTER → 2022-11-10 | Outpatient (CLI) | payer BC ==
[2022-11-10 10:12] LABS: Creatinine,Urine Random 90.5 mg/dL; Protein/Creatinine Ratio,Urine 0.718
[2022-11-10 15:41] LABS: Appearance,Urine Clear (Clear); Bilirubin,Urine Negative (Negative); Blood,Urine Large (Negative); Color,Urine Yellow (Yellow); Ketones,Urine Negative (Negative); Nitrite,Urine Negative (Negative); Specific Gravity,Urine 1.017 (1.001-1.030); Urobilinogen,Urine 0.2 (0.2,1.0)
[2022-11-10 15:43] LABS: Basophils # (A) 0.01 X 10*3/uL (0.00-0.10); Basophils % (A) 0.1 %; Eosinophils # (A) 0.17 X 10*3/uL (0.04-0.35); Eosinophils % (A) 1.9 %; HCT 37.9 % (39.6-50.0); HGB 11.9 g/dL (13.0-17.0); Immature Grans, Automated 1.9 %; Lymphocytes % (A) 2.2 %; MCH 29.3 pg (27.0-32.0); MCHC 31.4 g/dL (32.0-37.0); MCV 93.3 fL (80.0-97.0); Mean Platelet Volume 9.4 fL (9.5-12.2); Monocytes # (A) 1.51 X 10*3/uL (0.20-1.00); Monocytes % (A) 16.5 %; NRBC Per 100 WBC 0.2 /100 WBCS (0.0-0.0); Neutrophils # (A) 7.09 X 10*3/uL (1.80-7.70); Neutrophils % (A) 77.4 %; Platelet Count 393 X 10*3/uL (140-440); RBC 4.06 X 10*6/uL (4.40-5.60); RDW 18.6 % (11.5-14.5); WBC 9.15 X 10*3/uL (4.50-10.00)
[2022-11-10 15:48] LABS: African American GFR (CKD) 75.2 (60.0-200.0); Anion Gap 9.8 mmol/L (10.00-18.00); BUN/Creat Ratio 21.92 Ratio (12.00-20.00); Blood Urea Nitrogen 26.3 mg/dL (9.0-27.0); Calcium 8.4 mg/dL (8.7-10.3); Carbon Dioxide 24.2 mmol/L (20.0-27.5); Magnesium 1.9 mg/dL (1.5-2.4); Non-African American GFR(CKD) 64.9 (60.0-200.0); Phosphorus 3.5 mg/dL (2.4-5.1); Potassium 4.2 mmol/L (3.5-5.5)
[2022-11-10 16:06] LABS: Bacteria,Urine None Seen /HPF (None Seen)
== END | disposition home or self-care (01) ==
LOC: LABWHC1 08:13
PROVIDERS: ATTEND Nurse Practitioner Acute Care
DX: N18.31 Chronic kidney disease, stage 3a (principal); D63.1 Anemia in chronic kidney disease; N39.0 Urinary tract infection, site not specified; R80.9 Proteinuria, unspecified
CPT/HCPCS: 36415; 80048; 81001; 82570; 83735; 84100; 84156; 85025

== ENCOUNTER → 2022-12-05 | Outpatient (CLI) | payer BC ==
--- NOTE | 2022-12-05 15:58 | PE ---
EXAMINATION TYPE: PET CT fusion skull to thigh DATE OF EXAM: 12/05/2022 CLINICAL INDICATION:Male, 62 years old with history of C83.38 Lymphoma; TECHNIQUE: Following the intravenous administration of 12.75 mCi of F-18 FDG, whole body images are performed from the skull base to the midthigh. Images are reviewed on the computer in the coronal, axial, and sagittal planes. Reconstructed rotating images are created on independent workstation and reviewed on the computer. A non-contrast CT is performed in conjunction with the PET scan. Glucose level 83 mg/dL COMPARISON: CT 11/07/2022, PET/CT 09/12/2022, FINDINGS: Mediastinal SUV mean is 0.9. Hepatic parenchyma SUV mean is 2.9. SKULL BASE AND NECK: No suspicious radiotracer activity. Physiologic uptake in the left mandible max SUV 3.95 likely secondary to periodontal disease. CHEST, MEDIASTINUM, AND HILAR REGION: No suspicious radiotracer activity. ABDOMEN AND PELVIS: * Interval decrease in size of right inferior renal pole mass now measuring 9.2 x 7.7 cm previously 12.2 x 11.6 cm. Max SUV along the area of suspected hemorrhage is present which could be normal renal /excreted IV contrast. There is relatively no FDG activity centrally. Area in the most inferior aspec t of the hemorrhage measures max SUV 1.8, previously 5.5. The mass continues to abuts the right colon . * Right ureteral stent is in place in appropriate position. * No abnormal lymphadenopathy visualized with increased FDG activity. OSSEOUS STRUCTURES: No suspicious radiotracer activity. OTHER CT: Right chest wall [id number] with tip in the superior vena cava. The heart is mildly enla rged for size. Scattered colonic diverticula present. Right fat and fluid containing inguinal hernia. Left testicle is not visualized. IMPRESSION: Interval decrease in right renal mass size and metabolic activity along the periphery. There remains no evidence for metastatic disease at this time.
== END | disposition home or self-care (01) ==
LOC: RADPETMAIN 10:46
PROVIDERS: ATTEND Internal Medicine Hematology & Oncology
DX: C83.38 Diffuse large B-cell lymphoma, lymph nodes of multiple sites (principal); N28.89 Other specified disorders of kidney and ureter
CPT/HCPCS: 78815; A9552